=== PATIENT | female | born 1975 | race Caucasian/White ===

== ENCOUNTER 2023-10-22 19:45 | Outpatient (OUT) | payer OTHER, BC, SELFPAY ==
[2023-10-28 14:10] LABS: Age Gdln ACOG Testing Note (.); HPV Aptima Negative (Negative); IGP, Aptima HPV, rfx 16/18,45 Note (.)
== END 2023-10-22 19:46 | disposition home or self-care (01) ==
LOC: LAB 19:50
PROVIDERS: Visit Provider Obstetrics & Gynecology
DX: Z01.419 Encounter for gynecological examination (general) (routine) without abnormal findings (principal)
CPT/HCPCS: 87624; G0145

== ENCOUNTER 2024-10-26 20:37 | Outpatient (REF) | payer OTHER, BC, SELFPAY ==
--- OUTSIDE RECORDS SUMMARY | 2024-10-26 20:41 | XMS_ITS | CCD ---
Author Organization [facility] Care Team Providers Care Vineyard Worker Name Role Phone Triston James MD Primary Care Provider Luc James Unavailable TRISTON JAMES Primary Care Physician Triston James MD Primary Care Provider DR LUIS ANGEL MONAE Admitting Unavailable LETHA, DR LUIS ANGEL Byrne Attending Unavailable NINA, DR HAWTHORNE Referring Unavailable ERIKA, DR TRISTON Wilkins Primary Care Unavailable NINA, DR HAWTHORNE Admitting Unavailable NINA, DR HAWTHORNE Attending Unavailable ERIKA, DR TRISTON Wilkins Primary Care Unavailable NINA, DR HAWTHORNE Consulting Unavailable ERIKA, DR TRISTON Wilkins Admitting Unavailable ERIKA, DR TRISTON Wilkins Attending Unavailable ERIKA, DR TRISTON Wilkins Primary Care Unavailable ERIKA, DR TRISTON Wilkins Consulting Unavailable ERIKA, DR TRISTON Wilkins Primary Care Unavailable JEISON MOSCOSO Admitting Unavailable JEISON MOSCOSO Attending Unavailable JEISON MOSCOSO Consulting Unavailable Triston James Unavailable TRISTON JAMES Primary Care Unavailable RUTH APODACA Attending Unavailable RUTH APODACA Attending Unavailable TRISTON JAMES Primary Care Unavailable RUTH APODACA Attending Unavailable TRISTON JAMES Primary Care Unavailable MD Triston James Primary Care Provider MD Ganesh May Attending Provider GEORGE WOOD Attending Unavailable Triston James MD Primary Care Provider [phone] Kang Blanco Attending Unavailable Kang Blanco Admitting Unavailable Triston James Primary Care Unavailable MD Triston James Primary Care Provider [phone] MD Kang Blanco Attending Provider [phone] Kang BLANCO Attending Unavailable Kang BLANCO Attending Unavailable JAMES, TRISTON E Referring Unavailable JAMES, TRISTON E Primary Care Unavailable JAMES, TRISTON E Primary Care Unavailable CAMPBELL, NICKO Wilkins Attending Unavailable CAMPBELL, NICKO E Referring Unavailable JAMES, TRISTON E Referring Unavailable JAMES, TRISTON E Primary Care Unavailable CAMPBELL, NICKO E Admitting Unavailable CAMPBELL, NICKO E Attending Unavailable JAMES, TRISTON E Primary Care Unavailable ROSE MARIE BRYANT Attending Unavailable JAMES, TRISTON E Primary Care Unavailable CAMPBELL, NICKO E Attending Unavailable CAMPBELL, NICKO E Referring Unavailable JAMES, TRISTON E Referring Unavailable JAMES, TRISTON E Primary Care Unavailable CAMPBELL, NICKO E Admitting Unavailable CAMPBELL, NICKO E Attending Unavailable JAMES, TRISTON E Primary Care Unavailable MAP EMMANUELFrancisco Javier Carter Referring Unavailable JAMES, TRISTON E Primary Care Unavailable CAMPBELL, NICKO E Attending Unavailable CAMPBELL, NICKO E Referring Unavailable JAMES, TRISTON E Primary Care Unavailable CAMPBELL, NICKO E Attending Unavailable CAMPBELL, NICKO E Admitting Unavailable CAMPBELL, NICKO E Referring Unavailable JAMES, TRISTON E Primary Care Unavailable ANGELITA MIRANDA Attending Unavailable JAMES, TRISTON E Referring Unavailable JAMES, TRISTON E Primary Care Unavailable NIENBERG, KENNETH Byrne Attending Unavailable JAMES, TRISTON E Referring Unavailable JAMES, TRISTON E Primary Care Unavailable NIENBERG, KENNETH Byrne Attending Unavailable JAMES, TRISTON E Primary Care Unavailable GEORGE WOOD Referring Unavailable JAMES, TRISTON E Referring Unavailable JAMES, TRISTON E Primary Care Unavailable JAMES, TRISTON E Referring Unavailable JAMES, TRISTON E Primary Care Unavailable NIENBERG, KENNETH Byrne Attending Unavailable JAMES, TRISTON E Primary Care Unavailable JAMES, TRISTON E Referring Unavailable CAMPBELL, NICKO E Admitting Unavailable CAMPBELL, NICKO E Attending Unavailable JAMES, TRISTON E Primary Care Unavailable NIENBERGKENNETH S Referring Unavailable NIENBERG, KENNETH Byrne Attending Unavailable JAMES, TRISTON E Referring Unavailable JAMES, TRISTON E Primary Care Unavailable NIENBERG, KENNETH Byrne Attending Unavailable JAMES, TRISTON E Referring Unavailable JAMES, TRISTON E Primary Care Unavailable CAMPBELL, NICKO E Admitting Unavailable CAMPBELL, NICKO E Attending Unavailable JAMES, TRISTON E Primary Care Unavailable CAMPBELL, NICKO Wilkins Attending Unavailable CAMPBELL, NICKO Wilkins Referring Unavailable James Triston LARSEN Primary Care Unasmith Fan PA-C, Macarena Sloan Attending Delia Fan PA-C, Macarena Sloan Attending Triston Mina MDzabeth Primary Care Munira James MD, Triston Fiore Primary Care Unava ilthien Fan PA-C, Macarena Sloan Attending Delia James MD, Triston Fiore Primary Care Tosinva win Reyes PA-C, Kenneth Soto Referring Un available Mita ROMO, Macarena Sloan Attending Delia James MD, Triston Primary Care Provider Allergies Allergy Classification Reported Allergen(s) Allergy Type Date of Onset Reaction(s) Facility (20 sources) oxaprozin; Translations: [OXAPROZIN] Drug Allergy 11-30-19 [facility] (20 sources) Sulfamethoxazole / Trimethoprim; Translations: [sulfamethoxazole-t rimethoprim] Drug Allergy 02-28-20 Cough, [facility] (20 sources) Doxycycline; Translations: [doxycycline] Drug Allergy 09-27-20 Rash [facility] (17 sources) Cat Dander; Translations: [CAT DANDER] Drug Allergy 09-27-20 Other: See Comments [facility] (18 sources) Sulfacetamide / Sulfur Drug Allergy Unknown [facility] Other (5 sources) Cat; Translations: [Cats] Propensity to adverse reactions to substance Mild (qualifier value) [facility] (13 sources) Sulfamethoxazole; Translations: [sulfamethoxazole] Drug Allergy 09-27-20 Other (See Comments) [facility] (2 sources) oxaprozin Drug Allergy [facility] (2 sources) Sulfamethoxazole / Trimethoprim Drug Allergy 07-17-20 13 [facility] (12 sources) Substance with sulfonamide structure and antibacterial mechanism of action (substance) Drug allergy 10-17-19 24 Unknown [facility] Other (9 sources) Ultram *ANALGESICS - OPIOID* Propensity to adverse reactions Unknown [facility] Other (9 sources) Ceftin *CEPHALOSPORINS* Propensity to adverse reactions Unknown [facility] Other (7 sources) Cephalosporins (Antibiotic) Allergy to substance 01-21-20 Unknown Reaction [facility] (7 sources) Sulfacetamide Drug Allergy 01-21-20 Unknown Reaction [facility] (7 sources) Sulfonamides (Antibiotic) Allergy to substance 01-21-20 Unknown Reaction [facility] (10 sources) traMADol Drug Allergy 10-17-19 Unknown Reaction [facility] (7 sources) Trimethoprim Drug Allergy 01-21-20 Unknown Reaction [facility] (6 sources) empagliflozin Drug Allergy 02-12-20 Itching [facility] (6 sources) metFORMIN Drug Allergy 02-12-20 Diarrhea [facility] (2 sources) Sulfamethoxazole / Trimethoprim; Translations: [Bactrim] Drug Allergy [facility] (3 sources) Cefuroxime Drug Allergy 10-17-19 [facility] Work Phone: (2 sources) Sulfamethoxazole Propensity to adverse reactions 09-27-20 [facility] Medications Current Medications Medication Drug Class(es) Dates Sig (Normalized) Sig (Original) 0.25 MG, 0.5 MG Dose 3 ML semaglutide 0.68 MG/ML Pen Injector [Ozempic] (1 source) Start: 02-24-2024 Ozempic 2 mg/3 mL (0.25 mg or 0.5 mg dose) subcutaneous solution mg, SubCutaneous, qWeek, Refills(s) 0 Start Date: 02/24/24 Status: Ordered 3 ML insulin glargine-yfgn 100 UNT/ML Pen Injector [Semglee] (3 sources) Start: 05-21-2022 Semglee (Prefilled Pen) 100 units/mL subcutaneous solution Start Date: 05/21/22 Status: Ordered acarbose 25 mg oral tablet (5 sources) alpha-Glucosidas e Inhibitor Start: 11-20-2021 take 1 mg by mouth three times daily acarbose 25 mg oral tablet mg tab(s), Oral, TID, Refills(s) 0 Start Date: 11/20/21 Status: Ordered Start: 10-27-2021 End: 02-05-2022 take 1 tablet by mouth once daily at dinner acarbose (PRECOSE) 25 mg tablet Indications: Uncontrolled type 2 diabetes mellitus with hyperglycemia, without long-term current use of insulin (HCC) Take 1 tablet by mouth daily with dinner. 90 tablet 1 10/27/2021 02/05/2022 Discontinued (Discontinued by Patient) Comment on above: Take 1 tablet by sharon th daily with dinner. cetirizine hydrochloride 10 mg oral capsule (20 sources) Histamine-1 Receptor Antagonist Start: take 1 capsule by mouth once daily Cetirizine (Allergy Relief (Cetirizine)) 10 mg capsule Active 0 .ROUTE .COMPLEX July 14, 2024 10:58am TAKE 1 CAPSULE BY MOUTH EVERY DAY Start: 10-14-2023 End: 07-14-2024 take 1 capsule by mouth in the morning [facility] 10 MG capsule Take 1 capsule by mouth in the morning. 10/14/2023 Active Start: 03-23-2022 take 1 tablet by sharon th in the morning cetirizine (ZyrTEC) 10 mg tablet Take 1 tablet (10 mg total) by mouth in the morning. 03/23/2022 Active Start: 08-24-2015 take 1 capsule by mo uth once daily Cetirizine (ZYRTEC) 10 mg cap Take 10 mg by mouth once daily. 0 08/24/2015 Active Comment on above: Take 10 mg by mouth once daily. clobetasol propionate 0.5 mg/ml topical cream (6 sources) Corticosteroid Start: clobetasoL (TEMOVATE) 0.05 % cream Apply 1 Application topically in the morning. 05/07/2022 Active [facility] 10 MG (17 sources) take 1 capsule by mouth once daily [facility] 10 MG TAKE 1 CAPSULE BY MOUTH EVERY DAY for 25 Active take 1 capsule by mouth once christina ly [facility] 10 MG 1 capsule Orally Once a day for 30 day(s) Active [facility] ALLERGY(CETRZN) 10 MG SFGL (1 source) Start: 02-24-2024 [facility] ALL[facility](CETRZN) 10 MG SFGL [facility] ALLERGY(CETRZN) 10 MG SFGL Start Date: 02/24/24 Status: Ordered diclofenac sodium 50 mg delayed release oral tablet (4 sources) Nonsteroidal Anti-inflammatory Drug Start: 06-17-2023 End: 10-26-2024 diclofenac (Voltaren) 50 MG EC tablet 06/17/2023 10/26/2024 Discontinued (Other) docusate sodium 100 mg oral capsule (9 sources) Start: 12-07-2020 take 2 capsules by mouth every twenty-four hours Dulcolax Stool Softener 100 MG 2 capsule as needed Orally Once a day for 90 days Nov, Active Start: 12-07-2020 take 2 capsules by m outh once daily as needed Dulcolax Stool Softener 100 MG 2 capsule as needed Orally Once a day for 90 days Nov, Active empagliflozin 10 mg oral tablet (11 sources) Sodium-Glucose Cotransporter 2 Inhibitor Start: 04-10-2023 take 1 tablet by mouth every twenty-four hours JARDIANCE 10 MG 1 tablet Orally Once a day for 90 days Mar, Active Start: 02-18-2023 Jardiance Oral , qAM Start Date: 02/18/23 Status: Ordered Start: 11-08-2022 End: 01-04-2023 take 1 tablet by mouth once daily at breakfast empagliflozin (JARDIANCE) 10 mg tablet Take 1 tablet by mouth daily with breakfast. 90 tablet 0 01/04/2023 Active Comment on above: Take 1 tablet by sharon th daily with breakfast. esomeprazole 40 mg delayed release oral capsule (20 sources) Proton Pump Inhibitor Start: End: take 1 capsule by mouth once daily Esomeprazole Magnesium (Nexium) 40 mg capsule,delayed release(DR/EC) Active 40 MG PO Daily April 06, 2024 12:51pm Start: 05-14-2017 take 40 mg by mouth once daily Nexium 40 mg, Oral, Daily, Refills(s) 0, Control of stomach acid Start Date: 05/14/17 Status: Ordered Comment on above: Take 40 mg by mouth once daily. ethinyl estradiol 0.035 mg / norethindrone acetate 1 mg oral tablet (20 sources) Estrogen Start: 08-10-2024 End: 10-26-2025 norethindrone-ethinyl estradiol (Ortho-Novum, Nortrel) 1-35 MG-MCG tablet Indications: Well woman exam with routine gynecological exam Take 1 tablet by mouth Daily 28 tablet 11 10/26/2024 10/26/2025 Active Start: 01-17-2024 take 1 tablet by sharon th once daily Norethindrone-Ethin Estradiol Active 1 TAB PO Daily January 17, 2024 12:00am Start: 06-26-2023 NORTREL 1/35, 28, 1-35 mg-mcg per tablet 06/26/2023 Active Start: 03-23-2020 take 1 tablet by sharon th once daily Pirmella 1/35 oral tablet 1 tab(s), Oral, Daily, control/menstrual regulation Start Date: 03/23/20 Status: Ordered Start: 11-02-2019 take 1 tablet by sharon th once daily Norethindrone-Eth Estradiol 1-35 mg-mcg per tablet Take 1 tablet by mouth once daily. 0 11/02/2019 Active Nortrel 1/35 (21 ) 1-35 MG-MCG as directed Orally Active Nortrel 1/35 (21 ) 1-35 MG-MCG as directed Orally Active Comment on above: Take 1 tablet by sharon th once daily. ferrous sulfate 325 mg oral tablet (19 sources) Start: 9 take 325 mg by mouth once daily Ferrous Sulfate Active 325 MG PO Daily February 12, 2024 12:00am fluconazole 150 mg oral tablet (1 source) Azole Antifungal Start: 2 End: 2 take 1 tablet by mouth once fluconazole (DIFLUCAN) 150 mg tablet Indications: Vaginal yeast infection Take 1 tablet by mouth one time only for 1 dose. 1 tablet 1 02/15/2022 02/15/2022 Active Comment on above: Take 1 tablet by sharon one time only for 1 dose. fluorouracil 50 mg/ml topical cream (2 sources) Nucleoside Metabolic Inhibitor Start: 4 fluorouracil (Efudex) 5 % cream APPLY 1-2 GRAMS TO CHEST TWICE DAILY UP TO THREE WEEKS. 09/22/2024 Active gabapentin 800 mg oral tablet (20 sources) Anti-epileptic Agent Start: 4 End: 4 take 800 mg by mouth once daily Gabapentin Active 800 MG PO Daily August 03, 2024 8:27pm Start: 05-14-2017 take 300 mg by mouth once jailyn y gabapentin 300 mg, Oral, Daily, Refills(s) 0, Pain Start Date: 05/14/17 Status: Ordered take 2 capsules by m outh at bedtime gabapentin (Neurontin) 300 MG capsule Take 600 mg by mouth at bedtime Active take 1 tablet by sharon th every twenty-four hours Gabapentin 800 MG 1 tablet Orally Once a day for 90 days Active Comment on above: Take 600 mg by mouth once daily. hydroCHLOROthiazide 25 mg oral tablet (20 sources) Thiazide Diuretic Start : 07-21 End: 02-12 hydroCHLOROthiazide (HYDRODiuril) 25 MG tablet 09/20/2023 Active hydroxychloroquine sulfate 200 mg oral tablet (7 sources) Antimalarial, Antirheumatic Agent Start : 08-10 take 1 tablet by mouth in the morning hydrOXYchloroQUINE (PLAQUENIL) 200 mg tablet Take 1 tablet (200 mg total) by mouth in the morning. 08/10/2020 Active ibuprofen 800 mg oral tablet (20 sources) Nonsteroidal Anti-inflammatory Drug Start : 06-10 ibuprofen 800 MG tablet Indications: Other chronic pain TAKE 1 TABLET THREE TIMES A DAY NEEDED 270 tablet 3 06/10/2023 Active Start: 10-12-2021 take 1 tablet by sharon th every eight hours as needed for pain ibuprofen (ADVIL,MOTRIN) 800 mg tablet Indications: Vaginal pain Take 1 tablet (800 mg total) by mouth every 8 (eight) hours as needed for pain. 30 tablet 3 10/12/2021 Active Start: 09-22-2019 take 1 tablet by sharon th every eight hours as needed ibuprofen (MOTRIN) 800 mg tablet Take 800 mg by mouth three times daily as needed. 0 09/22/2019 Active Start: 05-14-2017 take 800 mg by mouth every six hours as needed for pain ibuprofen 800 mg, Oral, q6hr, PRN as needed for pain, Refills(s) 0 Start Date: 05/14/17 Status: Ordered Comment on above: Take 800 mg by mouth three times daily as needed. Insulin Glargine-Yfgn (Semglee(Insulin Glarg-Yfgn)Pen) 100 unit/mL (3 mL) insulin pen (12 sources) Start: 06-11-2024 Insulin Glargine-Yfgn (Semglee(Insulin Glarg-Yfgn)Pen) 100 unit/mL (3 mL) insulin pen Active 36 UNIT SUBCUT Every evening June 11, 2024 4:10pm Start: 06-11-2024 End: 06-11-2024 Insulin Glargine-Yfgn (Semgl ee(Insulin Glarg-Yfgn)Pen) 100 unit/mL (3 mL) insulin pen Discontinued 36 UNIT SUBCUT Every evening June 11, 2024 4:10pm June 11, 2024 4:11pm Start: 02-12-2024 End: 06-11-2024 Insulin Glargine-Yfgn (Semgl ee(Insulin Glarg-Yfgn)Pen) 100 unit/mL (3 mL) insulin pen Discontinued 40 UNIT SUBCUT Every evening February 12, 2024 12:00am June 11, 2024 4:10pm Start: 02-12-2024 Insulin Glargi ne-Yfgn (Semglee(Insulin Glarg-Yfgn)Pen) 100 unit/mL (3 mL) insulin pen Active 40 UNIT SUBCUT Every evening February 12, 2024 12:00am insulin glargine-yfgn 100 unit/mL (3 mL) insulin pen (7 sources) Start: 02-26-2022 insulin glargi ne-yfgn 100 unit/mL (3 mL) insulin pen Inject 30 unit(s) each evening before bed 02/26/2022 Active Start: 02-26-2022 insulin glargi ne-yfgn 100 unit/mL (3 mL) insulin pen Inject 30 unit(s) each evening before bed 0 02/26/2022 Active insulin isophane, human 100 unt/ml injectable suspension (1 source) inject 0.07 mL by subcutaneous injection once insulin NPH (HumuLIN N,NovoLIN N) 100 unit/mL injection Inject 0.07 mL (7 Units total) under the skin once. Patient took one time before having pain procedure done 09/04/24 Active lidocaine 0.05 mg/mg topical ointment (15 sources) Antiarrhythmic, Amide Local Anesthetic Start: 019 lidocaine (XYLOCAINE) 5 % ointment Indications: Vaginal pain Apply 1 application topically as needed for pain. 35.44 g 2 10/12/2021 Active Comment on above: Apply 1 application to affected area at bedtime as needed. loperamide hydrochloride 2 mg oral capsule (12 sources) Opioid Agonist Start: 019 take 1 capsule by mouth every six hours as needed loperamide 2 mg Cap 2 mg = 1 cap(s), Oral, q6hr, PRN as needed for loose stool Start Date: 03/23/20 Status: Ordered Comment on above: Take 2 mg by mouth a s needed. meloxicam 15 mg oral tablet (20 sources) Nonsteroidal Anti-inflammatory Drug Start: End: take 1 tablet by mouth in the morning meloxicam (Mobic) 15 MG tablet Take 15 mg by mouth in the morning. 05/27/2023 Active metFORMIN hydrochloride 1000 mg oral tablet (7 sources) Biguanide take 1 tablet by mouth once daily at breakfast metFORMIN (GLUCOPHAGE) 1000 mg tablet Take 1 tablet (1,000 mg total) by mouth daily with breakfast. Active milnacipran hydrochloride 100 mg oral tablet (20 sources) Serotonin and Norepinephrine Reuptake Inhibitor Start: take 100 mg by mouth twice daily Milnacipran Active 100 MG PO Twice daily January 17, 2024 12:00am Start: 05-14-2017 take 100 mg by mouth once jailyn y Savella 100 mg, Oral, Daily, Refills(s) 0, Other (see comment) Start Date: 05/14/17 Status: Ordered Comment on above: Take 100 mg by mouth once daily. 120 actuat mometasone furoate 0.2 mg/actuat metered dose inhaler (7 sources) Corticosteroid take 1 puff(s) by inhalation once daily in the evening mometasone (ASMANEX HFA) 200 mcg/actuation HFA aerosol inhaler 1 puff in the evening Inhalation Once a day Active montelukast (20 sources) Leukotriene Receptor Antagonist Start: 05-01-20 Montelukast Active 0 .ROUTE .COMPLEX May 01, 2024 10:52am TAKE 1 TABLET AT BEDTIME Start: 02-04-2024 End: 05-01-2024 Montelukast Discontinued 0 . ROUTE .COMPLEX February 04, 2024 9:43am May 01, 2024 10:52am TAKE 1 TABLET AT BEDTIME Start: 02-04-2024 Montelukast Ac tive 0 .ROUTE .COMPLEX February 04, 2024 9:43am TAKE 1 TABLET AT BEDTIME Start: 08-28-2018 End: 02-04-2024 take 10 mg by mouth once daily at bedtime Montelukast Discontinued 10 MG PO Daily at bedtime January 17, 2024 12:00am February 04, 2024 9:43am Singulair Active Comment on above: Take 10 mg by mouth once daily. 24 hr propranolol hydrochloride 160 mg extended release oral capsule (20 sources) beta-Adrenergic Alexa Start: 07-16-2024 Propranolol Active 0 .ROUTE .COMPLEX 90 July 16, 2024 10:26am TAKE 1 CAPSULE DAILY Start: 01-17-2024 End: 07-16-2024 take 160 mg by mouth once daily Propranolol Discontinued 160 MG PO Daily January 17, 2024 12:00am July 16, 2024 10:26am Start: 11-25-2019 take 160 mg by mouth once daily propranolol ER (INDERAL LA) 160 mg Cs24 Take 160 mg by mouth once daily. 0 11/25/2019 Active Start: 05-14-2017 take 160 mg by mouth once daily propranolol 160 mg, Oral, Daily, Refills(s) 0, High blood pressure Start Date: 05/14/17 Status: Ordered Comment on above: Take 160 mg by mouth once daily. pyridoxine (6 sources) Start: 02-12-2024 take 100 mg by mouth once daily pyridoxine (vitamin B6) Active 100 MG PO Daily February 12, 2024 12:00am Semaglutide (8 sources) Start: 06-11-2024 inject 1 mg by subcutaneous injection every week Semaglutide (Ozempic) 1 mg/dose (4 mg/3 mL) pen injector Active 1 MG SUBCUT every week June 11, 2024 4:11pm Start: 02-27-2024 End: 06-11-2024 inject 1 mg by subcutaneous injection every week Semaglutide (Ozempic) 1 mg/dose (4 mg/3 mL) pen injector Discontinued 1 MG SUBCUT every week February 27, 2024 12:00am June 11, 2024 4:11pm Start: 02-27-2024 inject 1 mg by subcu taneous injection every week Semaglutide (Ozempic) 1 mg/dose (4 mg/3 mL) pen injector Active 1 MG SUBCUT every week 9 February 27, 2024 12:00am 0.25 mg, 0.5 mg dose 1.5 ml semaglutide 1.34 mg/ml pen injector (5 sources) semaglutide (OZE MPIC) 0.25 mg or 0.5 mg(2 mg/1.5 mL) pen injector Inject 0.25 mg under the skin every 7 days. Active Semglee 100 UNIT/ML (9 sources) Semglee 100 UNIT /ML 40 units Subcutaneous before bed for 90 days Active Semglee 100 UNIT /ML 40 units Subcutaneous before bed Active Semglee, yfgn, 100 UNIT/ML pen (3 sources) inject 40 [IU] by subcutaneous injection at bedtime Semglee, yfgn, 100 UNIT/ML pen INJECT 40 UNITS UNDER THE SKIN BEFORE BEDTIME Active SITagliptin 25 mg oral tablet (7 sources) Dipeptidyl Peptidase 4 Inhibitor take 1 tablet by mouth in the morning SITagliptin (JANUVIA) 25 mg tablet Take 1 tablet (25 mg total) by mouth in the morning. Active SUMAtriptan 100 mg oral tablet (20 sources) Serotonin-1b and Serotonin-1d Receptor Agonist Start: 11-20-19 SUMAtriptan (Imitrex) 100 MG tablet 11/20/2022 Active Start: 11-20-2022 take 1 tablet by sharon th every two hours as needed, then take 1 tablet by mouth twice daily as needed SUMAtriptan Succinate 100 MG 1 tablet at least 2 hours between doses as needed Orally Twice a day for 90 days Nov, Active traZODone hydrochloride 150 mg oral tablet (20 sources) Serotonin Reuptake Inhibitor Start: 01-29-2024 Trazodone Active 0 .ROUTE .COMPLEX 90 January 29, 2024 9:42pm TAKE 1 TABLET AT BEDTIME Start: 05-14-2017 End: 01-29-2024 take 150 mg by mouth once daily at bedtime Trazodone Discontinued 150 MG PO Daily at bedtime January 17, 2024 12:00am January 29, 2024 9:42pm take 1 tablet by sharon th every twenty-four hours in the morning traZODone (OLEPTRO) 150 mg tablet extended release 24 hr Take 1 tablet (150 mg total) by mouth in the morning. Active Comment on above: Take 150 mg by mouth daily at bedtime. vitamin b6 100 mg oral tablet (7 sources) take 1 tablet by mouth in the morning pyridoxine, vitamin B6, (B-6) 100 mg tablet Take 1 tablet (100 mg total) by mouth in the morning. Active Zinc (7 sources) take 1 tablet by mouth in the morning zinc 50 mg tablet tablet Take 1 tablet (50 mg total) by mouth in the morning. Active take 1 tablet by mouth in the mo rning zinc 50 mg tablet tablet Take 1 tablet (50 mg total) by mouth in the morning. 0 Active zinc gluconate 50 mg oral tablet (6 sources) Start: 02-12-2024 take 50 mg by mouth once daily Zinc Gluconate Active 50 MG PO Daily February 12, 2024 12:00am Completed/Discontinued Medications Medication Drug Class(es) Dates Sig (Normalized) Sig (Original) amoxicillin 500 mg oral capsule (9 sources) Penicillin-class Antibacterial Start: 10-24-2019 take 1 capsule by mouth twice daily amoxicillin (POLYMOX, AMOXIL) 500 mg capsule Take 500 mg by mouth twice daily. 0 10/24/2019 Active Comment on above: Take 500 mg by mouth twice daily. canagliflozin 300 mg oral tablet (16 sources) Sodium-Glucose Cotransporter 2 Inhibitor Start: 02-05-2022 End: 02-06-2022 take 1 tablet by mouth once daily at breakfast canagliflozin (INVOKANA) 300 mg tablet Indications: Uncontrolled type 2 diabetes mellitus with hyperglycemia, without long-term current use of insulin (HCC) Take 1 tablet by mouth daily with breakfast. 90 tablet 3 02/06/2022 Active Start: 08-18-2021 take 1 tablet by sharon th in the morning INVOKANA 100 mg tablet Take 1 tablet (100 mg total) by mouth in the morning. 08/18/2021 Active Start: 08-18-2021 End: 02-05-2022 take 1 tablet by mouth twice daily canagliflozin (INVOKANA) 100 mg tab Indications: Uncontrolled type 2 diabetes mellitus with hyperglycemia, without long-term current use of insulin (HCC) Take 1 tablet by mouth twice daily. 0 12/01/2021 02/05/2022 Discontinued Comment on above: Take 1 tablet by sharon th twice daily. Take 1 tablet by sharon th daily with breakfast. carisoprodol 350 mg oral tablet (20 sources) Muscle Relaxant Start: End: take 350 mg by mouth once daily at bedtime Carisoprodol Discontinued 350 MG PO Daily at bedtime January 17, 2024 12:00am February 24, 2024 12:51pm carisoprodol (SO MA) 350 mg tablet Take 250 mg by mouth Daily before evening meal. Active Comment on above: Take 350 mg by mouth once daily. dicyclomine hydrochloride 10 mg oral capsule (5 sources) Anticholinergic End: dicyclomine (BENTYL) 10 mg capsule Take 10 mg by mouth as needed. 0 02/26/2022 Discontinued (Discontinued by Patient) Comment on above: Take 10 mg by mouth as needed. 3 ml insulin glargine 100 unt/ml pen injector (20 sources) Insulin Analog Start: End: inject 40 [IU] by subcutaneous injection once daily in the evening Insulin Glargine Discontinued 40 UNIT SUBCUT Every evening February 12, 2024 7:26am February 27, 2024 4:16pm Start: 01-21-2024 End: 01-21-2024 inject 40 [IU] by subcutaneous injection twice daily Insulin Glargine Discontinued 40 UNIT SUBCUT Twice daily January 21, 2024 12:00am January 21, 2024 3:40pm Start: 01-17-2024 End: 01-21-2024 inject 40 [IU] by subcutaneous injection once daily in the evening Insulin Glargine Discontinued 40 UNIT SUBCUT Every evening January 17, 2024 12:00am January 21, 2024 3:02pm Start: 02-05-2022 insulin glargi ne (LANTUS SOLOSTAR, BASAGLAR KWIKPEN) 100 unit/mL (3 mL) Inject 10 Units subcutaneously each evening 5 Pen 1 02/05/2022 Active Comment on above: Inject 10 Units subc utaneously each evening insulin glargine-yfgn (SEMGLEE,INSULIN GLARG-YFGN,PEN) 100 unit/mL (3 mL) insulin pen (10 sources) Start: 01-04-2023 insulin glargine-yfgn (SEMGLEE,INSULIN GLARG-YFGN,PEN) 100 unit/mL (3 mL) insulin pen Inject 40 unit(s) each evening before bed 15 Each 0 01/04/2023 Active Start: 10-12-2022 End: 01-04-2023 insulin glargine-yfgn (SEMGL EE,INSULIN GLARG-YFGN,PEN) 100 unit/mL (3 mL) insulin pen Inject 30 unit(s) each evening before bed 15 Each 1 10/12/2022 01/04/2023 Discontinued Start: 10-12-2022 insulin glargi ne-yfgn (SEMGLEE,INSULIN GLARG-YFGN,PEN) 100 unit/mL (3 mL) insulin pen Inject 30 unit(s) each evening before bed 15 Each 1 10/12/2022 Active Start: 02-26-2022 End: 10-12-2022 insulin glargine-yfgn (SEMGL EE,INSULIN GLARG-YFGN,PEN) 100 unit/mL (3 mL) insulin pen Inject 30 unit(s) each evening before bed 15 Pen 1 02/26/2022 10/12/2022 Discontinued Start: 02-26-2022 insulin glargi ne-yfgn (SEMGLEE,INSULIN GLARG-YFGN,PEN) 100 unit/mL (3 mL) insulin pen Inject 30 unit(s) each evening before bed 15 Pen 1 02/26/2022 Active Start: 02-06-2022 End: 02-26-2022 insulin glargine-yfgn (SEMGL EE,INSULIN GLARG-YFGN,PEN) 100 unit/mL (3 mL) insulin pen Inject 6 unit(s) each evening before bed 5 Pen 0 02/06/2022 02/26/2022 Discontinued Start: 02-06-2022 insulin glargi ne-yfgn (SEMGLEE,INSULIN GLARG-YFGN,PEN) 100 unit/mL (3 mL) insulin pen Inject 6 unit(s) each evening before bed 5 Pen 0 02/06/2022 Active Comment on above: Inject 6 unit(s) eac h evening before bed Inject 30 unit(s) ea ch evening before bed Inject 40 unit(s) ea ch evening before bed methylPREDNISolone (18 sources) Corticosteroid Start: 2017 Depo-Medrol 40 mg Sep, 40 mg pioglitazone 15 mg oral tablet (20 sources) Peroxisome Proliferator Receptor alpha Agonist, Peroxisome Proliferator Receptor gamma Agonist, Thiazolidinedione Start: 2023 End: 2023 take 0.5 tablet by mouth once daily Pioglitazone Discontinued 0 .ROUTE .COMPLEX 90 March 10, 2024 7:22am June 11, 2024 3:42pm TAKE 1/2 TABLET BY MOUTH DAILY Start: 02-12-2024 End: 03-10-2024 take 15 mg by mouth once daily Pioglitazone Discontinu ed 15 MG PO Daily February 12, 2024 10:15am March 10, 2024 7:22am Start: 01-17-2024 End: 02-12-2024 take 30 mg by mouth once daily Pioglitazone Discontinu ed 30 MG PO Daily January 17, 2024 12:00am February 12, 2024 10:21am Start: 01-04-2023 take 1 tablet by sharon th in the morning pioglitazone (Actos) 15 MG tablet Take 15 mg by mouth in the morning. 01/04/2023 Active Start: 09-18-2021 End: 02-26-2022 pioglitazone (ACTOS) 15 mg t ablet Indications: Uncontrolled type 2 diabetes mellitus with hyperglycemia, without long-term current use of insulin (HCC) TAKE 1 TABLET TWICE A DAY WITH MEALS 180 tablet 0 01/19/2022 02/26/2022 Discontinued Start: 05-15-2021 End: 06-11-2024 take 15 mg by mouth once daily Pioglitazone Discontinu ed 15 MG PO Daily June 11, 2024 12:00am June 11, 2024 4:11pm take 1 tablet by sharon th every twenty-four hours Pioglitazone HCl 30 MG 1 tablet Orally Once a day for 90 days Active Comment on above: TAKE 1 TABLET TWICE A DAY WITH MEALS Take 1 tablet by sharon th twice daily with meals. Take 1 tablet by sharon th once daily. predniSONE 20 mg oral tablet (3 sources) Start: 08-25-20 End: 08-30-20 take 1 tablet by mouth in the morning predniSONE (DELTASONE) 20 mg tablet Take 1 tablet (20 mg total) by mouth in the morning. 4 tablet 08/25/2024 08/26/2024 Discontinued (Reorder) triamcinolone acetonide 5 mg/ml topical cream (9 sources) Corticosteroid Start: 04-11-20 19 triamcinolone acetonide (KENALOG) 0.5 % cream Apply 1 application to affected area as needed. 0 01/22/2019 Active Comment on above: Apply 1 application to affected area as needed. Problems Active Problems Problem Classification Problem Date Documented Da te Episodic/Chronic Abdominal pain (11 sources) Abdominal pain; Translations: [Unspecified abdominal pain] Onset: 6 02-24-2024 Episodic Administrative/social admission (14 sources) Patient encounter status; Translations: [Dietary counseling and surveillance] 02-12-2024 Episodic Anxiety disorders (3 sources) Anxiety 03-10-2019 Chronic Asthma (11 sources) Exacerbation of asthma; Translations: [Unspecified asthma with (acute) exacerbation] 01-17-2024 Chronic Guzmán (2 sources) Corrosion of unspecified degree of unspecified foot, sequela; Translations: [Corrosion of unspecified degree of unspecified foot, sequela] Episodic Chronic obstructive pulmonary disease and bronchiectasis (2 sources) Bronchitis; Translations: [Bronchitis, not specified as acute or chronic] Episodic Diabetes mellitus with complications (20 sources) Type 2 diabetes mellitus; Translations: [Type 2 diabetes mellitus with hyperglycemia] Onset: 1 Chronic Diabetes mellitus without complication (20 sources) Diabetic on oral treatment; Translations: [Type 2 diabetes mellitus without complications] Onset: 7 08-18-2021 Chronic Diabetes mellitus without complication (4 sources) Glycosuria; Translations: [Glycosuria] Onset: 3 Episodic Disorders of lipid metabolism (15 sources) Hyperlipidemia; Translations: [Hyperlipidemia, unspecified] Onset: 4 02-12-2024 Chronic Diverticulosis and diverticulitis (18 sources) Diverticular disease of colon; Translations: [Diverticulosis of large intestine without perforation or abscess without bleeding] Chronic Esophageal disorders (20 sources) Gastroesophageal reflux disease without esophagitis; Translations: [Gastro-esophageal reflux disease without esophagitis] 01-17-2024 Chronic Essential hypertension (18 sources) Hypertensive disorder; Translations: [Essential (primary) hypertension] 03-10-2019 Chronic Headache; including migraine (9 sources) Chronic migraine without aura, non-refractory; Translations: [Migraine without aura, not intractable, without status migrainosus] Onset: 6 01-17-2024 Chronic Immunizations and screening for infectious disease (1 source) Encounter for screening for human papillomavirus (HPV); Translations: [ENC SCREENING HUMAN PAPILLOMAVIRUS] Onset: 3 Episodic Noninfectious gastroenteritis (2 sources) Non-infective enteritis and colitis; Translations: [Noninfective gastroenteritis and colitis, unspecified] Episodic Nonspecific chest pain (2 sources) Precordial pain; Translations: [Chest pain, unspecified] Episodic Other aftercare (2 sources) History and physical examination, follow-up; Translations: [Encounter for follow-up examination after completed treatment for conditions other than malignant neoplasm] Episodic Other aftercare (14 sources) Long-term current use of insulin; Translations: [termite helper (current) use of insulin] 01-17-2024 Episodic Other bone disease and musculoskeletal deformities (6 sources) Costal chondritis 05-15-2017 Episodic Other circulatory disease (2 sources) Elevated blood-pressure reading without diagnosis of hypertension; Translations: [Elevated blood-pressure reading, without diagnosis of hypertension] Episodic Other diseases of bladder and urethra (3 sources) Urethral stricture 03-10-2019 Episodic Other ear and sense organ disorders (9 sources) Otalgia, right ear; Translations: [Right ear pain] 01-22-2024 Episodic Other female genital disorders (2 sources) Dyspareunia; Translations: [Unspecified dyspareunia] Chronic Other female genital disorders (7 sources) Vulvodynia; Translations: [Vulvodynia, unspecified] Onset: 7 07-17-2017 Chronic Other female genital disorders (2 sources) Noninflammatory disorder of the vagina; Translations: [Other specified noninflammatory disorders of vagina] Episodic Other female genital disorders (2 sources) Disorder of female genital organs; Translations: [Unspecified condition associated with female genital organs and menstrual cycle] Episodic Other female genital disorders (2 sources) Other specified conditions associated with female genital organs and menstrual cycle; Translations: [Oth cond assoc w female genital organs and menstrual cycle] Episodic Other gastrointestinal disorders (18 sources) Irritable bowel syndrome with diarrhea; Translations: [Irritable bowel syndrome with diarrhea] Chronic Other gastrointestinal disorders (20 sources) Irritable bowel syndrome; Translations: [Mixed irritable bowel syndrome] 01-17-2024 Chronic Other gastrointestinal disorders (18 sources) Constipation; Translations: [Constipation, unspecified] Episodic Other inflammatory condition of skin (2 sources) Lichen simplex chronicus; Translations: [Lichen simplex chronicus] Episodic Other inflammatory condition of skin (2 sources) Lichen planus; Translations: [Lichen planus, unspecified] Episodic Other lower respiratory disease (1 source) Other forms of dyspnea Episodic Other lower respiratory disease (9 sources) Nodule of lung; Translations: [Solitary pulmonary nodule] Episodic Other lower respiratory disease (1 source) Solitary pulmonary nodule Episodic Other nervous system disorders (20 sources) Chronic pain; Translations: [Other chronic pain] 01-17-2024 Chronic Other nervous system disorders (1 source) Other chronic pain Onset: 2 Resolved: 2 Chronic Other nutritional; endocrine; and metabolic disorders (6 sources) Obese class I; Translations: [Body mass index (BMI) 31.0-31.9, adult] Onset: 6 Chronic Other nutritional; endocrine; and metabolic disorders (2 sources) Simple obesity ; Translations: [Other obesity due to excess calories] Onset: 6 Chronic Other nutritional; endocrine; and metabolic disorders (2 sources) Hypervitaminosis D; Translations: [Hypervitaminosis D] Chronic Other nutritional; endocrine; and metabolic disorders (2 sources) Obesity; Translations: [Obesity, unspecified] Chronic Other nutritional; endocrine; and metabolic disorders (6 sources) Body mass index 30+ - obesity; Translations: [Body mass index (BMI) 34.0-34.9, adult] 02-12-2024 Chronic Other nutritional; endocrine; and metabolic disorders (5 sources) Body mass index (BMI) 34.0-34.9, adult; Translations: [Body Mass Index 34.0-34.9, adult] 02-12-2024 Chronic Other nutritional; endocrine; and metabolic disorders (4 sources) Overweight in adulthood with body mass index of 25 or more but less than 30; Translations: [Body mass index (BMI) 29.0-29.9, adult] Onset: 2 Episodic Other nutritional; endocrine; and metabolic disorders (3 sources) Body mass index (BMI) 29.0-29.9, adult; Translations: [Body Mass Index 29.0-29.9, adult] 06-11-2024 Episodic Other screening for suspected conditions (not mental disorders or infectious disease) (16 sources) Increased vitamin D; Translations: [Other specified abnormal findings of blood chemistry] Onset: 0 12-01-2019 Episodic Other skin disorders (2 sources) Eruption; Translations: [Rash and other nonspecific skin eruption] Episodic Other upper respiratory disease (2 sources) Seasonal allergic rhinitis; Translations: [Other seasonal allergic rhinitis] Chronic Other upper respiratory infections (2 sources) Chronic sinusitis; Translations: [Chronic sinusitis, unspecified] Chronic Residual codes; unclassified (1 source) Localized edema Episodic Residual codes; unclassified (2 sources) Tobacco user; Translations: [Tobacco use] Episodic Residual codes; unclassified (2 sources) Other specified health status; Translations: [Health status] Episodic Residual codes; unclassified (2 sources) Postmenopausal state; Translations: [Asymptomatic menopausal state] 10-26-2024 Episodic Rheumatoid arthritis and related disease (20 sources) Seronegative rheumatoid arthritis; Translations: [Rheumatoid arthritis without rheumatoid factor, unspecified site] 01-17-2024 Chronic Spondylosis; intervertebral disc disorders; other back problems (20 sources) Displacement of lumbar intervertebral disc without myelopathy; Translations: [Other intervertebral disc displacement, lumbosacral region] Onset: 1 03-18-2019 Chronic Spondylosis; intervertebral disc disorders; other back problems (20 sources) Mechanical low back pain; Translations: [Low back pain] Onset: 1 10-12-2021 Episodic Unclassified (2 sources) Exposure to acute respiratory syndrome coronavirus 2; Translations: [Contact with and (suspected) exposure to COVID-19] Unclassified (8 sources) Disorder of vitamin D; Translations: [Vitamin D imbalance] 01-21-2024 Past or Other Problems Problem Classification Problem Date Documented Da te Episodic/Chronic Acute bronchitis (2 sources) Acute bronchitis; Translations: [Acute bronchitis, unspecified] Onset: 02-12-2014 Episodic Calculus of urinary tract (20 sources) Calculus of kidney; Translations: [Calculus of kidney] Onset: 07-17-2017 12-01-2019 Episodic Genitourinary symptoms and ill-defined conditions (20 sources) Dysuria; Translations: [Dysuria] Onset: 10-12-2021 10-12-2021 Episodic Intestinal infection (2 sources) Clostridial gastroenteritis; Translations: [Enterocolitis due to Clostridium difficile, not specified as recurrent] Onset: 07-15-2018 Episodic Mycoses (2 sources) Candidiasis of vagina; Translations: [Candidiasis of vulva and vagina] Onset: 02-20-2022 Episodic Other aftercare (1 source) Other manager long term care (current) drug therapy; Translations: [OTH SUPERVISOR EPOXY FABRICATION CURRENT DRUG THERAPY] Onset: 02-20-2022 Episodic Other aftercare (3 sources) intermediate (current) use of insulin; Translations: [Type 2 diabetes mellitus with hyperglycemia, with long-term current use of insulin (HCC)] Onset: 01-04-2023 Episodic Other connective tissue disease (15 sources) Fibromyalgia; Translations: [Fibromyalgia] Onset: 07-17-2017 05-15-2017 Episodic Other connective tissue disease (2 sources) Neuralgia; Translations: [Neuralgia and neuritis, unspecified] Onset: 12-01-2018 Episodic Other gastrointestinal disorders (2 sources) Diarrhea; Translations: [Diarrhea, unspecified] Onset: 07-22-2014 Episodic Other gastrointestinal disorders (2 sources) Flatulence, eructation and gas pain; Translations: [Abdominal distension (gaseous)] Onset: 05-16-2016 Episodic Other inflammatory condition of skin (3 sources) Pruritus, unspecified; Translations: [PRURITUS UNSPECIFIED] Onset: 02-11-2022 Episodic Other nervous system disorders (2 sources) Facial nerve disorder; Translations: [Other disorders of facial nerve] Onset: 01-03-2016 Episodic Other nutritional; endocrine; and metabolic disorders (10 sources) Body mass index 25-29 - overweight; Translations: [Overweight] Onset: 10-12-2021 03-21-2020 Episodic Other upper respiratory infections (4 sources) Acute maxillary sinusitis; Translations: [Acute recurrent maxillary sinusitis] Onset: 02-12-2014 Episodic Poisoning by other medications and drugs (12 sources) Poisoning by vitamin D; Translations: [Poisoning by vitamins, accidental (unintentional), initial encounter] Onset: 01-22-2024 01-21-2024 Episodic Residual codes; unclassified (9 sources) Dietary intake finding; Translations: [Other specified health status] Onset: 12-01-2019 12-01-2019 Episodic Residual codes; unclassified (1 source) Asymptomatic menopausal state; Translations: [Asymptomatic menopausal state] Onset: 11-25-2023 Episodic Skin and subcutaneous tissue infections (2 sources) Pyoderma; Translations: [Pyoderma] Onset: 04-10-2019 Episodic Unclassified (1 source) Low back pain, unspecified M54.50 Onset: 04-24-2022 Resolved: 04-24-2022 Unclassified (3 sources) Asymptomatic microscopic hematuria 11-20-2021 Results Test Name Value Interpretation Reference Range Facility Neurosurgery Office/Clinic N nolan 09-29-2024 Neurosurgery Office/Clinic Note Chief Complaint pt states here for back and hasn't been seen since 2022 History of Present Illness Patient is a pleasant 49-year-old female with a history of type 2 diabetes, fibromyalgia, rheumatoid arthritis (currently following with rheumatology, but untreated), asthma, and migraines, who presents to the outpatient neurosurgical clinic today on behalf of complaints of chronic low back pain with more recent onset left gluteal and left lower extremity pain syndrome. Of note, patient reports she has historically consulted with a neurosurgeon in [place] greater than 5 years ago at which time, an anterior fusion of L5-S1 was discussed. Patient states she chose not to proceed with surgery, however symptoms worsened prompting her to seek evaluation with an alternate surgeon in [place], Dr. James, 04/2022. Formal office visit notes from consultation with Dr. James are independently reviewed at time of patient's office visit today with findings of no surgical requirement and recommendations for conservative management. Patient reports a greater than 5-year history of progressively worsening axial lumbar pain. She describes pain throughout the midline lower lumbar region and throughout the bilateral sacroiliac regions. In addition, patient reports the new onset of pain throughout the left superior lateral gluteal region with radiation into the left lower extremity in somewhat of an L5 distribution. She denies precipitating injury. Patient states pain is constant, but is worse first thing in the morning, with transitional movements, and with prolonged standing/walking. She notes minimal right gluteal pain, but denies right lower extremity radicular pain. She denies numbness or paresthesias in the lower extremities. Patient denies motor weakness in the lower extremities, bowel/bladder incontinence, or saddle paresthesias. Patient denies significant cervical or thoracic pain. She denies upper extremity or thoracic radicular pain. She denies numbness or paresthesias in the upper extremities or chest wall/thorax. Patient denies motor weakness in the upper extremities, decreased dexterity, or chronic gait imbalance. Work up includes: MRI lumbosacral spine 08/21/24: Primarily 1 level degenerative disc disease at L5 S1 with Modic changes noted in endplates at L5 S1; left central and paracentral disc with HIZ at L5-S1 with left L5-S1 neuroforaminal stenosis/lateral recess stenosis Flexion/extension films lumbosacral spine 10/24/2022: Stable Scoliosis x-rays 10/24/2022: No significant disruption in sagittal balance X-rays SI joints 10/24/2022: Moderate degenerative changes of the SI joints bilaterally Flexion/extension cervical spine (conducted secondary to history of RA) 10/24/2022: Dynamism at C1-2 without adelia instability DEXA 11/2023 [facility]: normal Patient currently rates her pain in the mid-high VAS range on a standard pain scale. Patient currently estimates that 65% of her pain is attributable to left gluteal and left lower extremity pain with remaining 35% being attributable to axial lumbar pain. She states pain interrupts sleep and activity level/function. Patient denies recent attempts at physical therapy, but reports that historically, therapy has caused aggravation and pain. She is established with pain management and attempted injection modalities including most recently, left SI RFA 01/31/2024, right SI RFA 03/01/2024, and left L5-S1 transforaminal JOHNNIE 09/04/2024. Patient historically has noted dramatic benefit with SI injections. Unfortunately, she reports the benefit from SI injections to be becoming more transient in nature and reports no benefit following left L5-S1 transforaminal JOHNNIE. Physical Exam Vitals & Measurements HR: 55 (Peripheral) BP: 120/66 HT: 152 cm WT: 65.9 kg WT: 65.9 kg (Dosing) BMI: 28.52 Additional Vitals BP Position/Location: Sitting, Right arm General: [Alert and oriented, well nourished, no acute distress]. Eye: [normal conjunctiva, no scleral icterus]. HENT: [normocephalic, atraumatic, oral mucosa pink and moist, dentition intact]. Neck: [Supple]. Pulmonary: [non-labored respiration]. Cardiovascular: [no edema, strong pulses with rapid capillary refill]. Skin: [Normal temperature and texture; no rashes; no digit clubbing or cyanosis]. Psychiatric: [Appropriate judgment and insight, appropriate mood and affect]. On exam in the office, patient is seated comfortably in a chair and is non painful appearing. The thoracolumbar spine is without deformities. Mild myospasms are noted throughout the lumbar paravertebral musculature bilaterally with trigger points throughout the musculature that are tender to palpation. Remainder of the thoracolumbar spine is nontender to palpation. Thoracolumbar spine is nontender to percussion. Bilateral sacroiliac regions are nontender to palpation. Good preservation in range of motion without pain with range of motion. No lumbar neurotension signs with negative straight leg raise, reverse straight leg r (more content not included)... Normal [facility] Provider Letteron 09-29-2024 Provider Letter (Inserted Image. Tosin ble to display) Triston James MD [address] [place] [address], [facility] [address] Re: Nathalia Patino Date of Visit: 09/29/2024 Dear Triston James, Thank you for allowing me to contribute to the care of your patient, Nathalia Patino. Attached is my office note and you will find my assessment and recommendations from our encounter today. Please do not hesitate to contact me with any questions or concerns. Sincerely, Macarena Fan PA-C [facility] [place] [address] The following document(s) were included in the letter: September 29, 2024 13:55:39 EST - (09/29/2024) Neurosurgery Office Visit Note Normal [facility] Glucose Glucometer (BldC) [M ass/Vol]on 09-04-2024 Glucose [Mass/Vol] 97 mg/dL Normal 65-99 [facility] Glucose [Mass/Vol] 91 mg/dL Normal 65-99 [facility] MR LUMBAR SPINE WO CONTon MR LUMBAR SPINE WO CONT MR LUMBAR SPINE WO CONT MRI LUMBAR SPINE WITHOUT CONTRAST COMPARISON: None. HISTORY: Low back pain and radiculopathy. TECHNIQUE: Multisequence, multiplanar MRI of the lumbar spine performed without contrast. FINDINGS: Severe disc desiccation is seen at the L5-S1 level. The disc spaces are otherwise preserved. There are no fractures seen. The conus medullaris terminates normally. There are no paraspinous masses. L1-2: Within normal limits. No to-3: Within normal limits. L3-4: Mild disc bulge. There is no neural foraminal encroachment or central canal stenosis. L4-5: Mild diffuse disc bulge and mild facet arthropathy. There is no neural foraminal encroachment or central canal stenosis. L5-S1: There is a central and left lateral disc protrusion. This may impinge on the S1 nerve root on the left. There is narrowing of the left neural foramen. The right neural foramen is patent. There is no significant central canal stenosis. IMPRESSION: Central and left lateral disc protrusion at the L5-S1 level which may impinge on the S1 nerve root on the left with narrowing of the left neural foramen. Finalized by Rachel Bartholomew DO on 08/21/2024 10:15 AM Normal [facility] No Panel Informationon 06-11 Bedside Glucose 93 [facility] Glucose Glucometer (BldC) [M ass/Vol]on 02-28-2024 Glucose [Mass/Vol] 123 mg/dL High 65-99 [facility] No Panel Informationon 02-26 Bedside Glucose 216 [facility] Ambulatory Visit Summaryon 0 02-24-2024 Ambulatory Visit Summary NATHALIA PATINO :1975 Visit Date:02/24/2024 Ambulatory Visit Instructions Your Diagnosis History of kidney stones Glucosuria Tests Performed XR Abdomen 1 View -- Results Pending -- Please visit your patient portal for your results or contact your primary care physician. Your Care Team Attending Physician - CAREN LARSEN, Kang Denton Primary Care Physician - TRISTON JAMES MD This Is Your Medications List Contact prescribing physician if questions or concerns Misc Prescription ([employer] ALLERGY(CETRZN) 10 MG SFGL) acarbose (acarbose 25 mg oral tablet) carisoprodol esomeprazole (Nexium) ethinyl estradiol-norethindrone (Pirmella 1/35 oral tablet) ferrous sulfate gabapentin ibuprofen insulin glargine (Semglee (Prefilled Pen) 100 units/mL subcutaneous solution) loperamide (loperamide 2 mg Cap) meloxicam (meloxicam 15 mg Tab) milnacipran (Savella) montelukast (Singulair 10 mg Tab) pioglitazone (pioglitazone 15 mg Tab) propranolol semaglutide (Ozempic 2 mg/3 mL (0.25 mg or 0.5 mg dose) subcutaneous solution) trazodone Procedures Performed Cystoscopy (04/13/2020), ESWL - Extracorporeal shockwave lithotripsy for renal calculus (04/13/2020), Cystoscopy and retrograde pyelography (03/30/2020), ESWL - Extracorporeal shockwave lithotripsy for renal calculus (03/30/2020), Cystoscopy (05/01/2019), ESWL - Extracorporeal shockwave lithotripsy for renal calculus (05/01/2019), Stent placement (05/01/2019), Cystoscopy (03/18/2019), cysto lt retrograde lt ureteroscopy laser holmium lt stent. (05/15/2017), Ventral hernia (1997), section (1996), Tonsillectomy (1990), Lithotripsy, Ureteroscopy. Discharge Vitals Temperature (Temporal Artery) 37 ?C Heart Rate (Peripheral) 76 Respiratory Rate 16 Blood Pressure 137/83 Height 152 cm Height 60 in Weight 68 kg Weight 149.6 lb BMI 29.43 What to do next Scheduled Follow-Up Appointments Saturday. 2024 8:15 AM EDT With: CAREN LARSEN, Kang Denton Where: [facility] Patient Educationon 02-24-20 Patient Education Nephrology Dietary Guidelines to Help Prevent Kidney Stones Kidney stones are deposits of minerals and salts that form inside your kidneys. Your risk of developing kidney stones may be greater depending on your diet, your lifestyle, the medicines you take, and whether you have certain medical conditions. Most people can lower their risks of developing kidney stones by following these dietary guidelines. Your dietitian may give you more specific instructions depending on your overall health and the type of kidney stones you tend to develop. What are tips for following this plan? Reading food labels ? Choose foods with no salt added or low-salt labels. Limit your salt (sodium) intake to less than 1,500 mg a day. ? Choose foods with calcium for each meal and snack. Try to eat about 300 mg of calcium at each meal. Foods that contain 200?500 mg of calcium a serving include: ? 8 oz (237 mL) of milk, mzhbssm-ysdpotglpyjq-yx iry milk, and calcium-fortifiedfruit juice. Calcium-fortified means that calcium has been added to these drinks. ? 8 oz (237 mL) of kefir, yogurt, and soy yogurt. ? 4 oz (114 g) of tofu. ? 1 oz (28 g) of cheese. ? 1 cup (150 g) of dried figs. ? 1 cup (91 g) of cooked broccoli. ? One 3 oz (85 g) can of sardines or mackerel. Most people need 1,000?1,500 mg of calcium a day. Talk to your dietitian about how much calcium is recommended for you. Shopping ? Buy plenty of fresh fruits and vegetables. Most people do not need to avoid fruits and vegetables, even if these foods contain nutrients that may contribute to kidney stones. ? When shopping for convenience foods, choose: ? Whole pieces of fruit. ? Pre-made salads with dressing on the side. ? Low-fat fruit and yogurt smoothies. ? Avoid buying frozen meals or prepared deli foods. These can be high in sodium. ? Look for foods with live cultures, such as yogurt and kefir. ? Choose high-fiber grains, such as whole-wheat breads, oat bran, and wheat cereals. Cooking ? Do not add salt to food when cooking. Place a salt shaker on the table and allow each person to add their own salt to taste. ? Use vegetable protein, such as beans, textured vegetable protein (TVP), or tofu, instead of meat in pasta, casseroles, and soups. Meal planning ? Eat less salt, if told by your dietitian. To do this: ? Avoid eating processed or pre-made food. ? Avoid eating fast food. ? Eat less animal protein, including cheese, meat, poultry, or fish, if told by your dietitian. To do this: ? Limit the number of times you have meat, poultry, fish, or cheese each week. Eat a diet free of meat at least 2 days a week. ? Eat only one serving each day of meat, poultry, fish, or seafood. ? When you prepare animal proteins, cut pieces into small portion sizes. For most meat and fish, one serving is about the size of the palm of your hand. ? Eat at least five servings of fresh fruits and vegetables each day. To do this: ? Keep fruits and vegetables on hand for snacks. ? Eat one piece of fruit or a handful of berries with breakfast. ? Have a salad and fruit at lunch. ? Have two kinds of vegetables at dinner. ? You may be told to limit foods that are high in a substance called oxalate. These include: ? Spinach (cooked), rhubarb, beets, sweet potatoes, and Filipino chard. ? Peanuts. ? Potato chips, belarusian fries, and baked potatoes with skin on. ? Nuts and nut products. ? Chocolate. ? If you regularly take a diuretic medicine, make sure to eat at least 1 or 2 servings of fruits or vegetables that are high in potassium each day. These include: ? Avocado. ? Banana. ? Eldred, prune, carrot, or tomato juice. ? Baked potato. ? Cabbage. ? Beans and split peas. Lifestyle ? Drink enough fluid to keep your urine pale yellow. This is the most important thing you can do. Spread your fluid intake throughout the day. ? If you drink alcohol: ? Limit how much you have to: ? 0?1 drink a day for women who are not . ? 0?2 drinks a day for men. ? Know how much alcohol is in your drink. In the [place] one drink equals one 12 oz bottle of beer (355 mL), one 5 oz glass of wine (148 mL), or one 1? oz glass of hard liquor (44 mL). ? Lose weight if told by your health care provider. Work with your dietitian to find an eating plan and weight loss strategies that work best for you. General information ? Talk to your health care provider and dietitian about taking daily supplements. Depending on your health and the cause of your kidney stones, you may be told: ? Do not take high-dose supplements of vitamin C (1,000 mg a day or more). ? To take a calcium supplement. ? To take a daily probiotic supplement. ? To take other supplements such as magnesium, fish oil, or vitamin B6. ? Take uydg-ate-thnvdvw and prescription medicines only as told by your health care provider. These include supplements. What foods sh (more content not included)... Normal [facility] Urology Office/Clinic Noteon 02-24-2024 Urology Office/Clinic Note Chief Complaint Pt is here for 1 yr w/ KUB HPI Staff RWR pt. 1 year follow up w/KUB-02/13/24-[facility] [place] Previous KUB done 05/15/22-[facility] [place] Previous CT SCAN 06/03/19-[facility] [place], no current CT SCAN, no current or previous DORON Previous metabolic workup was 04/25/2020-[facility] Previous DX: HX of kidney stone, asymptomatic microscopic hematuria, ureteral stone. *HCTZ 25mg qd. S/P ESWL done 04/13/2020, ESWL 03/30/2020, ESWL 05/01/19. Dysuria: denies Incomplete bladder emptying: denies Hematuria: denies Frequency: yes pt is on a diuretic Urgency: denies Nocturia: denies Stream: steady stream Leaking: denies Post void dripping: denies Wearing pads/ Depends: denies Urge incontinence: denies Stress incontinence: yes mild Incontinence without Sensory Awareness: denies Abdominal pain: denies Flank pain: denies Sexual complaints: _ History of Present Illness Tests reviewed: reviewed UA and KUB. I have reviewed the previous health record information and history for this patient from Dr. May. I have reviewed and verified the staff HPI to be accurate for this encounter. There have been no associated fever, chills, flank pain, or blood in the urine. Denies any urinary infections since last encounter. Review of Systems PHQ Score Initial Depression Screen Score: 0 SCORE ROS - Provider Constitutional: denies weight loss, denies hot flashes. Eyes: denies eye problems. Gastrointestinal: denies nausea, denies vomiting. Cardiovascular: denies chest pain or angina. Integumentary: no dryness Musculoskeletal: denies musculoskeletal symptoms. ENMT: denies otolaryngeal symptoms. Respiratory: no shortness of breath. Heme/Lymph: denies easy bleeding tendency, denies easy bruising tendency. Psychiatric: no confusion, no anxiety. Genitourinary: See HPI. Physical Exam Vitals & Measurements T: 37 ?C(Temporal Artery) HR: 76(Peripheral) RR: 16 BP: 137/83 HT: 60 in HT: 152 cm WT: 68 kg WT: 149.6 lb BMI: 29.43 General Appearance: alert , no acute distress, well nourished, well developed female. Assessment/Plan Former RWR pt. Portions of this record may have been created with voice recognition artificial intelligence software, specifically [employer] and or [employer]. Substitutions may have occurred due to the inherent limitations of voice recognition and artificial intelligence software. 1. History of kidney stones (Z87.442: Personal history of urinary calculi) Hx of multiple ESWLs. Last procedure 2019. Reports she had a stone approx 17 mm. KUB 05/15/22 [facility] - Neg for stones. KUB 02/12/23 [facility] - Neg for stones. KUB 02/13/24 [facility] - Neg for stones. Taking HCTZ 25 mg qd. Pt to call for refills. Taking B6. Reports she has an elevated Vitamin D level. Has seen a provider at the [facility]. Explained to pt that KUB can miss punctate stones. UA today neg for microscopic hematuria. pH 6.0. Denies gross hematuria. Denies pain. Denies passage of stones since last visit. Pt to continue adequate water intake to avoid stone prevention. -Cont HCTZ 25mg qd -90oz of water per day, add lemon -Follow up in 1 year w/ KUB 2. Glucosuria (R81: Glycosuria) UA today neg. Diabetic. Reports she has her Overall the patient is happy to hear that the KUB is negative. As noted she is continuing on the hydrochlorothiazide and I did recommend lemonade as well which does contain a lot of citrate which is a stone inhibitor. KUB next year with a repeat visit. She agrees with the plan Follow-up With When Contact Information CAREN LARSEN, Kang Denton, URL [address] [address]- Additional Instructions: 1 year w/ KUB Patient Education Dietary Guidelines to Help Prevent Kidney Stones I, Rain George, personally scribed for Dr. Blanco on 02/24/2024 08:19:45. . Documentation recorded by the scribe, Rain George, accurately reflects the services(s) I performed and decisions made by me. Authenticated by Dr. Blanco on 02/24/2024 08:21:33. Problem List/Past Medical History Ongoing Adult BMI 29.0-29.9 kg/sq m Glucosuria History of kidney stones Historical Asymptomatic microscopic hematuria Costochondritis Diabetes mellitus Fibromyalgia Kidney stone Ureteral stone Procedure/Surgical History Cystoscopy (04/13/2020), ESWL - Extracorporeal shockwave lithotripsy for renal calculus (04/13/2020), Cystoscopy and retrograde pyelography (03/30/2020), ESWL - Extracorporeal shockwave lithotripsy for renal calculus (03/30/2020), Cystoscopy (05/01/2019), ESWL - Extracorporeal shockwave lithotripsy for renal calculus (05/01/2019), Stent placement (05/01/2019), Cystoscopy (03/18/2019), cysto lt retrograde lt ureteroscopy laser holmium lt stent. (05/15/2017), Ventral hernia (1997), section (1996), Tonsillectomy (1990), Lithotripsy, Ureteroscopy. Medications acarbose 25 mg oral table (more content not included)... Normal [facility] Comment on above: Result Comment: Elec tronically Signed By: Kang BLANCO MD\.br\Date and Time Signed: 02/24/24 08:22 EDT\.br\Electronically Co-Signed By: Rain George\.br\Date and Time Co-Signed: 02/24/24 08:19 EDT C peptide [Mass/Vol]on 02-13 C PEPTIDE 2.4 ng/mL Normal 1.1-4.4 [facility] Comment on above: Result Comment: NOTE Test Performed By: [facility] [address] [place] [address] Roaster Supervisor: Donnie De Los Santos III, M.D. CLIA #[id number] Performed By: #### Nancy BELL, 12578-5 #### [facility] ([id number]) [address] [facility] [address], [address] [place] [address] #### 1987-9 #### [facility] ([id number]) [address] [place] [address] [address] [facility] 02-14-2024 Albumin [Mass/Vol] 3.9 g/dL Normal 3.2-5.3 [facility] Comment on above: Performed By: #### Nancy BELL, 23293-2 #### [facility] ([id number]) [address] [facility] [address], [address] [place] [address] #### 1987-9 #### [facility] ([id number]) [address] [place] [address] ALP [Catalytic activity/Vol] 58 U/L Normal 39-130 [facility] Comment on above: Performed By: #### Nancy BELL, 71730-9 #### [facility] ([id number]) [address] [facility], [facility] [address] [place] [address] #### 1987-9 #### [facility] ([id number]) [address] [place] [address] ALT [Catalytic activity/Vol] 30 U/L Normal 0-31 [facility] Comment on above: Performed By: #### Nancy BELL, 13610-9 #### [facility] ([id number]) [address] [facility] [address] [place] [address] #### 1987-9 #### [facility] ([id number]) [address] [place] [address] Anion gap [Moles/Vol] 9 mmol/L Normal 5-15 [facility] Comment on above: Performed By: #### Nancy BELL, 03724-5 #### [facility] ([id number]) [address] [facility], [address] [place] [address] #### 1987-9 #### [facility] ([id number]) [address] [place] [address]81 AST [Catalytic activity/Vol] 32 U/L Normal 0-41 [facility] Comment on above: Performed By: #### Nancy BELL, 23538-5 #### [facility] ([id number]) [address] [facility] [address], [address] [place] [address] #### 9 #### [facility] ([id number]) [address] [place] [address] Bilirubin [Mass/Vol] 0.3 mg/dL Normal 0.3-1.2 [facility] Comment on above: Performed By: #### Nancy BELL, 17026-8 #### [facility] ([id number]) [address] [place] [address], [address] [place] [address] #### 9 #### [facility] ([id number]) [address] [place] [address] Calcium [Mass/Vol] 9.0 mg/dL Normal 8.5-10.5 [facility] Comment on above: Performed By: #### Nancy BELL, 62026-4 #### [facility] ([id number]) [address] [place] [address], [address] [place] [address] #### 1988-06 #### [facility] ([id number]) [address] [place] [address] Chloride [Moles/Vol] 101 mmol/L Normal 98-109 [facility] Comment on above: Performed By: #### Nancy BELL, 53278-1 #### [facility] ([id number]) [facility], [address] [place] [address] #### 1988-06 #### [facility] ([id number]) [address] [place] [address] CO2 [Moles/Vol] 28 mmol/L Normal 22-32 [facility] Comment on above: Performed By: #### Nancy BELL, 56910-9 #### [facility] ([id number]) [address] [facility], [address] [place] [address] #### 1987-9 #### [facility] ([id number]) [address] [place] [address] Creatinine [Mass/Vol] 0.94 mg/dL Normal 0.40-1.00 [facility] Comment on above: Result Comment: METH OD TRACEABLE TO IDMS STANDARD Performed By: #### Nancy BELL, 69194-0 #### [facility] ([id number]) [address] [facility], [address] [address] #### 9 #### [facility] ([id number]) [address] [place] [address] GFR/1.73 sq M.predicted among non-blacks MDRD (S/P/Bld) [Vol rate/Area] 74 mL/min/{1.73_m2} Normal >59 [facility] Comment on above: Result Comment: Reported eGFR is based on the CKD-EPI 2020 equation that does not use a race coefficient. Performed By: #### Nancy BELL, 29991-4 #### [facility] ([id number]) [address] [facility], [address] [place] [address] #### 1987-9 #### [facility] ([id number]) [address] [place] [address] Glucose [Mass/Vol] 136 mg/dL High 65-99 [facility] Comment on above: Performed By: #### Nancy BELL, 54824-7 #### [facility] ([id number]) [address] [facility], [address] [place] [address] #### 9 #### [facility] ([id number]) [address] [place] [address] Potassium [Moles/Vol] 4.2 mmol/L Normal 3.5-5.0 [facility] Comment on above: Performed By: #### Nancy BELL, 59531-9 #### [facility] ([id number]) [address] [facility], [address] [place] [address] #### 1988-06 #### [facility] ([id number]) [address] [place] [address] Protein [Mass/Vol] 6.7 g/dL Normal 6.0-8.0 [facility] Comment on above: Performed By: #### Nancy BELL, 23515-1 #### [facility] ([id number]) [address] [facility] [facility], [address] [place] [address] #### 9 #### [facility] ([id number]) [address] [place] [address] Sodium [Moles/Vol] 138 mmol/L Normal 134-146 [facility] Comment on above: Performed By: #### Nancy BELL, 38645-0 #### [facility] ([id number]) [address] [facility], [address] [place] [address] #### 1988-06 #### [facility] ([id number]) [address] [place] [address] Urea nitrogen [Mass/Vol] 17 mg/dL Normal 5-23 [facility] Comment on above: Performed By: #### Nancy BELL, 22774-2 #### [facility] ([id number]) [address] [facility], [address] [place] [address] #### 1988-06 #### [facility] ([id number]) [address] [place] [address], [place] [address] Laboratory - Chemistry and C hemistry - challengeon 02-14-2024 Cholesterol [Mass/Vol] 170 mg/dL [facility] Cholesterol in HDL [Mass/Vol] 44 mg/dL [facility] Cholesterol in LDL [Mass/Vol] 88 mg/dL [facility] Cholesterol.total/Ch olesterol in HDL [Mass ratio] 3.9 {ratio} [facility] Triglyceride [Mass/Vol] 189 mg/dL [facility] Albumin [Mass/Vol] 3.9 g/dL [facility] ALP [Catalytic activity/Vol] 58 U/L [facility] ALT [Catalytic activity/Vol] 30 U/L [facility] AST [Catalytic activity/Vol] 32 U/L [facility] Bilirubin [Mass/Vol] 0.3 mg/dL [facility] Calcium [Mass/Vol] 9.0 mg/dL [facility] Chloride [Moles/Vol] 101 mmol/L [facility] CO2 [Moles/Vol] 28 mmol/L [facility] Creatinine [Mass/Vol] 0.94 mg/dL [facility] Glucose [Mass/Vol] 136 mg/dL [facility] Potassium [Moles/Vol] 4.2 mmol/L [facility] Protein [Mass/Vol] 6.7 g/dL [facility] Sodium [Moles/Vol] 138 mmol/L [facility] Urea nitrogen [Mass/Vol] 17 mg/dL [facility] Creatinine (U) [Mass/Vol] 155.39 mg/dL [facility] Lipid 1995 panelon Cholesterol [Mass/Vol] 170 mg/dL Normal 150-200 [facility] Comment on above: Performed By: #### C ARABELLA, 50241-9 #### [facility] ([id number]) [address] [facility] [address] [facility], [address] [place] [address] #### 1986-9 #### [facility] ([id number]) [address] [place] [address] Cholesterol in HDL [Mass/Vol] 44 mg/dL Normal >39 [facility] Comment on above: Result Comment: HDL <40 mg/dL - High Risk HDL > or = 40mg/dL- Desirable HDL >60 mg/dL - Negative Risk Performed By: #### Nancy BELL, 25025-7 #### [facility] ([id number]) [address] [facility], [address] [place] [address] #### 1986-9 #### [facility] ([id number]) [address] [place] [address] Cholesterol in LDL [Mass/Vol] 88 mg/dL Normal <130 [facility] Comment on above: Result Comment: LDL <100 mg/dL - Desirable LDL >160 mg/dL - High Risk Performed By: #### Nancy BELL, 96022-6 #### [facility] ([id number]) [address] [facility], [address] [place] [address] #### 1988-9 #### [facility] ([id number]) [address] [place] [address] Cholesterol in VLDL [Mass/Vol] 38 mg/dL High 0-30 [facility] Comment on above: Performed By: #### Nancy BELL, 42007-1 #### [facility] ([id number]) [address] [facility], [address] [place] [address] #### 1986-9 #### [facility] ([id number]) [address] [place] [address] CHOLESTEROL:HDL 3.9 Normal 1.0-5.0 [facility] Comment on above: Performed By: #### C ARABELLA, 30532-6 #### [facility] ([id number]) [address] [facility], [address] [place] [address] #### 1988-9 #### [facility] ([id number]) [address] [place] [address] Triglyceride [Mass/Vol] 189 mg/dL High 27-150 [facility] Comment on above: Performed By: #### Nancy BELL, 33549-4 #### [facility] ([id number]) [address] [place] [address], [address] [address] #### 1986-9 #### [facility] ([id number]) [address] [place] [address] MICROALBUMIN - ALBUMIN:CREAT ININE URINE RATIOon 02-14-2024 ALB/CREAT RATIO 5.1 mg/g creat Normal 0.0-30.0 [facility] Comment on above: Performed By: #### M ALBU #### [facility] ([id number]) [address] [place] [address], [address] [place] [address] Albumin DL <= 20 mg/L (U) [Mass/Vol] 0.8 mg/dL Normal 0.0-1.9 [facility] Comment on above: Performed By: #### M ALBU #### [facility] ([id number]) [address] [facility], [address] [place] [address] URINE CREAT 155.39 mg/dL Normal [facility] Comment on above: Performed By: #### M ALBU #### [facility] ([id number]) [address] [facility], [address] [place] [address] No Panel Informationon 02-13 VLDL Cholesterol 38 mg/dL [facility] Estimated GFR (Non- 74 mL/min [facility] C-Peptide 2.4 [facility] Urine Microalbumin mg/dl 0.8 [facility] Urine Microalbumin/Creatin ine Ratio 5.1 [facility] RAD - MISCon 02-14-2024 RAD MISC [id number] IFF Normal [facility] XR KUBon 02-13-2024 XR KUB [facility] [address] [place] [id number] XRay Report Signed Patient: Nathalia Patino MR#: [id number] [birth year] : 1975 Acct:[id number] Age/Sex: 48 / F ADM Date: 02/13/24 Loc: ICXD Room: Type: [facility] Attending Dr: Kang Blanco MD Copies to: Kang Blanco MD Ordering Provider: Kang Blanco MD Date of Service: 02/13/24 XR/XR KUB: KIDNEY STONES KUB: CLINICAL INFORMATION: Renal stone follow-up COMPARISON: KUB 02/12/2023 FINDINGS: No suspicious urinary tract calculus is noted. No bowel obstruction or free air. XR/XR KUB IMPRESSION: No acute process. Impression dictated by: Orestes Gray Jr., D.O.02/13/2024 4:22 PM Dictation Location: [facility]- Transcribed By: [facility] 02/13/24 1622 Dictated By: Orestes Gray Jr, DO 02/13/24 1621 Signed By: 02/13/24 1622 Normal [facility] No Panel Informationon 02-11 Bedside Glucose 274 [facility] Glucose Glucometer (BldC) [M ass/Vol]on 01-31-2024 Glucose [Mass/Vol] 154 mg/dL High 65-99 [facility] COMPREHENSIVE METABOLIC PANE Daniel 01-22-2024 Albumin [Mass/Vol] 3.8 g/dL Normal 3.2-5.3 [facility] Comment on above: Performed By: #### C , 08876-6 #### [facility] ([id number]) [address], [address] [place] [address] ALP [Catalytic activity/Vol] 57 U/L Normal 39-130 [facility] Comment on above: Performed By: #### Nancy BELL, 16759-6 #### [facility] ([id number]) [address], [address] [place] [address] ALT [Catalytic activity/Vol] 25 U/L Normal 0-31 [facility] Comment on above: Performed By: #### Nancy BELL, 57989-8 #### [facility] ([id number]) [address], [address] [place] [address] Anion gap [Moles/Vol] 7 mmol/L Normal 5-15 [facility] Comment on above: Performed By: #### Nancy BELL, 03554-0 #### [facility] ([id number]) [address], [address] [place] [address] AST [Catalytic activity/Vol] 24 U/L Normal 0-41 [facility] Comment on above: Performed By: #### Nancy BELL, 63223-2 #### [facility] ([id number]) [address], [address] [place] [address] Bilirubin [Mass/Vol] 0.2 mg/dL Low 0.3-1.2 [facility] Comment on above: Performed By: #### Nancy BELL, 16668-9 #### [facility] ([id number]) [address], [address] [place] [address] Calcium [Mass/Vol] 9.2 mg/dL Normal 8.5-10.5 [facility] Comment on above: Performed By: #### Nancy BELL, 84155-6 #### [facility] ([id number]) [address], [address] [place] [address] Chloride [Moles/Vol] 97 mmol/L Low 98-109 [facility] Comment on above: Performed By: #### Nancy BELL, 62195-1 #### [facility] ([id number]) [address], [address] [place] [address] CO2 [Moles/Vol] 31 mmol/L Normal 22-32 [facility] Comment on above: Performed By: #### Nancy BELL, 23612-5 #### [facility] ([id number]) [address], [address] [place] [address] Creatinine [Mass/Vol] 0.90 mg/dL Normal 0.40-1.00 [facility] Comment on above: Result Comment: METH OD TRACEABLE TO IDMS STANDARD Performed By: #### Nancy BELL, 69073-7 #### [facility] ([id number]) [address], [facility] [address] [place] [address] GFR/1.73 sq M.predicted among non-blacks MDRD (S/P/Bld) [Vol rate/Area] 78 mL/min/{1.73_m2} Normal >59 [facility] Comment on above: Result Comment: Reported eGFR is based on the CKD-EPI 2020 equation that does not use a race coefficient. Performed By: #### Nancy BELL, 41263-0 #### [facility] ([id number]) [address], [address] [place] [address] Glucose [Mass/Vol] 152 mg/dL High 65-99 [facility] Comment on above: Performed By: #### Nancy BELL, 58406-4 #### [facility] ([id number]) [address] [address] [place] [address] Potassium [Moles/Vol] 3.8 mmol/L Normal 3.5-5.0 [facility] Comment on above: Performed By: #### Nancy BELL, 90584-9 #### [facility] ([id number]) [address], [address] [place] [address] Protein [Mass/Vol] 6.9 g/dL Normal 6.0-8.0 [facility] Comment on above: Performed By: #### Nancy BELL, 29063-3 #### [facility] ([id number]) [address], [address] [place] [address] Sodium [Moles/Vol] 135 mmol/L Normal 134-146 [facility] Comment on above: Performed By: #### Nancy BELL, 81578-2 #### [facility] ([id number]) [address], [address] [place] [address] Urea nitrogen [Mass/Vol] 21 mg/dL Normal 5-23 [facility] Comment on above: Performed By: #### Nancy BELL, 31490-3 #### [facility] ([id number]) [address], [address] [place] [address] Vitamin D+Metabolites [Mass/ Vol]on 01-22-2024 VITAMIN D 25 HYD TOT >120.0 High 30-100 [facility] Comment on above: Result Comment: Vitamin D status 25 [place] Vitamin D Deficiency <20 ng/mL Insufficiency 20-29 ng/mL Sufficiency 30-100 ng/mL Toxicity >100 ng/mL NOTE: A pediatric reference range has not been established by the microbiology manager of this kit. The [place] [employer] recommends a Vitamin D level of = or >20ng/mL in infants and children. 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 COMPARISON: 11/21/2022 TECHNIQUE: Bilateral digital tomosynthesis MLO and CC views of the breasts were obtained, with creation of synthetic 2D views. Computer aided detection was utilized. FINDINGS: There are scattered areas of fibroglandular density. There are no suspicious masses, calcifications, or areas of architectural distortions. Benign scattered calcifications IMPRESSION: Benign findings BI-RADS: BI-RADS 2 - Benign Recommendation: Routine screening mammogram in 1 year. Finalized by Pasha Thibodeaux MD on 11/26/2023 8:30 AM 2 b MAMM 1 YR Normal [facility] DEXA SCAN CENTRAL SKELETALon 11-25-2023 DEXA SCAN CENTRAL SKELETAL DEXA SCAN CENTRAL SKELETAL CLINICAL INFORMATION: Postmenopausal. Osteopenia. TECHNIQUE: Dual X-ray Absorptiometry (DXA) was performed. COMPARISON: No relevant prior studies available. FINDINGS: LUMBAR SPINE (L1-L4): BMD is 1.322 gm/cm2. T-score is 1.0. LEFT FEMORAL NECK: BMD is 1.187 gm/cm2. T-score is 1.1. LEFT TOTAL FEMUR: BMD is 1.183 gm/cm2. T-score is 1.4. RIGHT FEMORAL NECK: BMD is 1.232 gm/cm2. T-score is 1.4. RIGHT TOTAL FEMUR: BMD is 1.177 gm/cm2. T-score is 1.3. The estimated 10-year probability for a major osteoporotic fracture (utilizing FRAX) is 7.5% and for a hip fracture is 0.0%. IMPRESSION: Normal (based on WHO criteria). WHO CLASSIFICATION: Normal: T-score -1.0 or above Osteopenia: T-score -1.1 to < 2.5 Osteoporosis: T-score -2.5 or lower Secondary causes of bone loss should be evaluated if clinically indicated since the etiology of low BMD cannot be determined by BMD measurement alone. Finalized by Malcolm Rodriguez on 11/25/2023 3:28 PM Normal [facility] CNPAmanda 01-03-2023 CNPN Telephone (ENDOMN) JANIYA PATINOEE Kassandra ([id number]) 1975 F Date Time Provider Department 01/03/23 RUTH APODACA During your visit today, we recorded the following information about you: Alin Paniagua MA 01/03/2023 11:30 AM Signed Spoke to Nathalia Patino, confirmed patient is registered on [employer] and is prepared for their appointment. Confirmed the patient has updated medications, allergies, and questionnaires via [employer]. Informed patient if there is an issue with the connection, provider will send the patient a secure link. If provider is running late, patient should remain connected to the visit. Patient verbalized understanding. Patient will not submit blood sugar readings through her mychart. The patient will provide her readings verbally with the provider. Alin Paniagua MA Allergies As of Date: 01/03/2023 Noted Allergy Reaction CAT DANDER 09/27/2020 14 - Other: See Comments Comments: Other reaction(s): Mild DAYPRO (OXAPROZIN) 11/30/2019 4 - Hives SULFAMETHOXAZOLE-TRIMET HOPRIM 11/30/2019 3 - Cough 4 - Hives DOXYCYCLINE 09/27/2020 2 - Rash Date Reviewed: 12/01/2019 Reviewed by: Kameron (Ct) MARYANNE Bell - Fully Assessed Reason for Visit: Prep for virtual visit [Other] Prescriptions as of 01/03/2023 - empagliflozin (JARDIANCE) 10 mg tablet Take 1 tablet by mouth daily with breakfast. - insulin glargine-yfgn (SEMGLEE,INSULIN GLARG-YFGN,PEN) 100 unit/mL (3 mL) insulin pen Inject 30 unit(s) each evening before bed - pioglitazone (ACTOS) 15 mg tablet Take 1 tablet by mouth once daily. - insulin needles, DISPOSABLE, (PEN NEEDLE) 31 gauge x 5/16 use one daily with insulin injection - pen needle, diabetic (COMFORT EZ PEN NEEDLES) 32 gauge x 3/16 ndle use one daily with insulin pen - blood sugar diagnostic (ONETOUCH ULTRA TEST) test strip Use as instructed to test blood sugars three times daily - amoxicillin (POLYMOX, AMOXIL) 500 mg capsule Take 500 mg by mouth twice daily. - carisoprodol (SOMA) 350 mg tablet Take 350 mg by mouth once daily. - Cetirizine (ZYRTEC) 10 mg cap Take 10 mg by mouth once daily. - esomeprazole (NEXIUM) 40 mg capsule Take 40 mg by mouth once daily. - gabapentin (NEURONTIN) 300 mg capsule Take 600 mg by mouth once daily. - ibuprofen (MOTRIN) 800 mg tablet Take 800 mg by mouth three times daily as needed. - lidocaine (XYLOCAINE) 5 % ointment Apply 1 application to affected area at bedtime as needed. - loperamide (IMODIUM) 2 mg cap(s) Take 2 mg by mouth as needed. - Milnacipran (SAVELLA) 100 mg tab Take 100 mg by mouth once daily. - montelukast (SINGULAIR) 10 mg tablet Take 10 mg by mouth once daily. - Norethindrone-Eth Estradiol 1-35 mg-mcg per tablet Take 1 tablet by mouth once daily. - propranolol ER (INDERAL LA) 160 mg Cs24 Take 160 mg by mouth once daily. - traZODone (DESYREL) 150 mg tablet Take 150 mg by mouth daily at bedtime. - triamcinolone acetonide (KENALOG) 0.5 % cream Apply 1 application to affected area as needed. Problem List As Of Date 01/03/2023 Noted Resolved Diabetes mellitus treated with oral medication *12/01/2019 Calcium oxalate stones [N20.0] 12/01/2019 Takes dietary supplements [Z78.9] 12/01/2019 High serum vitamin D [R79.89] 12/01/2019 Uncontrolled type 2 diabetes mellitus with hype*08/18/2021 Encounter Status:Closed by ALIN PANIAGUA on 01/03/23 Normal [facility] PAP ACOG PANEL 2: 30 to 65on 10-24-2022 . . Normal [facility] Comment on above: Result Comment: Perf ormed at: WB Performed By: #### [id number] #### [facility] [address] [place] [address] Dr. Debbie Ahmadi Age Gdln ACOG Testing 30-65 Normal [facility] Comment on above: Performed By: #### [id number] #### [facility] [address] [address] [address] Debbie Ahmadi DIAGNOSIS: Comment Abnormal [facility] Comment on above: Result Comment: EPIT HELIAL CELL ABNORMALITY. ATYPICAL SQUAMOUS CELLS OF UNDETERMINED SIGNIFICANCE (ASC-US). Performed at: WB Performed By: #### [id number] #### [facility] [address] [address] [address] Debbie Ahmadi Electronically signed by: Comment Normal [facility] Comment on above: Result Comment: Mary Silvestre MD, Pathologist Performed at: WB Performed By: #### [id number] #### [facility] [address] [address] [address] Debbie Ahmadi HPV Aptima Negative Normal Negative [facility] Comment on above: Result Comment: This nucleic acid amplification test detects fourteen high-risk HPV types (16,18,31,33,35,39,45,51,52,56,58,59,66,68) without differentiation. Performed at: =G Performed By: #### [id number] #### [facility] [address] [address] [address] Debbie Ahmadi HPV Genotype Reflex Comment Normal [facility] Comment on above: Result Comment: Crit eria not met, HPV Genotype not performed. Performed at: WB Performed By: #### 4 [id number] #### [facility] [address] [address] [address] Debbie Ahmadi Methodology: Comment Normal [facility] Comment on above: Result Comment: This liquid based ThinPrep(R) pap test was screened with the use of an image guided system. Performed at: WB Performed By: #### [id number] #### [facility] [address] [place] [address] Dr. Debibe Ahmadi Note: Comment Normal [facility] Comment on above: Result Comment: The Pap smear is a screening test designed to aid in the detection of premalignant and malignant conditions of the uterine cervix. It is not a diagnostic procedure and should not be used as the sole means of detecting cervical cancer. Both false-positive and false-negative reports do occur. . Performed at: WB Performed By: #### [id number] #### [facility] [address] [address] [address] Debbie Ahmadi Pathologist Provided ICD10 Comment Normal [facility] Comment on above: Result Comment: R87. 610 Performed at: WB Performed By: #### 4 [id number] #### [facility] [address] [address] [address] Debbie Ahmadi Performed by: Comment Normal [facility] Comment on above: Result Comment: Bob Bashir, Movie Shot Cameraman (ASCP) Performed at: WB Performed By: #### [id number] #### [facility] [address] [place] [address] Dr. Debbie Ahmadi Recommendation: Comment Abnormal [facility] Comment on above: Result Comment: Sugg est follow up as clinically appropriate. Performed at: WB Performed By: #### [id number] #### [facility] [address] [place] [address] Dr. Debbie Ahmadi Specimen adequacy: Comment Normal [facility] Comment on above: Result Comment: Sati sfactory for evaluation. Endocervical and/or squamous metaplastic cells (endocervical component) are present. Performed at: WB Performed By: #### [id number] #### [facility] [address] [place] [address] Dr. Debbie Ahmadi CHLAMYDIA/GONOCOCCUS JULIO (SW AB/URINE/PAPon 02-14-2022 Chlamydia trachomatis, JULIO DEVRIES Normal [facility] Comment on above: Result Comment: Test Not Performed. The transport device submitted contained a cleaning swab. On future collections the cleaning swab should be discarded after use; then the specimen should be collected using the smaller collection swab. contacted Rose Marie at your facility on 02-14-2022 Performed at: =G Performed By: #### C T/NGNA #### [facility] [address] [place] [address] Dr. Debbie Ahmadi Neisseria gonorrhoeae, JULIO TNP Normal [facility] Comment on above: Result Comment: Test not performed Performed at: =G Performed By: #### C T/NGNA #### [facility] [address] [place] [address] Dr. Debbie Ahmadi PDF Normal [facility] Comment on above: Result Comment: Perf ormed at: CB Performed By: #### C T/NGNA #### [facility] [address] [place] [address] Dr. Debbie Ahmadi WET PREPon 02-11-2022 CLUE CELLS NONE SEEN Normal NONE SEEN [facility] Comment on above: Performed By: #### W P #### [facility] [address] [address] [address] Debbie Ahmadi FUNGAL ELEMENTS NONE SEEN Normal NONE SEEN [facility] Comment on above: Performed By: #### W P #### [facility] [address] [place] [address] Dr. Debbie Ahmadi RBC -WET PREP NONE SEEN Normal NONE SEEN [facility] Comment on above: Performed By: #### W P #### [facility] [address] [place] [address] Dr. Debbie Ahmadi TRICHOMONAS NONE SEEN Normal NONE SEEN [facility] Comment on above: Performed By: #### W P #### [facility] [address] [place] [address] Dr. Debbie Ahmadi WBC- WET PREP FEW Abnormal NONE SEEN [facility] Comment on above: Performed By: #### W P #### [facility] [address] [address] [address] Debbie Ahmadi WET PREP BACTERIA RARE Abnormal NONE SEEN [facility] Comment on above: Performed By: #### W P #### [facility] [address] [place] [address] Dr. Debbie Ahmadi GLYCOHEMOGLOBIN A1Con 2021 ADA RECOMMENDATION ADA THERAPEUTIC TARG ET 6.0 - 7.0 ACTION SUGGESTED > 7.0 Normal [facility] Comment on above: Performed By: #### A 1C #### [facility] [address] [place] [address] Dr. Debbie Ahmadi Glucose [Mass/Vol] 177 mg/dL Normal [facility] Comment on above: Performed By: #### A 1C #### [facility] [address] [place] [address] Dr. Debbie Ahmadi HbA1c (Bld) [Mass fraction] 7.8 % Critically high <=6.0 [facility] Comment on above: Performed By: #### A 1C #### [facility] [address] [place] [address] Dr. Debbie Ahmadi PROF 14(COMP METB)on 022 Albumin [Mass/Vol] 3.6 g/dL Normal 3.4-5.0 [facility] Comment on above: Performed By: #### C MP #### [facility] [address] [place] [address] Dr. Debbie Ahmadi Albumin/Globulin [Mass ratio] 1.0 {ratio} Normal [facility] Comment on above: Performed By: #### C MP #### [facility] [address] [place] [address] Dr. Debbie Ahmadi ALP [Catalytic activity/Vol] 52 U/L Normal 46-116 [facility] Comment on above: Performed By: #### C MP #### [facility] [address] [place] [address] Dr. Debbie Ahmadi ALT [Catalytic activity/Vol] 33 U/L Normal 14-59 [facility] Comment on above: Performed By: #### C MP #### [facility] [address] [place] [address] Dr. Debbie Ahmadi Anion gap [Moles/Vol] 11.0 mmol/L Normal [facility] Comment on above: Performed By: #### C MP #### [facility] [address] [place] [address] Dr. Debbie Ahmadi AST [Catalytic activity/Vol] 18 U/L Normal 15-37 [facility] Comment on above: Performed By: #### C MP #### [facility] [address] [place] [address] Dr. Debbie Ahmadi Bilirubin [Mass/Vol] 0.2 mg/dL Normal 0.2-1.3 [facility] Comment on above: Performed By: #### C MP #### [facility] [address] [place] [address] Dr. Debbie Ahmadi Calcium [Mass/Vol] 9.0 mg/dL Normal 8.5-10.1 [facility] Comment on above: Performed By: #### C MP #### [facility] [address] [place] [address] Dr. Debbie Ahmadi Chloride [Moles/Vol] 98 mmol/L Normal 98-107 [facility] Comment on above: Performed By: #### C MP #### [facility] [address] [place] [address] Dr. Debbie Ahmadi CO2 [Moles/Vol] 32.6 mmol/L Critically high 22.0-30.0 [facility] Comment on above: Performed By: #### C MP #### [facility] [address] [place] [address] Dr. Debbie Ahmadi Creatinine [Mass/Vol] 0.93 mg/dL Normal 0.52-1.04 [facility] Comment on above: Performed By: #### C MP #### [facility] [address] [place] [address] Dr. Debbie Ahmadi EGFR-AF SUDANESE >60 Normal >=60 [facility] Comment on above: Performed By: #### C MP #### [facility] [address] [place] [address] Dr. Debbie Ahmadi EGFR-NON AF SUDANESE >60 Normal >=60 [facility] Comment on above: Performed By: #### C MP #### [facility] [address] [place] [address] Dr. Debbie Ahmadi Globulin (S) [Mass/Vol] 3.7 g/dL Normal [facility] Comment on above: Performed By: #### C MP #### [facility] [address] [place] [address] Dr. Debbie Ahmadi Glucose [Mass/Vol] 172 mg/dL Critically high 74-106 [facility] Comment on above: Performed By: #### C MP #### [facility] [address] [address] [address] Debbie Ahmadi Potassium [Moles/Vol] 3.6 mmol/L Normal 3.4-5.0 [facility] Comment on above: Performed By: #### C MP #### [facility] [address] [address] [address] Debbie Ahmadi Protein [Mass/Vol] 7.3 g/dL Normal 6.1-8.2 [facility] Comment on above: Performed By: #### C MP #### [facility] [address] [address] [address] Debbie Ahmadi Sodium [Moles/Vol] 138 mmol/L Normal 137-145 [facility] Comment on above: Performed By: #### C MP #### [facility] [address] [address] [address] Debbie Ahmadi Urea nitrogen [Mass/Vol] 20.0 mg/dL Critically high 7.0-18.0 [facility] Comment on above: Performed By: #### C MP #### [facility] [address] [address] [address] Debbie Ahmadi Urea nitrogen/Creatinine [Mass ratio] 21.5 mg/mg Normal [facility] Comment on above: Performed By: #### C MP #### [facility] [address] [address] [address] Debbie Ahmadi Vital Signs Date Time Vital Sign Value Performing Clinician Facility 10-26-2024 08:43-0500 Body mass index (BMI) [Ratio] 29.08 kg/m2 Ma[place]o Work Phone: [facility] 10-26-2024 08:43-0500 Body weight 65.32 kg Maizhuo Work Phone: [facility] 10-26-2024 08:43-0500 Diastolic blood pressure 78 mm[Hg] Maizhuo Work Phone: [facility] 10-26-2024 08:43-0500 Systolic blood pressure 118 mm[Hg] George Nina DO Work Phone: [facility] 09-17-2024 14:58-0500 Body height 149.9 cm Kenneth Nienberg PA Work Phone: [facility] 09-17-2024 14:58-0500 Body mass index (BMI) [Ratio] 29.29 kg/m2 Kenneth Nienberg PA Work Phone: [facility] 09-17-2024 14:58-0500 Body weight 65.77 kg Kenneth Nienberg PA Work Phone: [facility] 09-17-2024 14:58-0500 Diastolic blood pressure 88 mm[Hg] Kenneth Nienberg PA Work Phone: [facility] 09-17-2024 14:58-0500 Heart rate 76 /min Kenneth Nienberg PA Work Phone: [facility] 09-17-2024 14:58-0500 Respiratory rate 18 /min Kenneth Nienberg PA Work Phone: [facility] 09-17-2024 14:58-0500 SaO2% (BldA) [Mass fraction] 100 % Kenneth Nienberg PA Work Phone: [facility] 09-17-2024 14:58-0500 Systolic blood pressure 132 mm[Hg] Kenneth Nienberg PA Work Phone: [facility] 08-25-2024 15:05-0500 Body height 149.9 cm Kenneth Nienberg PA Work Phone: [facility] 08-25-2024 15:05-0500 Body mass index (BMI) [Ratio] 29.49 kg/m2 Kenneth Nienberg PA Work Phone: [facility] 08-25-2024 15:05-0500 Body weight 66.22 kg Kenneth Nienberg PA Work Phone: [facility] 08-25-2024 15:05-0500 Diastolic blood pressure 76 mm[Hg] Kenneth Nienberg PA Work Phone: [facility] 08-25-2024 15:05-0500 Heart rate 80 /min Kenneth Reyes PA Work Phone: [facility] 08-25-2024 15:05-0500 Respiratory rate 18 /min Kenneth Reyes PA Work Phone: [facility] 08-25-2024 15:05-0500 SaO2% (BldA) [Mass fraction] 100 % Kneneth Reyes PA Work Phone: [facility] 08-25-2024 15:05-0500 Systolic blood pressure 126 mm[Hg] Kenneth Reyes PA Work Phone: [facility] 08-11-2024 15:25-0400 Body height 151.13 cm [facility] 08-11-2024 15:25-0400 Body mass index (BMI) [Ratio] 28.5 kg/m2 [facility] 08-11-2024 15:25-0400 Body weight 65.31 kg [facility] 08-11-2024 15:25-0400 Diastolic blood pressure 75 mm[Hg] [facility] 08-11-2024 15:25-0400 Heart rate 83 /min [facility] 08-11-2024 15:25-0400 Systolic blood pressure 122 mm[Hg] [facility] 07-23-2024 13:25-0400 Body mass index (BMI) [Ratio] 29.49 kg/m2 Kenneth Reyes PA Work Phone: [facility] 07-23-2024 13:25-0400 Body weight 66.22 kg Kenneth Reyes PA Work Phone: [facility] 07-23-2024 13:25-0400 Diastolic blood pressure 75 mm[Hg] Kenneth Reyes PA Work Phone: [facility] 07-23-2024 13:25-0400 Heart rate 73 /min Kenneth Reyes PA Work Phone: [facility] 07-23-2024 13:25-0400 Respiratory rate 16 /min Kenneth ONEILL Work Phone: [facility] 07-23-2024 13:25-0400 SaO2% (BldA) [Mass fraction] 100 % Kenneth ONEILL Work Phone: [facility] 07-23-2024 13:25-0400 Systolic blood pressure 121 mm[Hg] Kenneth ONEILL Work Phone: [facility] 06-11-2024 15:31-0400 Body height 151.13 cm [facility] 06-11-2024 15:31-0400 Body mass index (BMI) [Ratio] 29.4 kg/m2 [facility] 06-11-2024 15:31-0400 Body weight 67.18 kg [facility] 06-11-2024 15:31-0400 Diastolic blood pressure 80 mm[Hg] [facility] 06-11-2024 15:31-0400 Heart rate 76 /min [facility] 06-11-2024 15:31-0400 Respiratory rate 18 /min [facility] 06-11-2024 15:31-0400 SaO2% (BldA) [Mass fraction] 99 % [facility] 06-11-2024 15:31-0400 Systolic blood pressure 122 mm[Hg] [facility] 02-27-2024 16:14-0400 Body height 151.13 cm MD Triston James Work Phone: [facility] 02-27-2024 16:14-0400 Body mass index (BMI) [Ratio] 34 kg/m2 MD Triston James Work Phone: [facility] 02-27-2024 16:14-0400 Body weight 77.56 kg MD Triston James Work Phone: [facility] 02-27-2024 16:14-0400 Diastolic blood pressure 87 mm[Hg] MD Triston James Work Phone: [facility] 02-27-2024 16:14-0400 Heart rate 84 /min MD Triston James Work Phone: [facility] 02-27-2024 16:14-0400 Respiratory rate 18 /min MD Triston James Work Phone: [facility] 02-27-2024 16:14-0400 SaO2% (BldA) [Mass fraction] 97 % MD Triston James Work Phone: [facility] 02-27-2024 16:14-0400 Systolic blood pressure 139 mm[Hg] MD Triston James Work Phone: [facility] 02-24-2024 08:06-0400 Body temperature 98.6 [degF] Kang BLANCO [facility] 02-24-2024 08:06-0400 Diastolic blood pressure 83 mm[Hg] Kang COOK [facility] 02-24-2024 08:06-0400 Heart rate 76 /min Kang COOK [facility] 02-24-2024 08:06-0400 Respiratory rate 16 /min Kang COOK [facility] 02-24-2024 08:06-0400 Systolic blood pressure 137 mm[Hg] Kang COOK [facility] 02-12-2024 07:24-0400 Body height 151.13 cm MD Triston James Work Phone: [facility] 02-12-2024 07:24-0400 Body mass index (BMI) [Ratio] 34.3 kg/m2 MD Triston James Work Phone: [facility] 02-12-2024 07:24-0400 Body weight 78.47 kg MD Triston James Work Phone: [facility] 02-12-2024 07:24-0400 Diastolic blood pressure 77 mm[Hg] MD Triston James Work Phone: [facility] 02-12-2024 07:24-0400 Heart rate 78 /min MD Triston James Work Phone: [facility] 02-12-2024 07:24-0400 Respiratory rate 18 /min MD Triston James Work Phone: [facility] 02-12-2024 07:24-0400 SaO2% (BldA) [Mass fraction] 99 % MD Triston James Work Phone: [facility] 02-12-2024 07:24-0400 Systolic blood pressure 139 mm[Hg] MD Triston James Work Phone: [facility] 01-21-2024 14:53-0400 Body height 151.13 cm [facility] 01-21-2024 14:53-0400 Body mass index (BMI) [Ratio] 34.2 kg/m2 [facility] 01-21-2024 14:53-0400 Body weight 78.07 kg [facility] 01-21-2024 14:53-0400 Diastolic blood pressure 86 mm[Hg] [facility] 01-21-2024 14:53-0400 Heart rate 75 /min [facility] 01-21-2024 14:53-0400 Systolic blood pressure 152 mm[Hg] [facility] 11-26-2023 07:57-0500 Body height 149.9 cm Kenneth ONEILL Work Phone: [facility] 11-26-2023 07:57-0500 Body mass index (BMI) [Ratio] 34.34 kg/m2 Kenneth ONEILL Work Phone: [facility] 11-26-2023 07:57-0500 Body weight 77.11 kg Kenneth ONEILL Work Phone: [facility] 11-26-2023 07:57-0500 Diastolic blood pressure 95 mm[Hg] Kenneth ONEILL Work Phone: [employer] 11-26-2023 07:57-0500 Heart rate 83 /min Kenneth Mensahmaria fernanda PA Work Phone: [facility] 11-26-2023 07:57-0500 Respiratory rate 18 /min Kenneth Reyes PA Work Phone: [facility] 11-26-2023 07:57-0500 SaO2% (BldA) [Mass fraction] 100 % Kenneth Reyes PA Work Phone: [facility] 11-26-2023 07:57-0500 Systolic blood pressure 143 mm[Hg] Kenneth Mensahmaria fernanda PA Work Phone: [facility] 07-26-2023 09:00-0400 Body height 151.13 cm Triston James Other [employer] Other 07-26-2023 09:00-0400 Body mass index (BMI) [Ratio] 31.97 kg/m2 Triston James Other [employer] Other 07-26-2023 09:00-0400 Body weight 73.03 kg Triston James Other [employer] Other 07-26-2023 09:00-0400 Diastolic blood pressure 75 mm[Hg] Triston James Other [employer] Other 07-26-2023 09:00-0400 Systolic blood pressure 115 mm[Hg] Triston James Other [employer] Other 05-21-2023 10:45-0400 Body height 151.13 cm Triston James Other [employer] Other 05-21-2023 10:45-0400 Body mass index (BMI) [Ratio] 32.57 kg/m2 Triston James Other [employer] Other 05-21-2023 10:45-0400 Body weight 74.39 kg Triston James Other [employer] Other 05-21-2023 10:45-0400 Diastolic blood pressure 74 mm[Hg] Triston James Other [employer] Other 05-21-2023 10:45-0400 Systolic blood pressure 113 mm[Hg] Triston James Other [employer] [facility] [employer] Other 02-18-2023 08:27-0400 Diastolic blood pressure 96 mm[Hg] Ganesh RICE [facility] 02-18-2023 08:27-0400 Mean blood pressure 110 mm[Hg] Ganesh RICE [facility] 02-18-2023 08:27-0400 Systolic blood pressure 137 mm[Hg] Ganesh RICE [facility] 02-18-2023 08:09-0400 Blood Pressure Location Ganesh RICE [facility] 02-18-2023 08:09-0400 Diastolic blood pressure 120 mm[Hg] Ganesh RICE [facility] 02-18-2023 08:09-0400 Systolic blood pressure 152 mm[Hg] Ganesh RICE [facility] 10-23-2022 12:30-0500 Body height 151.13 cm Triston James Other [employer] [facility] [employer] Other 10-23-2022 12:30-0500 Body mass index (BMI) [Ratio] 32.76 kg/m2 Triston James Other [employer] Other 10-23-2022 12:30-0500 Body weight 74.84 kg Triston James Other [employer] Other 10-23-2022 12:30-0500 Diastolic blood pressure 64 mm[Hg] Triston James Other [employer] Other 10-23-2022 12:30-0500 Systolic blood pressure 128 mm[Hg] Triston James Other [employer] Other 05-21-2022 08:39-0400 Blood Pressure Location [employer] [facility] [place] 05-21-2022 08:39-0400 Diastolic blood pressure 87 mm[Hg] Ganesh RICE [facility] [employer] 05-21-2022 08:39-0400 Heart rate 75 /min Ganesh RICE [facility] [employer] 05-21-2022 08:39-0400 Respiratory rate 16 /min Ganesh RICE [facility] [employer] 05-21-2022 08:39-0400 Systolic blood pressure 136 mm[Hg] Ganesh RICE [facility] [place] 04-24-2022 17:00-0400 Body height 152.4 cm Luc James Other [employer] Other 04-24-2022 17:00-0400 Body mass index (BMI) [Ratio] 26.95 kg/m2 Luc James Other [employer] Other 04-24-2022 17:00-0400 Body weight 62.6 kg Luc James Other [employer] Other Encounters Encounter Date Encounter Type Care Provider Facility Start: 02-23-2025 ambulatory Kang BLANCO Facility :[facility] Start: 10-26-2024 End: 10-26-2024 Bamboo flowsheet George Nina DO Work Phone: [facility] Start: 10-26-2024 End: 10-26-2024 Bamboo flowsheet George Nina DO Work Phone: [facility] Start: 10-26-2024 End: 10-26-2024 Patient encounter procedure George Nina DO Work Phone: [facility] Work Phone: Start: 10-26-2024 End: 10-26-2024 Periodic preventive med est patient 40-64yrs George Nina DO Work Phone: [facility] Comment on above: Well woman exam with routine gynecological exam; Breast cancer screening by mammogram; Postmenopausal state Start: 10-01-2024 ambulatory Macarena Quiros PA-C Facility:[facility] Start: 09-29-2024 End: 09-29-2024 ambulatory Triston James MD Facility:[facility] Start: 09-17-2024 End: 09-17-2024 Office outpatient visit 15 minutes Kenneth Reyes PA Work Phone: [facility] Comment on above: Lumbar radiculopathy (Primary Dx) Start: 09-04-2024 End: 09-04-2024 ambulatory TRISTON JAMES [facility] Start: 08-26-2024 End: 08-26-2024 Vicenta Ross RN [facility] Start: 08-25-2024 End: 08-25-2024 Office outpatient visit 25 minutes Kenneth ONEILL Work Phone: [facility] Comment on above: Lumbar radiculopathy (Primary Dx) Start: 08-25-2024 End: 08-25-2024 ambulatory TRISTON Franky JAMES [facility] Start: 08-21-2024 End: 08-21-2024 ambulatory TRISTON Franky JAMES [facility] Start: 08-14-2024 End: 08-14-2024 ambulatory TRISTON JAMES [facility] Start: 08-11-2024 End: 08-11-2024 ambulatory [facility] Work Phone: Start: 08-11-2024 End: 08-11-2024 Patient encounter procedure [facility] Work Phone: Start: 08-04-2024 End: 08-06-2024 Telephone encounter Kenneth ONEILL Work Phone: [facility] Start: 07-23-2024 End: 07-23-2024 Office outpatient visit 25 minutes Kenneth ONEILL Work Phone: [facility] Comment on above: Lumbar radiculopathy (Primary Dx) Start: 07-23-2024 End: 07-23-2024 ambulatory TRISTON JAMES [facility] Start: 06-11-2024 End: 06-11-2024 ambulatory [facility] Work Phone: Start: 06-11-2024 End: 06-11-2024 Patient encounter procedure [facility] Physician [facility] Work Phone: Start: 04-02-2024 End: 04-02-2024 ambulatory TRISTON Franky JAMES [facility] Start: 03-30-2024 End: 03-30-2024 ambulatory MD Triston James Work Phone: [facility] Work Phone: Start: 03-30-2024 End: 03-30-2024 Patient encounter procedure MD Triston James Work Phone: [facility] Work Phone: Start: 02-29-2024 End: 02-29-2024 ambulatory TRISTON JAMES [facility] Start: 02-28-2024 End: 02-28-2024 ambulatory TRISTON JAMES [facility] Start: 02-27-2024 End: 02-27-2024 ambulatory MD Triston James Work Phone: [facility] Work Phone: Start: 02-27-2024 End: 02-27-2024 Patient encounter procedure MD Triston James Work Phone: [facility] Work Phone: Start: 02-24-2024 End: 02-25-2024 ambulatory Kang BLANCO Facility:[facility] Start: 02-24-2024 End: 02-24-2024 Patient encounter procedure Kang BLANCO [facility] Start: 02-14-2024 Non-patient / Non-visit MD Merle James Work Phone: [facility] Physician [facility] Work Phone: Start: 02-14-2024 End: 02-14-2024 ambulatory TRISTON JAMES [facility] Start: 02-13-2024 End: 02-13-2024 ambulatory Kang Blanco Facility:[facility] Start: 02-13-2024 End: 02-14-2024 ambulatory MD Triston James Work Phone: [facility] Work Phone: Start: 02-13-2024 End: 02-13-2024 Patient encounter procedure MD Triston James Work Phone: [facility] [address] Work Phone: Start: 02-12-2024 End: 02-12-2024 Patient encounter procedure MD Triston James Work Phone: [facility] Physician [facility] Work Phone: Start: 02-01-2024 End: 02-01-2024 ambulatory TRISTON Franky JAMES [facility] Start: 01-31-2024 End: 01-31-2024 ambulatory TRISTON JAMES [facility] Start: 01-22-2024 End: 01-22-2024 ambulatory TRISTON JAMES [facility] Start: 01-21-2024 End: 01-21-2024 ambulatory [facility] Work Phone: Start: 01-21-2024 End: 01-21-2024 Patient encounter procedure [facility] Work Phone: Start: 11-26-2023 End: 11-26-2023 Office outpatient visit 25 minutes Elizabeth Chen PA-C Work Phone: [facility] Comment on above: Disorder of sacrum ( Primary Dx) Start: 11-26-2023 End: 11-26-2023 ambulatory TRISTON JAMES [facility] Start: 11-25-2023 End: 11-25-2023 ambulatory TRISTON JAMES [facility] Start: 11-06-2023 Vicenta Ross RN [facility] Start: 10-22-2023 End: 10-22-2023 ambulatory GEORGE WOOD Not Available Start: 08-16-2023 End: 08-16-2023 ambulatory Triston James Other [employer] Other Start: 08-16-2023 Telephone encounter Triston James [facility] Start: 08-14-2023 End: 08-14-2023 ambulatory Triston James Other [employer] Other Start: 08-14-2023 Telephone encounter Triston James [facility] Start: 08-05-2023 End: 08-05-2023 ambulatory Triston James Other [employer] Other Start: 08-05-2023 Telephone encounter Triston James [facility] Start: 08-02-2023 End: 08-02-2023 ambulatory Triston James Other [employer] Other Start: 08-02-2023 Telephone encounter Triston James [facility] Start: 07-29-2023 End: 07-29-2023 ambulatory Triston James Other [employer] Other Start: 07-29-2023 Telephone encounter Triston James [facility] Start: 07-26-2023 End: 07-26-2023 ambulatory Triston Erika Other [employer] Other Start: 07-26-2023 Encounter for genera l adult medical examination without abnormal findings Triston James [facility] Start: 07-26-2023 Periodic preventive med est patient 40-64yrs Triston James [facility] Start: 06-04-2023 End: 06-04-2023 ambulatory Triston James Other [employer] Other Start: 06-04-2023 Telephone encounter Triston James [facility] Start: 05-21-2023 End: 05-21-2023 ambulatory Triston James Other [employer] Other Start: 05-21-2023 Office outpatient vi sit 25 minutes Triston James [facility] Start: 04-29-2023 End: 04-29-2023 ambulatory Triston James Other [employer] Other Start: 04-29-2023 Telephone encounter Triston James [facility] Start: 04-10-2023 End: 04-10-2023 ambulatory Triston James Other [employer] Other Start: 04-10-2023 Telephone encounter Triston James [facility] Start: 04-07-2023 Refill Ruth Erickson ms, MD Work Phone: Endocrinology Comment on above: Refill Request Start: 02-18-2023 End: 02-18-2023 Patient encounter procedure Ganesh MAY [facility] [place] Start: 02-12-2023 End: 02-12-2023 ambulatory MD Triston James Work Phone: [facility] Work Phone: Start: 02-12-2023 End: 02-12-2023 Patient encounter procedure MD Triston James Work Phone: [facility] [address] Work Phone: Start: 01-04-2023 End: 01-04-2023 ambulatory Ruth Apodaca MD Work Phone: Endocrinology Comment on above: Type 2 diabetes sara itus with hyperglycemia, with long-term current use of insulin (HCC) (Primary Dx) Start: 01-04-2023 End: 01-04-2023 Telemedicine consultation with patient Ruth Apodaca MD Work Phone: [facility] Start: 01-03-2023 Telephone encounter Ruth krueger MD Work Phone: Endocrinology Comment on above: Prep for virtual vis it Start: 12-24-2022 End: 12-24-2022 ambulatory Triston James Other [employer] Other Start: 12-24-2022 Telephone encounter Triston James [facility] Start: 12-17-2022 End: 12-17-2022 ambulatory Triston James Other [employer] Other Start: 12-17-2022 Telephone encounter Triston Erika [facility] Start: 11-26-2022 End: 11-26-2022 ambulatory Triston James Other [employer] Other Start: 11-26-2022 Telephone encounter Triston Erika [facility] Start: 11-20-2022 End: 11-20-2022 ambulatory Triston James Other [employer] Other Start: 11-20-2022 Telephone encounter Triston Erika [facility] Start: 10-23-2022 End: 10-23-2022 ambulatory Triston James Other [employer] Other Start: 10-23-2022 Office outpatient vi sit 15 minutes Triston James [facility] Start: 10-19-2022 End: 10-19-2022 ambulatory Triston James Other [employer] Other Start: 10-19-2022 Telephone encounter Triston Erika [facility] [place] Start: 10-17-2022 End: 10-17-[address] GEORGE WOOD Facility:[facility] Start: 10-12-2022 Refill Ruth Erickson ms, MD Work Phone: Endocrinology Comment on above: Refill Request Start: 09-18-2022 Adult health examination Kimberly James Other [employer] Other Start: 09-18-2022 Problem, abnormal examination Triston James Other [employer] Other Start: 05-22-[address] LUIS ANGEL Cervantes ty:[facility] Start: 05-21-2022 End: 05-21-2022 Patient encounter procedure Ganesh MAY [facility] Start: 04-24-2022 End: 04-24-2022 ambulatory Luc James Other [facility] [employer] Other Start: 04-24-2022 Office outpatient vi sit 15 minutes Luc James [facility] Start: 02-26-2022 End: 02-26-2022 ambulatory RUTH APODACA Facility:[facility] Start: 02-26-2022 End: 02-26-2022 ambulatory Ruth Apodaca MD Work Phone: Endocrinology Comment on above: Uncontrolled type 2 diabetes mellitus with hyperglycemia, with long-term current use of insulin (HCC) (Primary Dx) Start: 02-26-2022 End: 02-26-2022 Telemedicine consultation with patient Ruth Apodaca MD Work Phone: [facility] Start: 02-15-2022 Orders Only Ruth Erickson ms, MD Work Phone: Endocrinology Comment on above: Vaginal yeast infect ion (Primary Dx) Start: 02-11-2022 End: 02-11-[address] TRISTON JAMES Facility:[facility] Start: 02-06-2022 Orders Only Ruth Erickson ms, MD Work Phone: Endocrinology Comment on above: Uncontrolled type 2 diabetes mellitus with hyperglycemia, without long-term current use of insulin (HCC) Start: 02-05-2022 End: 02-05-2022 ambulatory RUTH APODACA Facility:[facility] Start: 02-05-2022 End: 02-05-2022 ambulatory Ruth Apodaca MD Work Phone: Endocrinology Comment on above: Uncontrolled type 2 diabetes mellitus with hyperglycemia, without long-term current use of insulin (HCC) (Primary Dx) Start: 02-05-2022 End: 02-05-2022 Telemedicine consultation with patient Ruth Apodaca MD Work Phone: [facility] Start: 01-26-2022 End: 01-27-[address] TRISTON JAMES Facility:[facility] Start: 01-19-2022 Refill Ruth Erickson ms, MD Work Phone: Endocrinology Comment on above: Refill Request Procedures Date Procedure Procedure Detail Performing Clinician Start: 02-13-2024 Diagnostic radiograp hy of abdomen MD Triston James Work Phone: Start: 02-12-2023 Diagnostic radiograp hy of abdomen MD Triston James Work Phone: Start: 04-13-2020 Cystoscopy Ganesh CARRASCO E Start: 04-13-2020 Extracorporeal shock wave lithotripsy of calculus of kidney Ganesh MAY Start: 03-30-2020 Cystoscopy and retro grade pyelography Ganesh MAY Comment on above: stent placement. Start: 03-30-2020 Extracorporeal shock wave lithotripsy of calculus of kidney Ganesh MAY Comment on above: left Start: 11-23-2019 Adult depression scr eening assessment Ruth Apodaca MD Work Phone: Start: 09-23-2019 Mammography Ruth abad MD Work Phone: Start: 05-01-2019 Cystoscopy Ganesh CARRASCO E Start: 05-01-2019 Extracorporeal shock wave lithotripsy of calculus of kidney Ganesh MAY Comment on above: left Start: 05-01-2019 Placement of stent Andrew MAY Comment on above: left with retrograde Start: 03-18-2019 Cystoscopy Ganesh DANILO E Comment on above: Cystoscopy and ureth ral dilatation Start: 09-02-2018 Microscopic observat ion [Identifier] in Cervix by Cyto stain Mitali Ross RN Start: 05-15-2017 cysto lt retrograde lt ureteroscopy laser holmium lt stent. Ganesh MAY Start: 10-14-1997 Hernia of anterior abdominal wall (disorder) Ganesh MAY Start: 10-14-1996 section Ganesh MAY Start: 10-14-1990 Tonsillectomy Ganesh BARRERA Lithotripsy Ganesh MAY Ureteroscopy [employer] [employer] Plan of Treatment Date Care Activity Detail Author Start: 11-02-2025 End: 11-02-2025 Patient encounter procedure 11/02/2025 8:30 AM EST Office Visit [facility] [address] [place] [address] George Wood, DO [address], [place] [id number] [facility] Start: 09-17-2025 Adult BMI Screening Adult BMI Screen ing [facility] Start: 09-17-2025 Tobacco Screening Tobacco Screening [facility] Start: 08-25-2025 Adult BMI Screening Adult BMI Screen ing [facility] Start: 08-25-2025 Tobacco Screening Tobacco Screening [facility] Start: 07-23-2025 Adult BMI Screening Adult BMI Screen ing [facility] Start: 07-23-2025 Tobacco Screening Tobacco Screening [facility] Start: 11-26-2024 Adult BMI Screening Adult BMI Screen ing [facility] Start: 11-26-2024 Tobacco Screening Tobacco Screening [facility] Start: 10-26-2024 End: 12-24-2025 MG Breast - bilateral Screening Bilateral screening mammogram Imaging Routine Breast cancer screening by mammogram Expected: 10/26/2024, Expires: 12/24/2025 [facility] Work Phone: Comment on above: Expected: 10/26/2024 , Expires: 12/24/2025 Start: 10-26-2024 End: 10-26-2024 Patient encounter procedure 10/26/2024 8:30 AM EST Office Visit [facility] [address] [place] [address] George Wood, DO [address], [place] [id number] Arrived [facility] Comment on above: Arrived Start: 10-22-2024 End: 10-22-2024 Patient encounter procedure 10/22/2024 2:30 PM EST Office Visit [facility] [address] [place] [id number] Kenneth Reyes PA [address] [place] [address] [facility] Start: 09-18-2024 End: 09-18-2024 Admission to same day surgery center 09/18/2024 7:26 AM EST - 09/18/2024 7:33 AM EST Surgery [facility] [address] [place] [id number] Nicko Campbell MD [address] [facility] [place] [id number] INJECTION SPINE TRANSFORAMINAL: left L 5,1 nroot [94170 (CPT )] [facility] Comment on above: INJECTION SPINE BHARDWAJ SFORAMINAL: left L 5,1 nroot [17437 (CPT )] Start: 09-18-2024 End: 09-18-2024 Njx anes&/strd w/img tfrml edrl lmbr/sac 1 lvl INJECTION SPINE TRANSFORAMINAL Lumbar radiculopathy 09/18/2024 7:26 AM EST [facility] Start: 09-18-2024 Subsequent hospital visit by physician 09/18/2024 7:26 AM EST Hospital Encounter [facility] [address] [place] [id number] Nicko Campbell MD [address] [place] [place] [id number] [facility] Start: 09-17-2024 End: 09-17-2024 Patient encounter procedure 09/17/2024 2:45 PM EST Office Visit [facility] [address] [place] [phone] Kenneth Reyes PA [address] [place] [address] [facility] Start: 09-08-2024 End: 09-08-2024 Patient encounter procedure 09/08/2024 2:45 PM EST Office Visit [facility] [address] [place] [phone] Kenneth Reyes PA [address] [place] [address] [facility] Start: 09-04-2024 End: 09-04-2024 Admission to same day surgery center 09/04/2024 10:29 AM EST - 09/04/2024 10:36 AM EST Surgery [facility] [address] [place] [phone] Nicko Campbell MD [address] [place], [place] [id number] INJECTION SPINE TRANSFORAMINAL: left L 5,1 nroot [36416 (CPT )] [facility] Comment on above: INJECTION SPINE BHARDWAJ SFORAMINAL: left L 5,1 nroot [[id number] (CPT )] Start: 09-04-2024 End: 09-04-2024 Njx anes&/strd w/img tfrml edrl lmbr/sac 1 lvl INJECTION SPINE TRANSFORAMINAL Lumbar radiculopathy 09/04/2024 10:29 AM EST [facility] Start: 09-04-2024 Subsequent hospital visit by physician 09/04/2024 10:29 AM EST Hospital Encounter [facility] [address] [place] [address] Nicko Campbell MD [address] [place] [address] [facility] Start: 09-04-2024 End: 09-04-2024 Patient encounter procedure 09/04/2024 7:50 AM EST Appointment [facility] [address] [place] [address] Nicko Campbell MD [address] [place] [address] [facility] Start: 08-27-2024 Adult BMI Screening Adult BMI Screen ing [facility] Start: 08-27-2024 Tobacco Screening Tobacco Screening [facility] Start: 08-25-2024 End: 08-25-2024 Patient encounter procedure 08/25/2024 3:00 PM EST Office Visit [facility] [address] [place] [address] Kenneth Reyes PA [address] [place] [address] [facility] Start: 08-21-2024 End: 08-21-2024 Patient encounter procedure 08/21/2024 6:45 AM EST Appointment [facility] [address] [place] [address] Kenneth Reyes PA [address] [place] [address] [facility] Start: 08-14-2024 End: 08-14-2024 Admission to same day surgery center 08/14/2024 8:03 AM EDT - 08/14/2024 8:10 AM EDT Surgery [facility] [address] [place] [address] Nicko Campbell MD [address] [place] [id number] INJECTION SPINE TRANSFORAMINAL: left L51 [45575 (CPT )] [facility] Comment on above: INJECTION SPINE BHARDWAJ SFORAMINAL: left L51 [[id number] (CPT )] Start: 08-14-2024 End: 08-14-2024 Njx anes&/strd w/img tfrml edrl lmbr/sac 1 lvl INJECTION SPINE TRANSFORAMINAL Lumbar radiculopathy 08/14/2024 8:03 AM EDT [facility] Start: 08-14-2024 Subsequent hospital visit by physician [facility] Start: 08-04-2024 End: 08-04-2025 MR Lumbar spine WO contrast MR lumbar spine without contrast Imaging Routine Lumbar radiculopathy Lumbar radiculopathy, chronic Expected: 08/04/2024, Expires: 08/04/2025 [facility] Work Phone: Comment on above: Expected: 08/04/2024 , Expires: 08/04/2025 Start: 06-14-2024 Influenza vaccination Influenza Vacc ine [facility] Start: 02-12-2024 Patient referral [facility] Work Phone: Start: 01-21-2024 Patient referral [facility] Work Phone: Start: 11-25-2023 End: 11-25-2023 Patient encounter procedure [facility] DEXA Start: 11-19-2023 End: 11-19-2023 Patient encounter procedure 11/19/2023 2:45 PM EST Office Visit [facility] [address] [place] [address] Elizabeth Chen, PA-C [address] [place] [address] Glory Reyes, DOCTOR OF AUDIOLOGY-PLAIN CLOTHES POLICE OFFICER [address] [place] [address] [facility] Start: 2023 Administration of varicella zoster vaccine Zoster (Shingles) Vaccine (1 of 2) [facility] Start: 06-14-2023 Influenza vaccination [facility] Start: 10-14-2022 DEPRESSION ASSESSMENT DEPRESSION ASS [facility] Start: 06-14-2022 Influenza vaccination [facility] Start: 10-14-2021 [facility] Start: 09-02-2021 Screening for malign ant neoplasm of cervix Pap Smear [facility] Start: 06-21-2021 Hemoglobin A1c/Hemoglobin.total in Blood HBA1C [facility] Start: 12-01-2020 ANNUAL PCP TEAM SPECIMEN TRANSPORTER JOSEPH DISEASE VISIT ANNUAL PCP TEAM CHRONIC DISEASE VISIT [facility] Start: 11-23-2020 Adult depression screening assessment DEPRESSION SCREENING [facility] Start: 09-23-2020 Mammography MAMMOGRAM [facility] Start: 2018 COLOGUARD (FIT-DNA) COLOGUARD (FIT-D NA) [facility] Start: 2018 Colonoscopy COLONOSCOPY [facility] Start: 2018 COLORECTAL CANCER SCREENING COLORECTAL CANCER SCREENING [facility] Start: [address] COLONOGRAPHY [facility] Start: 2018 FECAL OCCULT BLOOD FECAL OCCULT BLOO D [facility] Start: 2018 SIGMOIDOSCOPY SIGMOIDOSCOPY [facility] Start: 2003 HPV TESTING HPV TESTING [facility] Start: 1994 PAP TESTING PAP TESTING [facility] Start: 1992 DTaP,Tdap and Td Vaccines (1 - Tdap) DTaP,Tdap and Td Vaccines (1 - Tdap) [facility] Start: 1992 Urine microalbumin profile DTAP,TDAP,TD (1 - Tdap) [facility] Start: 1991 Adult BMI Follow Up Plan Adult BMI F ollow Up Plan [facility] Start: 1991 Diabetic foot examination Diabetic Foot Exam [facility] Start: 1991 Hepatitis B surface antibody level LDL CHOLESTEROL [facility] Start: 1991 HEPATITIS C SCREENING HEPATITIS C SC REEJUVE [facility] Start: 1991 HIV SCREENING HIV SCREENING [facility] Start: 1989 ONE PNEUMOVAX PRIOR TO AGE 65 ONE PNEUMOVAX PRIOR TO AGE 63 [facility] Start: 1985 Depression Screening Depression Scre ening [facility] Start: 1983 3 comp foot exam completed DIABETIC FOOT EXAM [facility] Start: 1983 Hepatitis B screening URINE AL BUMIN:CREATININE RATIO [facility] Start: 1983 Hepatitis C antibody , confirmatory test DILATED RETINAL EXAM [facility] Start: 1979 PNEUMOCOCCAL (1 - PCV) PNEUMOCOCCAL (1 - PCV) [facility] Start: 1978 COVID-19 VACCINE (#1) COVID-19 VACCI NE (#1) [facility] Start: 1978 COVID-19 VACCINE (1) COVID-19 VACCIN E (1) [facility] Start: 1973 COVID-19 VACCINE (#1) COVID-19 VACCI NE (#1) [facility] Start: 1973 Glaucoma screening Diabetic Op hthalmology Exam [facility] Start: 1973 HEPATITIS B (1 of 3 - 3-dose series) HEPATITIS B (1 of 3 - 3-dose series) [facility] Comprehensive metabo lic 1999 panel - Serum or Plasma [facility] Comprehensive metabo lic 2000 panel - Serum or Plasma [facility] Insulin C-peptide measurement [facility] Njx anes&/strd w/img tfrml edrl lmbr/sac 1 lvl INJECTION SPINE TRANSFORAMINAL Lumbar radiculopathy [facility] Patient Education [facility] Work Phone: Patient referral [facility] Work Phone: Radiofrequency abltj nrv nrvtg si jt w/img gdn RADIOFREQUENCY ABLATION SPINAL Disorder of sacrum [facility] THIN PREP TIS PAP AN D HR HPV DNA THIN PREP TIS PAP AND HR HPV DNA Pathology and Cytology Routine Well woman exam with routine gynecological exam Ordered: 10/26/2024 [facility] Comment on above: Ordered: 10/26/2024 [facility] Immunizations Immunization Date Immunization Notes Care Provider Inga eckert NEGATED: Highlighted row has not occurred!02-24-2024 influenza virus vaccine, unspecified formulation Kang BALNCO [facility] NEGATED: Highlighted row has not occurred!09-21-2019 influenza virus vaccine, unspecified formulation Ganesh MAY [facility] Payers Date Payer Category Payer Managed Care Other (unspecified) [employer] [id number] 2023 Unknown [id number] 2022 [facility] Mem er [id number] 2022 Blue [employer] Blue Shie ld Managed Care - Other ANTHEM [id number]. [id number] 2021 Private Health Insurance [employer] [place] [id number]. [id number] 2018 Unknown MMO MMO [employer] PLUS [id number] 2018-Present [phone] [address] [place] [address] PPO [id number] 1.2.840.154906.1.13.159.2. 7.3.097854.315 2016 Unknown [id number] 1.2.840.028500.1.13.159.2. 7.3.554135.315 2014 Unknown 1.2.840.315375. 1.13.159.2. 7.3.404449.315 1973 Unknown [id number] 2.16.840.1.953705.3.579.2. 593 1973 Unknown [id number] 2.16.840.1.659151.3.579.2. 593 1973 Unknown [id number] 2.16.840.1.797779.3.579.2. 593 1973 Unknown [id number] 2.16.840.1.725574.3.579.2. 593 1973 Unknown [id number] 2.16.840.1.390900.3.579.2. 1259 1973 Unknown [id number] 2.16.840.1.947180.3.579.2. 727 1973 Unknown [id number] 2.16840.1.261869.3.579.2. 727 1973 Unknown [id number] 2.16.840.1.038991.3.579.2. 128 1973 Unknown [id number] 2.16.840.1.618929.3.579.2. 1285 1973 Unknown [id number] 2.16.840.1.187871.3.579.2. 128 1973 Unknown [id number] 2.16.840.1.025401.3.579.2. 128 1973 Unknown [id number] 2.16.840.1.102153.3.579.2. 1285 1973 Unknown [id number] 2.16.840.1.555457.3.579.2. 1285 1973 Unknown [id number] 2.16.840.1.153643.3.579.2. 1285 1973 Unknown [id number] 2.16.840.1.487038.3.579.2. 1285 1973 Unknown [id number] 2.16.840.1.360132.3.579.2. 1285 1973 Unknown [id number] 2.16.840.1.544813.3.579.2. 1285 1973 Unknown [id number] 2.16.840.1.382500.3.579.2. 1285 1973 Unknown [id number] 2.16.840.1.638028.3.579.2. 1285 1973 Unknown [id number] 2.16.840.1.328971.3.579.2. 1285 1973 Unknown [id number] 2.16.840.1.872040.3.579.2. 1285 1973 Unknown [id number] 2.16.840.1.426311.3.579.2. 1285 1973 Unknown [id number] 2.16.840.1.856929.3.579.2. 1285 1973 Unknown [id number] 2.16.840.1.516559.3.579.2. 1285 1973 Unknown [id number] 2.16.840.1.916836.3.579.2. 1285 1973 Unknown [id number] 2.16.840.1.022765.3.579.2. 1285 1973 Unknown [id number] 2.16.840.1.100236.3.579.2. 1285 1973 Unknown [id number] 2.16.840.1.420560.3.579.2. 1285 1973 Unknown [id number] 2.16.840.1.498178.3.579.2. 1285 1973 Unknown [id number] 2.16.840.1.070751.3.579.2. 1973 Unknown [id number] 2.16.840.1.459589.3.579.2. 1973 Unknown [id number] 2.16.840.1.693351.3.579.2. 196 1973 Unknown [id number] 2.16.840.1.154624.3.579.2. 196 1959 [facility] [id number] 2.16.840.1.810295.19 1959 Unknown [id number] 2.16.840.1.301499.19 1959 Unknown [id number] Self-pay Self Pay [id number] Social History Date Type Detail Facility Start: 11-30-2019 End: 09-26-2023 Tobacco smoking status NHIS Never smoked tobacco [facility] Start: 11-30-2019 End: 09-26-2023 Tobacco use and exposure Smokeless tobacco non-user [facility] Start: 11-24-2019 End: 11-30-2019 History SDOH Alcohol Frequency 1 [facility] Start: 11-24-2019 End: 11-30-2019 History SDOH Social Connections Phone 5 [facility] Start: 11-24-2019 History SDOH Social Connections Get Together 3 [facility] Start: 11-24-2019 End: 11-30-2019 History SDOH Social Connections Restorationist 2 [facility] Start: 11-24-2019 History SDOH Physica l Activity DPW 0 [facility] Start: 11-24-2019 Education 16 [facility] Start: 1975 Sex Assigned At Female [facility] Start: 08-27-2023 End: 10-26-2024 Sex Assigned At [employer] [facility] Start: 10-22-2023 Tobacco smoking status Never [facility] Start: 08-27-2023 End: 09-17-2024 Alcohol intake Current non-drinker of alcohol (finding) [facility] Start: 08-27-2023 End: 10-26-2024 History of Social function [facility] Start: 05-28-2023 Gender identity Identifies as female gender (finding) [facility] Start: 05-28-2023 Sexual orientation Heterosexual (fin ding) [facility] Start: 05-19-2015 Sex Female (finding) [facility] Start: 10-22-2023 End: 10-26-2024 Alcoholic beverage intake Lifetime non-drinker (finding) [facility] Start: 09-26-2023 Alcohol Comment caffeine: 1-2 cups per day [facility] NEGATED: Highlighted row [facility] Medical Equipment Procedure Code Equipment Code Equipment Origin al Text Equipment Identifier Dates Start: 08-18-2021 Comment on above: Use as instructed to test blood sugars three times daily use one daily with i nsulin pen use one daily with i nsulin injection CYSTOSCOPY RETROGRADE STENT INSERTION Ganesh MAY MD 03/30/20 Non Biological Ureter L [id number] [facility] Start: 03-30-2020 Pen Needle, Diabetic (Bd Ultra-Fine Sharmila Pen Needle) 32 gauge x 5/32 needle Start: 02-12-2024 Pen Needle, Diabetic (Bd Ultra-Fine Sharmila Pen Needle) 32 gauge x 5/32 needle Start: 02-12-2024 Pen Needle, Diabetic (Bd Ultra-Fine Sharmila Pen Needle) 32 gauge x 5/32 needle Start: 02-12-2024 Pen Needle, Diabetic (Bd Ultra-Fine Sharmila Pen Needle) 32 gauge x 5/32 needle Start: 02-12-2024 Pen Needle, Diabetic (Bd Ultra-Fine Sharmila Pen Needle) 32 gauge x 5/32 needle Start: 02-12-2024 Pen Needle, Diabetic (Bd Ultra-Fine Sharmila Pen Needle) 32 gauge x 5/32 needle Start: 02-12-2024 Functional Status Date Assessment Result Facility 02-24-2024 Functional Status N/A [facility] 02-18-2023 Functional Status N/A [facility] 05-21-2022 Functional Status N/A [facility] Clinical Notes 12-01-2019 to 10-26-2024 NINO Burroughs - 10/26/2024 8:30 AM NINO Calderon - 09/17/2024 2:45 PM ESTTelephone Encounter - Mitali Ross RN - 08/26/2024 11:40 AM NINO Calderon - 08/25/2024 3:00 PM EST Note Date & Type Note Facility 10-26-2024 History of Presen t illness Narrative Reason for Appointment: Patient ID: Nathalia Patino is a 49 y.o. female who presents for Well Women Visit Patient presents today for Annual Exam. MEDICATIONS Current Outpatient Medications Medication Instructions carisoprodol (SOMA) 350 mg, Oral [facility] Allergy Relief 10 MG capsule 1 capsule, Oral, Daily esomeprazole (NEXIUM) 40 mg, Oral, Daily before breakfast ferrous sulfate 325 mg, Oral, Daily with breakfast fluorouracil (Efudex) 5 % cream APPLY 1-2 GRAMS TO CHEST TWICE DAILY UP TO THREE WEEKS. gabapentin (NEURONTIN) 600 mg, Oral, Nightly hydroCHLOROthiazide (HYDRODiuril) 25 MG tablet ibuprofen 800 MG tablet TAKE 1 TABLET THREE TIMES A DAY NEEDED meloxicam (MOBIC) 15 mg, Oral, Daily RT norethindrone-ethinyl estradiol (Cyclafem 1/35) 1-35 MG-MCG tablet 1 tablet, Oral, Daily pioglitazone (ACTOS) 15 mg, Oral, Daily RT Semglee, yfgn, 100 UNIT/ML pen INJECT 40 UNITS UNDER THE SKIN BEFORE BEDTIME SUMAtriptan (Imitrex) 100 MG tablet traZODone (Desyrel) 150 MG tablet Every 24 hours ALLERGIES Allergies Allergen Reactions Cefuroxime Other Reaction(s): Unknown Oxaprozin Hives Sulfa Antibiotics Other Reaction(s): Unknown Sulfamethoxazole Other Reaction(s): Other (See Comments) Sulfamethoxazole-Trimethoprim Hives Other Reaction(s): Unknown Other Reaction(s): Cough Tramadol Other Reaction(s): Unknown Doxycycline Rash PROBLEMS Active Ambulatory Problems Diagnosis Date Noted No Active Ambulatory Problems Resolved Ambulatory Problems Diagnosis Date Noted No Resolved Ambulatory Problems Past Medical History: Diagnosis Date Arthritis Diabetes (CMS/HCC) Fibromyalgia History of section Kidney stones Ventral hernia Vitamin D intoxication [place] teeth extracted HISTORY PAST MEDICAL HISTORY SOCIAL HISTORY Past Medical History: Diagnosis Date Arthritis Diabetes (CMS/HCC) Fibromyalgia History of section Kidney stones Ventral hernia Vitamin D intoxication Cr[place] teeth extracted Social History Tobacco Use Smoking status: Never Smokeless tobacco: Never Substance Use Topics Alcohol use: Never Comment: caffeine: 1-2 cups per day Drug use: Never FAMILY HISTORY Family History Problem Relation Name Age of Onset Hypertension Mother Rheum arthritis Sister Other (Psoriatic arthritis) Sister SURGICAL HISTORY Past Surgical History: Procedure Laterality Date HERNIA REPAIR KIDNEY STONE SURGERY Kidney stones (03/30, 04/2019) TONSILLECTOMY REVIEW OF SYSTEMS Review of Systems: Review of Systems Constitutional: Negative. HENT: Negative. Eyes: Negative. Respiratory: Negative. Cardiovascular: Negative. Gastrointestinal: Negative. Genitourinary: Negative. Musculoskeletal: Negative. Skin: Positive for rash. Currently treatment with chemo drug, Neurological: Negative. All other systems reviewed and are negative. Hematological: Negative. Endocrine: Negative. Allergic/Immunologic: Negative. OBJECTIVE Objective: Physical Exam Constitutional: Appearance: Normal appearance. Genitourinary: Right Adnexa: not tender and no mass present. Left Adnexa: not tender and no mass present. No cervical discharge. Breasts: Breasts are soft. Right: Normal. Left: Normal. HENT: Head: Normocephalic. Nose: Nose normal. Mouth/Throat: Mouth: Mucous membranes are moist. Cardiovascular: Rate and Rhythm: Normal rate. Pulmonary: Effort: Pulmonary effort is normal. Abdominal: General: Bowel sounds are normal. Palpations: Abdomen is soft. Musculoskeletal: General: Normal range of motion. Cervical back: Normal range of motion. Neurological: General: No focal deficit present. Mental Status: She is alert. Skin: General: Skin is warm and dry. Comments: Patient currently using a chemotherapy cream. Skin is red, scaling on face and chest Psychiatric: Mood and Affect: Mood normal. Vitals and nursing note reviewed. Exam conducted with a algebraist present. Vitals: Estimated body mass index is 29.08 kg/m as calculated from the following: Height as of 10/22/23: 4' 11 . Weight as of this encounter: 144 lb. BP: 118/78 No LMP recorded. ASSESSMENT & PLAN ICD-10-CM 1. Well woman exam with routine gynecological exam Z01.419 THIN PREP TIS PAP AND HR HPV DNA 2. Breast cancer screening by mammogram Z12.31 Bilateral screening mammogram Bilateral screening mammogram 3. Postmenopausal state Z78.0 CANCELED: DEXA bone density Annual Exam: Patient presents today for an annual exam. Patient states she is doing well and has no complaints. Pap was obtained without difficulty. Orders Placed This Encounter Procedures Bilateral screening mammogram Follow Up: Patient is to return in one year for annual unless needed otherwise. Documented by NINO Burroughs on behalf of: George Wood DO documented in this encounter [facility] 09-17-2024 History of Presen t illness Narrative [facility] Management [address] [place] [address] Patient: Nathalia Patino Sex: female : 1975 Age: 49 y.o. PCP: TRISTON JAMES MD 09/17/2024 Nathalia Patino is here for a(n) post procedure follow up 09/04/2024 Left L5S1 Nerved Root Injection with 0% . Patient was prescribed a prednisone at last office visit. This provided mild-moderate temporary relief. Date of onset of pain: chronic , pain has lasted greater than 3 months. Pain scale before treatment: 7/10 Pre-op pain score: 7/10 Post-op pain score: 7/10 2 hour post-op pain score: 7/10 4 hour post-op pain score: 7/10 Percentage of relief after and duration: see above Pain scale after treatment: 7/10 Chief Complaint Patient presents with Back Pain HPI: PT/HEP (@ 2019) made worse Back: 06/15/22 Nilesh L 02/11 MBB w/0% relief 07/13/2022 L5/S1 JOHNNIE with 35% relief x 5 days 08/17/2022 caudal JOHNNIE w/ 50% relief for 6 days 11/16/22 Nilesh SI Inj w/75% relief continued 02/15/23 Left SI RFA 75% relief 03/08/23 Right SI RFA 100% relief left SI RFA on 01/31/2024 with 80% relief right SI RFA on 02/28/2024 with 80% improvement 09/04/2024 Left L5S1 NRI 0%. Back Pain This is a chronic problem. The current episode started more than 1 year ago. The problem occurs constantly. The problem is unchanged. The pain is present in the lumbar spine, gluteal and sacro-iliac. The quality of the pain is described as aching. The pain radiates to the left knee, left foot and left thigh (posterior to knee then lateral to ankle). The pain is at a severity of 7/10. The pain is moderate. The pain is The same all the time. The symptoms are aggravated by bending, standing and sitting (stairs). Stiffness is present In the morning. Associated symptoms include leg pain (posterior aspect og LLE to mid calf, less to posterior aspect of right thigh). Pertinent negatives include no abdominal pain, bladder incontinence, bowel incontinence, chest pain, fever, numbness, tingling or weakness. (posterior to knee then lateral to ankle) Risk factors include obesity. She has tried chiropractic manipulation, heat, ice, NSAIDs and home exercises (PT/HEP (@ 2019), chiropractor, water therapy, massage therapy, Francisco, ibuprofen/celebrex, Tylenol arthritis, ice/heat, Georgina stone/infrared mat, HEP, lyrica, lidocaine patches, mobic w/mod relief) for the symptoms. The treatment provided moderate relief. The effect of pain on patient's ADLS: Mild Impairment. Past Medical History: Diagnosis Date Acid reflux Asthma Chronic pain disorder Diabetes mellitus [place] Fibromyalgia Heart murmur Hypertension Hyperthyroidism Kidney stones Low back pain Migraine Osteoarthritis Rheumatoid arthritis [facility]) Skin cancer 2014 Vulvodynia Past Surgical History: Procedure Laterality Date SECTION COLONOSCOPY 2019 HERNIA MESH REMOVAL INJECTION BLOCK EPIDURAL CAUDAL STEROID N/A 08/17/2022 Performed by Nicko Campbell MD at [facility] INJECTION BLOCK EPIDURAL STEROID LUMBAR/SACRAL L 5/ JOHNNIE N/A 07/13/2022 Performed by Nicko Campbell MD at [facility] INJECTION BLOCK NERVE MEDIAL BRANCH Bilat L 5/ Bilateral 06/15/2022 Performed by Nicko Campbell MD at [facility] INJECTION BLOCK SACROILIAC JOINT Bilateral 11/16/2022 Performed by Nicko Campbell MD at [facility] SPINE TRANSFORAMINAL: left L 5,1 nroot Left 09/04/2024 Performed by Nicko Campbell MD at [facility] KIDNEY STONE SURGERY 2019 LITHOTRIPSY 2008, 2017, 2018, 2020 (x2) RADIOFREQUENCY ABLATION SPINAL LEFT SI Left 02/15/2023 Performed by Nicko Campbell MD at [facility] RADIOFREQUENCY ABLATION SPINAL Right SI Right 03/08/2023 Performed by Nicko Campbell MD at [facility] RADIOFREQUENCY ABLATION SPINAL: left SI Left 01/31/2024 Performed by Nicko Campbell MD at [facility] RADIOFREQUENCY ABLATION SPINAL: right SI Right 02/28/2024 Performed by Nicko Campbell MD at [facility] TONSILLECTOMY URETHRAL DILATION 06/2017 VENTRAL HERNIA REPAIR 06/1997 Allergies Allergen Reactions Bactrim [Sulfamethoxazole-Trimethoprim] Hives Cat Dander Other reaction(s): Mild Other reaction(s): Other: See Comments Other reaction(s): Mild Oxaprozin Hives Sulfamethoxazole Other (See Comments) Doxycycline Rash Family History Problem Relation Age of Onset High Cholesterol Father Hypertension Mother Breast cancer Neg Hx Diabetes Neg Hx Social History Socioeconomic History Marital status: Spouse name: Not on file Number of children: Not on file Years of education: Not on file Highest education level: Not on file Occupational History Not on file Tobacco Use Smoking status: Never Smokeless tobacco: Never Vaping Use Vaping status: Never Used Substance and Sexual Activity Alcohol use: No Drug use: No Sexual activity: Defer Partners: Male control/protection: OCP Other Topics Concern Not on file Social History Narrative Not on file Social Drivers of Health Financial Resource Strain: Low Risk (11/30/2019) Received from [facility] Overall Financial Resource Strain (CARDIA) Difficulty of Paying Living Expenses: Not hard at all Food Insecurity: No Food Insecurity (09/17/2024) Hunger Screening Food Insecurity - Worry: Never True Food Insecurity - Inability: Never True Transportation Needs: No Transportation Needs (11/30/2019) Received from [facility] PRAPARE - Transportation Lack of Transportation (Medical): No Lack of Transportation (Non-Medical): No Physical Activity: Inactive (11/24/2019) Received from [facility] Exercise Vital Sign Days of Exercise per Week: 0 days Minutes of Exercise per Session: 0 min Stress: No Stress Concern Present (11/24/2019) Received from [facility] [place] [employer] - Occupational Stress Questionnaire Feeling of Stress : Only a little Social Connections: Socially Integrated (11/24/2019) Received from [facility] Social Connection and Isolation Panel [NHANES] Frequency of Communication with Friends and Family: More than three times a week Frequency of Social Gatherings with Friends and Family: Twice a week Attends Yazidi Services: 1 to 4 times per year Active Member of Clubs or Organizations: Yes Attends Club or Organization Meetings: 1 to 4 times per year Marital Status: Interpersonal Safety: Not on file Housing Instability: Not on file Review of Systems Constitutional: Negative. Negative for chills, fatigue and fever. HENT: Negative. Eyes: Negative. Respiratory: Negative. Negative for cough and shortness of breath. Cardiovascular: Negative. Negative for chest pain. Gastrointestinal: Negative. Negative for abdominal pain and bowel incontinence. Endocrine: Negative. Genitourinary: Negative. Negative for bladder incontinence. Musculoskeletal: Positive for back pain. Negative for gait problem. Skin: Negative. Negative for rash and wound. Allergic/Immunologic: Negative. Neurological: Negative. Negative for tingling, weakness and numbness. Hematological: Negative. Does not bruise/bleed easily. Psychiatric/Behavioral: Negative. Negative for self-injury and suicidal ideas. Vital Signs: BP 132/88 Pulse 76 Resp 18 Ht 149.9 cm (4' 11 ) Wt 65.8 kg (145 lb) SpO2 100% BMI 29.29 kg/m Physical Exam: GENERAL - Healthy patient that appears stated age. HEENT - Normocephalic / Atraumatic, Extraoccular movements intact, trachea midline, thyroid within normal limits. CV - pulse regular, Warm extremities with appropriate color of nailbeds. RESP - No obvious wheezing, No Shortness of Breath, No overexertion response to exam maneuvers. COORDINATION - remains intact. PSYCH - Alert and Oriented x4, Attentive and appropriate, constitutionally normal, displays normal mood and affect per situation, answered questions appropriately during examination, demonstrated appropriate attention during discussion, demonstrated appropriate cognitive reasoning and understanding of the medical condition by asking appropriate questions regarding the diagnosis and risks/benefits/alternatives of treatment modalities. No obvious deficits in memory, reasoning, or intellect. Lumbar: SKIN - No rashes or bruising in the area of the patient s pain. LYMPH NODES - demonstrate no obvious enlargement. EXTREMITIES - Lower extremities are warm, with minimal edema and palpable pulses. Tenderness to palpation noted in the lumbar spine and paraspinal musculature. Pain is elicited with flexion, extension, and lateral rotation of the lumbar spine. Range of motion is diminished with these motions due to pain. Facet palpation is noted to be somewhat tender and facet loading maneuvers are mildly positive, but not concordant with the patient s normal pain complaints. STRENGTH - noted to be 5 out of 5 all muscle groups bilateral lower extremities including muscles involving hip flexion and abduction, knee flexion and extension, as well as foot dorsiflexion and plantarflexion. No notable atrophy, fasciculations or spasm. SENSORY - No notable sensory deficits in the bilateral lower extremities to touch or pinprick in all dermatomal distributions. Straight Leg Raise is Positive on the Left Gait is normal. Assessment/Treatment Plan: Nathalia was seen today for back pain. Diagnoses and all orders for this visit: Lumbar radiculopathy - Ambulatory referral to Neurosurgery; Future Referral - Dr. Jacinto (patient has previously seen) It is felt that due to the severity of the patient s symptoms and lack of response to conservative treatment, surgical options need to be reviewed at this time. Hopefully this will provide more definitive treatment strategies for these symptoms. Follow up as needed The medications prescribed have been reviewed for medication interactions/contraindications and/or for upcoming procedures: continue current medication regimen without any changes. DISCUSSION: Treatment options discussed with patient and all questions answered to patient's satisfaction. Discussed the rules and regulations surrounding prescription of opioids and compliance at length. Failure to follow the rules and regulation will result in tapering and discontinuation of medications if applicable. Prescribed medication that requires intensive monitoring for toxicity We do not currently prescribe any controlled substance from this practice. The spine model was demonstrated and MRI was reviewed and used to explain the condition. Chronic conditions not treated during this visit that affected my overall medical decision making: Diabetes OARRS: Reviewed. Scribe Statement: Scribed for and in the presence of NINO DESOUZA by Luba Duckworth RN. Provider Statement: I, NINO DESOUZA, personally performed the services described in the documentation, as scribed by Luba Duckworth RN in my presence, and it is both accurate and complete. Luba Duckworth RN 09/17/24 1648 Luba Duckworth RN 09/17/24 1650 NINO Desouza 09/22/24 1149 documented in this encounter [facility] 08-26-2024 Miscellaneous Notes Pt was seen yesterday, Jayant prescribed prednisone 20 mg x 4 days, [facility] be [facility] to [facility]. Can you sign so she can get today and I will cancel prescription to [facility]? Informed pt that new script was sent to [facility]. pvu documented in this encounter [facility] 08-26-2024 Telephone encounter Note Pt was seen yesterday, Jayant prescribed prednisone 20 mg x 4 days, [facility] was [facility] but needed to be sent to [facility]. Can you sign so she can get today and I will cancel prescription to [facility]? [facility] 08-26-2024 Telephone encounter Note Informed pt that new script was sent to [facility]. pvu [facility] 08-25-2024 History of Presen t illness Narrative [facility] [address] [place] [address] Patient: Nathalia Patino Sex: female : 1975 Age: 49 y.o. PCP: TRISTON JAMES MD 08/26/2024 Nathalia Patino is here for a(n) follow up after completing a Lumbar spine MRI. Patient reports back currently a 7.5/10 and is worse when going from sitting to standing. Patient states pain goes down posterior bilateral legs. PCP recently prescribed Tizanidine which she stopped taking due to it causing dry mouth, felt like she was choking, and insomnia. Chief Complaint Patient presents with Back Pain HPI: PT/HEP (@ 2019) made worse Back: 06/15/22 Nilesh L 5/1 MBB w/0% relief 07/13/2022 L5/S1 JOHNNIE with 35% relief x 5 days 08/17/2022 caudal JOHNNIE w/ 50% relief for 6 days 11/16/22 Nilesh SI Inj w/75% relief continued 02/15/23 Left SI RFA 75% relief 03/08/23 Right SI RFA 100% relief left SI RFA on 01/31/2024 with 80% relief right SI RFA on 02/28/2024 with 80% improvement Back Pain This is a chronic problem. The current episode started more than 1 year ago. The problem occurs constantly. The problem is unchanged. The pain is present in the lumbar spine, gluteal and sacro-iliac. The quality of the pain is described as aching. Radiates to: Nilesh Hips, posterior bilateral legs. Pain scale: 7.5 currently, does increase when sitting to standing. The pain is severe. The pain is The same all the time. The symptoms are aggravated by bending, standing and sitting (stairs). Stiffness is present In the morning. Pertinent negatives include no abdominal pain, bladder incontinence, bowel incontinence, chest pain, fever, leg pain (posterior aspect og LLE to mid calf, less to posterior aspect of right thigh), numbness, tingling or weakness. Risk factors include obesity. She has tried chiropractic manipulation, heat, ice, NSAIDs and home exercises (PT/HEP (@ 2019), chiropractor, water therapy, massage therapy, [place], ibuprofen/celebrex, Tylenol arthritis, ice/heat, Georgina stone/infrared mat, HEP, lyrica, lidocaine patches, mobic w/mod relief) for the symptoms. The treatment provided moderate relief. The effect of pain on patient's ADLS: Moderate Impairment. Past Medical History: Diagnosis Date Acid reflux Asthma Chronic pain disorder Diabetes mellitus ([facility]) Fibromyalgia Heart murmur Hypertension Hyperthyroidism Kidney stones Low back pain Migraine Osteoarthritis Rheumatoid arthritis ([facility]) Skin cancer 2014 Vulvodynia Past Surgical History: Procedure Laterality Date SECTION COLONOSCOPY 2019 HERNIA MESH REMOVAL INJECTION BLOCK EPIDURAL CAUDAL STEROID N/A 08/17/2022 Performed by Nicko Campbell MD at [facility] INJECTION BLOCK EPIDURAL STEROID LUMBAR/SACRAL L 5/ JOHNNIE N/A 07/13/2022 Performed by Nicko Campbell MD at [facility] INJECTION BLOCK NERVE MEDIAL BRANCH Bilat L 02/11 Bilateral 06/15/2022 Performed by Nicko Campbell MD at [facility] INJECTION BLOCK SACROILIAC JOINT Bilateral 11/16/2022 Performed by Nicko Campbell MD at [facility] KIDNEY STONE SURGERY 2019 LITHOTRIPSY 2009, 2017, 2018, 2019 (x2) RADIOFREQUENCY ABLATION SPINAL LEFT SI Left 02/15/2023 Performed by Nicko Campbell MD at [facility] RADIOFREQUENCY ABLATION SPINAL Right SI Right 03/08/2023 Performed by Nicko Campbell MD at [facility] RADIOFREQUENCY ABLATION SPINAL: left SI Left 01/31/2024 Performed by Nicko Campbell MD at [facility] RADIOFREQUENCY ABLATION SPINAL: right SI Right 02/28/2024 Performed by Nicko Campbell MD at [facility] TONSILLECTOMY URETHRAL DILATION 06/2017 VENTRAL HERNIA REPAIR 06/1997 Allergies Allergen Reactions Bactrim [Sulfamethoxazole-Trimethoprim] Hives Cat Dander Other reaction(s): Mild Other reaction(s): Other: See Comments Other reaction(s): Mild Oxaprozin Hives Sulfamethoxazole Other (See Comments) Doxycycline Rash Family History Problem Relation Age of Onset High Cholesterol Father Hypertension Mother Breast cancer Neg Hx Diabetes Neg Hx Social History Socioeconomic History Marital status: Spouse name: Not on file Number of children: Not on file Years of education: Not on file Highest education level: Not on file Occupational History Not on file Tobacco Use Smoking status: Never Smokeless tobacco: Never Vaping Use Vaping status: Never Used Substance and Sexual Activity Alcohol use: No Drug use: No Sexual activity: Defer Partners: Male control/protection: OCP Other Topics Concern Not on file Social History Narrative Not on file Social Drivers of Health Financial Resource Strain: Low Risk (11/30/2019) [facility] Overall Financial Resource Strain (CARDIA) Difficulty of Paying Living Expenses: Not hard at all Food Insecurity: No Food Insecurity (08/25/2024) Hunger Screening Food Insecurity - Worry: Never True Food Insecurity - Inability: Never True Transportation Needs: No Transportation Needs (11/30/2019) Re[facility] PRAPARE - Transportation Lack of Transportation (Medical): No Lack of Transportation (Non-Medical): No Physical Activity: Inactive (11/24/2019) Received from [facility] Exercise Vital Sign Days of Exercise per Week: 0 days Minutes of Exercise per Session: 0 min Stress: No Stress Concern Present (11/24/2019) Received from [facility] [place] [employer] - Occupational Stress Questionnaire Feeling of Stress : Only a little Social Connections: Socially Integrated (11/24/2019) Received from [facility] Social Connection and Isolation Panel [NHANES] Frequency of Communication with Friends and Family: More than three times a week Frequency of Social Gatherings with Friends and Family: Twice a week Attends Yazidi Services: 1 to 4 times per year Active Member of Clubs or Organizations: Yes Attends Club or Organization Meetings: 1 to 4 times per year Marital Status: Interpersonal Safety: Not on file Housing Instability: Not on file Review of Systems Constitutional: Negative. Negative for chills and fever. HENT: Negative. Negative for congestion and sore throat. Eyes: Negative. Respiratory: Negative. Negative for cough and shortness of breath. Cardiovascular: Negative. Negative for chest pain. Gastrointestinal: Negative for abdominal pain and bowel incontinence. Endocrine: Negative. Genitourinary: Negative. Negative for bladder incontinence. Musculoskeletal: Positive for back pain. Skin: Negative. Allergic/Immunologic: Negative. Neurological: Negative. Negative for tingling, weakness and numbness. Hematological: Negative. Psychiatric/Behavioral: Negative. Vital Signs: BP 126/76 (BP Site: Right Arm, BP Postition: Sitting) Pulse 80 Resp 18 Ht 149.9 cm (4' 11 ) Wt 66.2 kg (146 lb) SpO2 100% BMI 29.49 kg/m Physical Exam: GENERAL - Healthy patient that appears stated age. HEENT - Normocephalic / Atraumatic, Extraoccular movements intact, trachea midline, thyroid within normal limits. CV - pulse regular, Warm extremities with appropriate color of nailbeds. RESP - No obvious wheezing, No Shortness of Breath, No overexertion response to exam maneuvers. COORDINATION - remains intact. PSYCH - Alert and Oriented x4, Attentive and appropriate, constitutionally normal, displays normal mood and affect per situation, answered questions appropriately during examination, demonstrated appropriate attention during discussion, demonstrated appropriate cognitive reasoning and understanding of the medical condition by asking appropriate questions regarding the diagnosis and risks/benefits/alternatives of treatment modalities. No obvious deficits in memory, reasoning, or intellect. Lumbar: SKIN - No rashes or bruising in the area of the patient s pain. LYMPH NODES - demonstrate no obvious enlargement. EXTREMITIES - Lower extremities are warm, with minimal edema and palpable pulses. Tenderness to palpation noted in the lumbar spine and paraspinal musculature. Pain is elicited with flexion, extension, and lateral rotation of the lumbar spine. Range of motion is diminished with these motions due to pain. Facet palpation is noted to be somewhat tender and facet loading maneuvers are mildly positive, but not concordant with the patient s normal pain complaints. STRENGTH - noted to be 5 out of 5 all muscle groups bilateral lower extremities including muscles involving hip flexion and abduction, knee flexion and extension, as well as foot dorsiflexion and plantarflexion. No notable atrophy, fasciculations or spasm. SENSORY - No notable sensory deficits in the bilateral lower extremities to touch or pinprick in all dermatomal distributions. Straight Leg Raise is Positive on the Left Gait is normal. Assessment/Treatment Plan: Nathalia was seen today for back pain. Diagnoses and all orders for this visit: Lumbar radiculopathy - Case request operating room: INJECTION SPINE TRANSFORAMINAL: left [id number] Other orders - meloxicam (MOBIC) 15 mg tablet; Take 1 tablet (15 mg total) by mouth in the morning. - Discontinue: predniSONE (DELTASONE) 20 mg tablet; Take 1 tablet (20 mg total) by mouth in the morning. Refill Mobic 15 mg daily and begin Prednisone 20 mg daily X 4 days With Regard to medication management, it is felt that the patient would benefit from the changes mentioned above. This should provide symptomatic pain relief as part of the comprehensive pain management strategy outlined. Risks, Benefits, Side effects, and possible interactions of these medications were reviewed and the medication agreement has been discussed, agreed upon, and signed. The patient understands compliance concerns and the requirement of pill counts and drug screens while taking medications prescribed by this clinic. Left L5, S1 Nerve Root Injection - under fluoroscopy with the use of contrast dye (unless contraindicated) It is hopeful that the described procedure will provide symptomatic pain relief. It is felt to be medically necessary noting that the patient has tried and failed more conservative modalities of therapy and this is the next most appropriate step. The procedure was described in detail to the patient as well as the potential benefits of pain reduction alongside risks of the procedure and alternatives. Risks were described as including, but not limited to bleeding, infection, nerve damage, spinal cord injury, paralysis, stroke, dural puncture headache, and medication reaction. The patient expressed understanding regarding the risks and benefits and wishes to proceed. It was explained that Nerve Root Injections and Transforaminal Epidural Injections often require a series of 2-3 before significant relief is noted, but we will determine after each injection if another one is indicated. Depending on the amount and duration of relief obtained from the injection, additional modalities of therapy including medications and physical therapy may need to be utilized alongside or following the injections. Follow up 2 weeks after procedure The medications I have prescribed have been reviewed for medication interactions/contraindications and/or for upcoming procedures: continue current medication regimen without any changes. DISCUSSION: Treatment options discussed with patient and all questions answered to patient's satisfaction. The patient has been instructed as to the type of medication prescribed along with directions for use. Potential side effects have been discussed, along with risks and benefits of taking this medication. (S)he was instructed as to what to do if (s)he experiences side effects, including when to discontinue the medication. (S)he was advised to call this office in this event. Also discussed at length safety and security of RX and medications. Prescribed medication that requires intensive monitoring for toxicity We do not currently prescribe any controlled substance from this practice. Treatment plans discussed but not opted for at this time: Neurosurgical consult. Patient would like to proceed with the current outlined treatment plan before moving forward with any other options. The spine model was demonstrated and MRI was reviewed and used to explain the condition. Chronic conditions not treated during this visit that affected my overall medical decision making: Comorbidity- Diabetes The patient has a history of diabetes mellitus currently managed with medications. This will need to be considered prior to any procedure that would require the injection of steroid in that the patient may experience a transient increase in glucose as a result. Additional consideration will need to be given to timing the procedure early in the morning in that the patient will need to be fasting prior to the administration of anesthesia. Every effort will be made to perform the procedure as a 1st case due to this condition. And the patient will be instructed to hold their diabetic medications on that morning. If necessary, a blood glucose test can also be performed that morning. The risks/ benefits/ and alternatives will be weighed and explained to the patient prior to any procedure. OARRS: Reviewed. Scribe Statement: Scribed for and in the presence of NINO DESOUZA by Reanna Holt CNA. Provider Statement: I, NINO DESOUZA, personally performed the services described in the documentation, as scribed by Reanna Holt CNA in my presence, and it is both accurate and complete. Reanna Holt CNA 08/25/24 1542 Reanna Holt CNA 08/26/24 1200 NINO Desouza 09/03/24 1219 documented in this encounter [facility] [email or web address] 08-25-2024 Instructions Reanna Holt CNA - 08/25/2024 3:00 PM EST Epidural Steroid Injection (JOHNNIE) / Nerve Root Injection / Nerve Block These procedure(s) involve the injection of a steroid and anesthetic into the epidural space or the nerve sheath that is both diagnostic and potentially therapeutic for alleviating discomfort of the legs and arms secondary to compression of the respective nerves due to bulging discs, bone spurs and other potential causes. Steroids are potent anti-inflammatory drugs that act to decrease the swollen and inflamed nerves thus relieving your clinical symptoms. How Long Will This Procedure Last? The extent and duration of pain relief may depend on the amount of inflammation and how many areas are involved. Other coexisting factors may be responsible for your pain. You and your physician will discuss expected results of procedure(s). After Your Injection You may experience soreness and tenderness at the area of treatment. This pain may not occur until later today after the numbing medicine wears off. The steroid can take 3-5 days to work and provide noticeable improvement. Activity You may feel temporary numbness, weakness or tingling: In the neck, arm, or fingertips (if your procedure was done in your neck) In the legs (if your procedure was done in your lower back) These symptoms are normal, and should subside within 3-4 hours. In that time, be careful to avoid falls. As a safety precaution, you must have a pile driver engineer after a lumbar nerve root injection, even if you do not receive sedation. Resume activity as tolerated when function has returned. Medications Resume your routine medications after your procedure. You may resume blood thinners per your regular schedule after the procedure. If you received sedation: If you received sedation for your procedure, you may feel sleepy or not yourself for several hours today. For the next 24 hours avoid activities that requires alertness or coordination. This includes: Driving or operating heavy machinery Using power tools Consuming alcohol Do not make important or complex decisions or sign legal documents in the next 24 hours. Other Instructions: If you feel severe pain at the injection site with swelling and redness, increased leg weakness, a fever of 101 or higher, headache (or worsening headache), changes in vision or urinary retention: Please call the office at , or have someone take you to the nearest emergency room. Tell the emergency room staff that you recently had a spine injection. A doctor must evaluate you for bleeding and injection complications. If you lose control over bowel, bladder, or legs: Go to the nearest emergency room. If you are diabetic, the steroids used in this procedure can increase your blood sugar. If your blood sugar is 250mg/dL or higher, contact your primary care physician, or the doctor who manages your diabetes, to discuss how to get it back to normal. documented in this encounter [facility] 08-04-2024 Miscellaneous Notes Prior auth is being denied. Called insurance and they state that they need imagine that was completed within the last 6 months. Most recent imaging is from 2021. Appeal and P2P possible. How do you want to proceed? Ok to order L MRI without. F/u after mri and can re-order. Please make pt aware Order pended for lumbar MRI without contrast. Please review and sign. Call placed to patient to inform her of plan. Patient had some questions related to conversation with Selma earlier today. Selma picked up call and spoke with patient and confirmed that Jayant indeed wants lumbar MRI ordered and then follow up in office afterwards. signed documented in this encounter [facility] 08-04-2024 Telephone encounter Note Prior auth is being denied. Called insurance and they state that they need imagine that was completed within the last 6 months. Most recent imaging is from 2021. Appeal and P2P possible. How do you want to proceed? [facility] 08-04-2024 Telephone encounter Note Ok to order L MRI without. F/u after mri and can re-order. Please make pt aware [facility] 08-04-2024 Telephone encounter Note Order pended for lumbar MRI without contrast. Please review and sign. Call placed to patient to inform her of plan. Patient had some questions related to conversation with Selma earlier today. Selma picked up call and spoke with patient and confirmed that Jayant indeed wants lumbar MRI ordered and then follow up in office afterwards. [facility] 08-04-2024 Telephone encounter Note signed [facility] 07-23-2024 History of Presen t illness Narrative [facility] [address] [place] [address] Patient: Nathalia Patino Sex: female : 1975 Age: 49 y.o. PCP: TRISTON JAMES MD 07/23/2024 Nathalia Patino is here for a(n) follow up for low back pain that radiates down posterior aspect of bilateral lower extremities (left is worse than right). Chief Complaint Patient presents with Back Pain HPI: PT/HEP (@ 2019) made worse Back: 06/15/22 Nilesh L 5/ MBB w/0% relief 07/13/2022 L5/S1 JOHNNIE with 35% relief x 5 days 08/17/2022 caudal JOHNNIE w/ 50% relief for 6 days 11/16/22 Nilesh SI Inj w/75% relief continued 02/15/23 Left SI RFA 75% relief 03/08/23 Right SI RFA 100% relief left SI RFA on 01/31/2024 with 80% relief right SI RFA on 02/28/2024 with 80% improvement Back Pain This is a chronic problem. The current episode started more than 1 year ago. The problem occurs constantly. The problem has been gradually improving since onset. The pain is present in the lumbar spine, gluteal and sacro-iliac. The quality of the pain is described as aching. Radiates to: Nilesh Hips. The pain is at a severity of 8/10 (left side. Right side 3/10). The pain is severe. The pain is Worse during the night. The symptoms are aggravated by bending, standing and sitting (stairs). Stiffness is present In the morning. Pertinent negatives include no bladder incontinence, bowel incontinence, chest pain, fever, leg pain (posterior aspect og LLE to mid calf, less to posterior aspect of right thigh), numbness, tingling or weakness. Risk factors include obesity. She has tried chiropractic manipulation, heat, ice, NSAIDs and home exercises (PT/HEP (@ 2019), chiropractor, water therapy, massage therapy, [place], ibuprofen/celebrex, Tylenol arthritis, ice/heat, Georgina stone/infrared mat, HEP, lyrica, lidocaine patches, mobic w/mod relief) for the symptoms. The treatment provided moderate relief. The effect of pain on patient's ADLS: Severe Impairment. Past Medical History: Diagnosis Date Acid reflux Asthma Chronic pain disorder Diabetes mellitus ([facility]) Fibromyalgia Heart murmur Hypertension Hyperthyroidism Kidney stones Low back pain Migraine Osteoarthritis Rheumatoid arthritis ([facility]) Skin cancer 2014 Vulvodynia Past Surgical History: Procedure Laterality Date SECTION COLONOSCOPY 2019 HERNIA MESH REMOVAL INJECTION BLOCK EPIDURAL CAUDAL STEROID N/A 08/17/2022 Performed by Nicko Campbell MD at [facility] INJECTION BLOCK EPIDURAL STEROID LUMBAR/SACRAL L 02/11 JOHNNIE N/A 07/13/2022 Performed by Nicko Campbell MD at [facility] INJECTION BLOCK NERVE MEDIAL BRANCH Bilat L 02/11 Bilateral 06/15/2022 Performed by Nicko Campbell MD at [facility] INJECTION BLOCK SACROILIAC JOINT Bilateral 11/16/2022 Performed by Nicko Campbell MD at [facility] KIDNEY STONE SURGERY 2019 LITHOTRIPSY 2008, 2017, 2018, 2019 (x2) RADIOFREQUENCY ABLATION SPINAL LEFT SI Left 02/15/2023 Performed by Nicko Campbell MD at [facility] RADIOFREQUENCY ABLATION SPINAL Right SI Right 03/08/2023 Performed by Nicko Campbell MD at [facility] RADIOFREQUENCY ABLATION SPINAL: left SI Left 01/31/2024 Performed by Nicko Campbell MD at [facility] RADIOFREQUENCY ABLATION SPINAL: right SI Right 02/28/2024 Performed by Nicko Campbell MD at [facility] TONSILLECTOMY URETHRAL DILATION 06/2017 VENTRAL HERNIA REPAIR 06/1997 Allergies Allergen Reactions Bactrim [Sulfamethoxazole-Trimethoprim] Hives Cat Dander Other reaction(s): Mild Other reaction(s): Other: See Comments Other reaction(s): Mild Oxaprozin Hives Sulfamethoxazole Other (See Comments) Doxycycline Rash Family History Problem Relation Age of Onset High Cholesterol Father Hypertension Mother Breast cancer Neg Hx Diabetes Neg Hx Social History Socioeconomic History Marital status: Spouse name: Not on file Number of children: Not on file Years of education: Not on file Highest education level: Not on file Occupational History Not on file Tobacco Use Smoking status: Never Smokeless tobacco: Never Vaping Use Vaping status: Never Used Substance and Sexual Activity Alcohol use: No Drug use: No Sexual activity: Defer Partners: Male control/protection: OCP Other Topics Concern Not on file Social History Narrative Not on file Social Determinants of Health Financial Resource Strain: Low Risk (11/30/2019) [facility] Overall Financial Resource Strain (CARDIA) Difficulty of Paying Living Expenses: Not hard at all Food Insecurity: No Food Insecurity (07/23/2024) Hunger Screening Food Insecurity - Worry: Never True Food Insecurity - Inability: Never True Transportation Needs: No Transportation Needs (11/30/2019) Received from [facility] PRAPARE - Transportation Lack of Transportation (Medical): No Lack of Transportation (Non-Medical): No Physical Activity: Inactive (11/24/2019) Received from [facility] Exercise Vital Sign Days of Exercise per Week: 0 days Minutes of Exercise per Session: 0 min Stress: No Stress Concern Present (11/24/2019) Received from [facility] [place] [employer] - Occupational Stress Questionnaire Feeling of Stress : Only a little Social Connections: Socially Integrated (11/24/2019) Received from [facility] Social Connection and Isolation Panel [NHANES] Frequency of Communication with Friends and Family: More than three times a week Frequency of Social Gatherings with Friends and Family: Twice a week Attends Yazidi Services: 1 to 4 times per year Active Member of Clubs or Organizations: Yes Attends Club or Organization Meetings: 1 to 4 times per year Marital Status: Interpersonal Safety: Not on file Housing Instability: Not on file Review of Systems Constitutional: Negative for fever. HENT: Negative. Eyes: Negative. Respiratory: Negative. Cardiovascular: Negative for chest pain. Gastrointestinal: Negative. Negative for bowel incontinence. Genitourinary: Negative. Negative for bladder incontinence. Musculoskeletal: Positive for back pain. Skin: Negative. Neurological: Negative for tingling, weakness and numbness. Psychiatric/Behavioral: Negative. Vital Signs: BP 121/75 Pulse 73 Resp 16 Wt 66.2 kg (146 lb) SpO2 100% BMI 29.49 kg/m Physical Exam: GENERAL - Healthy patient that appears stated age. HEENT - Normocephalic / Atraumatic, Extraoccular movements intact, trachea midline, thyroid within normal limits. CV - pulse regular, Warm extremities with appropriate color of nailbeds. RESP - No obvious wheezing, No Shortness of Breath, No overexertion response to exam maneuvers. COORDINATION - remains intact. PSYCH - Alert and Oriented x4, Attentive and appropriate, constitutionally normal, displays normal mood and affect per situation, answered questions appropriately during examination, demonstrated appropriate attention during discussion, demonstrated appropriate cognitive reasoning and understanding of the medical condition by asking appropriate questions regarding the diagnosis and risks/benefits/alternatives of treatment modalities. No obvious deficits in memory, reasoning, or intellect. Lumbar: SKIN - No rashes or bruising in the area of the patient s pain. LYMPH NODES - demonstrate no obvious enlargement. EXTREMITIES - Lower extremities are warm, with minimal edema and palpable pulses. Tenderness to palpation noted in the lumbar spine and paraspinal musculature. Pain is elicited with flexion, extension, and lateral rotation of the lumbar spine. Range of motion is diminished with these motions due to pain. Facet palpation is noted to be somewhat tender and facet loading maneuvers are mildly positive, but not concordant with the patient s normal pain complaints. STRENGTH - noted to be 5 out of 5 all muscle groups bilateral lower extremities including muscles involving hip flexion and abduction, knee flexion and extension, as well as foot dorsiflexion and plantarflexion. No notable atrophy, fasciculations or spasm. SENSORY - No notable sensory deficits in the bilateral lower extremities to touch or pinprick in all dermatomal distributions. Straight Leg Raise is Positive on the Left Gait is normal. Assessment/Treatment Plan: Nathalia was seen today for back pain. Diagnoses and all orders for this visit: Lumbar radiculopathy - Case request operating room: INJECTION SPINE TRANSFORAMINAL: left L51 Left L5,1 Nerve Root Injection - under fluoroscopy with the use of contrast dye (unless contraindicated) It is hopeful that the described procedure will provide symptomatic pain relief. It is felt to be medically necessary noting that the patient has tried and failed more conservative modalities of therapy and this is the next most appropriate step. The procedure was described in detail to the patient as well as the potential benefits of pain reduction alongside risks of the procedure and alternatives. Risks were described as including, but not limited to bleeding, infection, nerve damage, spinal cord injury, paralysis, stroke, dural puncture headache, and medication reaction. The patient expressed understanding regarding the risks and benefits and wishes to proceed. It was explained that Nerve Root Injections and Transforaminal Epidural Injections often require a series of 2-3 before significant relief is noted, but we will determine after each injection if another one is indicated. Depending on the amount and duration of relief obtained from the injection, additional modalities of therapy including medications and physical therapy may need to be utilized alongside or following the injections. Follow up 2 weeks after procedure The medications prescribed have been reviewed for medication interactions/contraindications and/or for upcoming procedures: continue current medication regimen without any changes. DISCUSSION: Treatment options discussed with patient and all questions answered to patient's satisfaction. Discussed the rules and regulations surrounding prescription of opioids and compliance at length. Failure to follow the rules and regulation will result in tapering and discontinuation of medications if applicable. Prescribed medication that requires intensive monitoring for toxicity We do not currently prescribe any controlled substance from this practice. Treatment plans discussed but not opted for at this time: Lumbar MRI. Patient would like to proceed with the current outlined treatment plan before moving forward with any other options. The spine model was demonstrated and MRI was reviewed and used to explain the condition. Chronic conditions not treated during this visit that affected my overall medical decision making: Comorbidity- Diabetes The patient has a history of diabetes mellitus currently managed with medications. This will need to be considered prior to any procedure that would require the injection of steroid in that the patient may experience a transient increase in glucose as a result. Additional consideration will need to be given to timing the procedure early in the morning in that the patient will need to be fasting prior to the administration of anesthesia. Every effort will be made to perform the procedure as a 1st case due to this condition. And the patient will be instructed to hold their diabetic medications on that morning. If necessary, a blood glucose test can also be performed that morning. The risks/ benefits/ and alternatives will be weighed and explained to the patient prior to any procedure. OARRS: Reviewed. Scribe Statement: Scribed for and in the presence of NINO DESOUZA by Reanna Holt CNA. Provider Statement: I, NINO DESOUZA, personally performed the services described in the documentation, as scribed by Reanna Holt CNA in my presence, and it is both accurate and complete. Reanna Holt CNA 07/23/24 1411 NINO Desouza 07/30/24 0942 documented in this encounter [facility] 07-23-2024 Instructions Reanna Holt CNA - 07/23/2024 1:15 PM EDT Epidural Steroid Injection (JOHNNIE) / Nerve Root Injection / Nerve Block These procedure(s) involve the injection of a steroid and anesthetic into the epidural space or the nerve sheath that is both diagnostic and potentially therapeutic for alleviating discomfort of the legs and arms secondary to compression of the respective nerves due to bulging discs, bone spurs and other potential causes. Steroids are potent anti-inflammatory drugs that act to decrease the swollen and inflamed nerves thus relieving your clinical symptoms. How Long Will This Procedure Last? The extent and duration of pain relief may depend on the amount of inflammation and how many areas are involved. Other coexisting factors may be responsible for your pain. You and your physician will discuss expected results of procedure(s). After Your Injection You may experience soreness and tenderness at the area of treatment. This pain may not occur until later today after the numbing medicine wears off. The steroid can take 3-5 days to work and provide noticeable improvement. Activity You may feel temporary numbness, weakness or tingling: In the neck, arm, or fingertips (if your procedure was done in your neck) In the legs (if your procedure was done in your lower back) These symptoms are normal, and should subside within 3-4 hours. In that time, be careful to avoid falls. As a safety precaution, you must have a pile driver engineer after a lumbar nerve root injection, even if you do not receive sedation. Resume activity as tolerated when function has returned. Medications Resume your routine medications after your procedure. You may resume blood thinners per your regular schedule after the procedure. If you received sedation: If you received sedation for your procedure, you may feel sleepy or not yourself for several hours today. For the next 24 hours avoid activities that requires alertness or coordination. This includes: Driving or operating heavy machinery Using power tools Consuming alcohol Do not make important or complex decisions or sign legal documents in the next 24 hours. Other Instructions: If you feel severe pain at the injection site with swelling and redness, increased leg weakness, a fever of 101 or higher, headache (or worsening headache), changes in vision or urinary retention: Please call the office at , or have someone take you to the nearest emergency room. Tell the emergency room staff that you recently had a spine injection. A doctor must evaluate you for bleeding and injection complications. If you lose control over bowel, bladder, or legs: Go to the nearest emergency room. If you are diabetic, the steroids used in this procedure can increase your blood sugar. If your blood sugar is 250mg/dL or higher, contact your primary care physician, or the doctor who manages your diabetes, to discuss how to get it back to normal. documented in this encounter [facility] 02-24-2024 Hospital Discharg e instructions Patient Education 02/24/2024 08:17:32 Dietary Guidelines to Help Prevent Kidney Stones Dietary Guidelines to Help Prevent Kidney Stones Kidney stones are deposits of minerals and salts that form inside your kidneys. Your risk of developing kidney stones may be greater depending on your diet, your lifestyle, the medicines you take, and whether you have certain medical conditions. Most people can lower their risks of developing kidney stones by following these dietary guidelines. Your dietitian may give you more specific instructions depending on your overall health and the type of kidney stones you tend to develop. What are tips for following this plan? Reading food labels Choose foods with no salt added or low-salt labels. Limit your salt (sodium) intake to less than 1,500 mg a day. Choose foods with calcium for each meal and snack. Try to eat about 300 mg of calcium at each meal. Foods that contain 200 500 mg of calcium a serving include: ?8 oz (237 mL) of milk, [id number] milk, and calcium-fortifiedfruit juice. Calcium-fortified means that calcium has been added to these drinks. ?8 oz (237 mL) of kefir, yogurt, and soy yogurt. ?4 oz (114 g) of tofu. ?1 oz (28 g) of cheese. ?1 cup (150 g) of dried figs. ?1 cup (91 g) of cooked broccoli. ?One 3 oz (85 g) can of sardines or mackerel. Most people need 1,000 1,500 mg of calcium a day. Talk to your dietitian about how much calcium is recommended for you. Shopping Buy plenty of fresh fruits and vegetables. Most people do not need to avoid fruits and vegetables, even if these foods contain nutrients that may contribute to kidney stones. When shopping for convenience foods, choose: ?Whole pieces of fruit. ?Pre-made salads with dressing on the side. ?Low-fat fruit and yogurt smoothies. Avoid buying frozen meals or prepared deli foods. These can be high in sodium. Look for foods with live cultures, such as yogurt and kefir. Choose high-fiber grains, such as whole-wheat breads, oat bran, and wheat cereals. Cooking Do not add salt to food when cooking. Place a salt shaker on the table and allow each person to add their own salt to taste. Use vegetable protein, such as beans, textured vegetable protein (TVP), or tofu, instead of meat in pasta, casseroles, and soups. Meal planning Eat less salt, if told by your dietitian. To do this: ?Avoid eating processed or pre-made food. ?Avoid eating fast food. Eat less animal protein, including cheese, meat, poultry, or fish, if told by your dietitian. To do this: ?Limit the number of times you have meat, poultry, fish, or cheese each week. Eat a diet free of meat at least 2 days a week. ?Eat only one serving each day of meat, poultry, fish, or seafood. ?When you prepare animal proteins, cut pieces into small portion sizes. For most meat and fish, one serving is about the size of the palm of your hand. Eat at least five servings of fresh fruits and vegetables each day. To do this: ?Keep fruits and vegetables on hand for snacks. ?Eat one piece of fruit or a handful of berries with breakfast. ?Have a salad and fruit at lunch. ?Have two kinds of vegetables at dinner. You may be told to limit foods that are high in a substance called oxalate. These include: ?Spinach (cooked), rhubarb, beets, sweet potatoes, and Filipino chard. ?Peanuts. ?Potato chips, belarusian fries, and baked potatoes with skin on. ?Nuts and nut products. ?Chocolate. If you regularly take a diuretic medicine, make sure to eat at least 1 or 2 servings of fruits or vegetables that are high in potassium each day. These include: ?Avocado. ?Banana. ?[place], prune, carrot, or tomato juice. ?Baked potato. ?Cabbage. ?Beans and split peas. Lifestyle Drink enough fluid to keep your urine pale yellow. This is the most important thing you can do. Spread your fluid intake throughout the day. If you drink alcohol: ?Limit how much you have to: ?0 1 drink a day for women who are not . ?0 2 drinks a day for men. ?Know how much alcohol is in your drink. In the [place] one drink equals one 12 oz bottle of beer (355 mL), one 5 oz glass of wine (148 mL), or one 1 oz glass of hard liquor (44 mL). Lose weight if told by your health care provider. Work with your dietitian to find an eating plan and weight loss strategies that work best for you. General information Talk to your health care provider and dietitian about taking daily supplements. Depending on your health and the cause of your kidney stones, you may be told: ?Do not take high-dose supplements of vitamin C (1,000 mg a day or more). ?To take a calcium supplement. ?To take a daily probiotic supplement. ?To take other supplements such as magnesium, fish oil, or vitamin B6. Take kkjf-aca-vcmmnqm and prescription medicines only as told by your health care provider. These include supplements. What foods should I limit? Limit your intake of the following foods, or eat them as told by your dietitian. Vegetables Spinach. Rhubarb. Beets. Canned vegetables. Pickles. Olives. Baked potatoes with skin. Grains Wheat bran. Baked goods. Salted crackers. Cereals high in sugar. Meats and other proteins Nuts. Nut butters. Large portions of meat, poultry, or fish. Salted, precooked, or cured meats, such as sausages, meat loaves, and hot dogs. Dairy Cheeses. Beverages Regular soft drinks. Regular vegetable juice. Seasonings and condiments Seasoning blends with salt. Salad dressings. Soy sauce. Ketchup. Barbecue sauce. Other foods Canned soups. Canned pasta sauce. Casseroles. Pizza. Lasagna. Frozen meals. Potato chips. [place] fries. The items listed above may not be a complete list of foods and beverages you should limit. Contact a dietitian for more information. What foods should I avoid? Talk to your dietitian about specific foods you should avoid based on the type of kidney stones you have and your overall health. Fruits Grapefruit. The item listed above may not be a complete list of foods and beverages you should avoid. Contact a dietitian for more information. Summary Kidney stones are deposits of minerals and salts that form inside your kidneys. You can lower your risk of kidney stones by making changes to your diet. The most important thing you can do is drink enough fluid. Drink enough fluid to keep your urine pale yellow. Talk to your dietitian about how much calcium you should have each day, and eat less salt and animal protein as told by your dietitian. This information is not intended to replace advice given to you by your health care provider. Make sure you discuss any questions you have with your health care provider. Document Revised: 01/10/2023 Document Reviewed: 01/10/2023 [employer] Patient Education 2022 [employer] book. Follow Up Care 02/18/2023 08:45:58 With:CAREN LARSEN, Kang P, URL Address: [address] [place] [address]- When: Unknown [facility] 01-21-2024 Hospital Discharg e instructions Ambulatory OrdersReferral to Diabetes Management Time Frame: 01/21/24, Location: [facility] Work Phone: 11-26-2023 History of Presen t illness Narrative [facility] [address] [place] [address] Patient: Nathalia Patino Sex: female : 1975 Age: 48 y.o. PCP: TRISTON JAMES MD 11/26/2023 Nathalia Montaño Patino is here for a(n) follow up. Chief Complaint Patient presents with Back Pain HPI: PT/HEP (@ 2019) made worse Back: 06/15/22 Nilesh L 5/1 MBB w/0% relief 07/13/2022 L5/S1 JOHNNIE with 35% relief x 5 days 08/17/2022 caudal JOHNNIE w/ 50% relief for 6 days 11/16/22 Nilesh SI Inj w/75% relief continued 02/15/23 Left SI RFA 75% relief 03/08/23 Right SI RFA 100% relief Back Pain This is a chronic problem. The current episode started more than 1 year ago. The problem occurs constantly. The problem is unchanged. The pain is present in the lumbar spine, gluteal and sacro-iliac (Lt > Rt). The quality of the pain is described as aching. Radiates to: Nilesh Hips. The pain is at a severity of 5/10 (morning 8/10, current 5/10, evening 8/10). The pain is moderate. The pain is Worse during the day. Exacerbated by: sitting, standing, bending, lifting, twisting, pulling, cough/sneeze, transitioning, cold. Stiffness is present At night and in the morning. Pertinent negatives include no bladder incontinence, bowel incontinence, chest pain, fever, leg pain, numbness, tingling or weakness. She has tried chiropractic manipulation, heat, ice, NSAIDs and home exercises (PT/HEP (@ 2019), chiropractor, water therapy, massage therapy, [place], ibuprofen/celebrex, Tylenol arthritis, ice/heat, Georgina stone/infrared mat, HEP, lyrica, lidocaine patches, mobic w/mod relief) for the symptoms. The treatment provided moderate relief. The effect of pain on patient's ADLS: Moderate Impairment. Past Medical History: Diagnosis Date Acid reflux Asthma Chronic pain disorder Diabetes mellitus ([facility]) Fibromyalgia Heart murmur Hypertension Hyperthyroidism Kidney stones Low back pain Migraine Osteoarthritis Rheumatoid arthritis ([facility]) Skin cancer 2014 Vulvodynia Past Surgical History: Procedure Laterality Date SECTION COLONOSCOPY 2019 HERNIA MESH REMOVAL INJECTION BLOCK EPIDURAL CAUDAL STEROID N/A 08/17/2022 Performed by Nicko Campbell MD at [facility] INJECTION BLOCK EPIDURAL STEROID LUMBAR/SACRAL L 02/11 JOHNNIE N/A 07/13/2022 Performed by Nicko Campbell MD at [facility] INJECTION BLOCK NERVE MEDIAL BRANCH Bilat L 02/11 Bilateral 06/15/2022 Performed by Nicko Campbell MD at [facility] INJECTION BLOCK SACROILIAC JOINT Bilateral 11/16/2022 Performed by Nicko Campbell MD at [facility] KIDNEY STONE SURGERY 2019 LITHOTRIPSY 2008, 2017, 2018, 2019 (x2) RADIOFREQUENCY ABLATION SPINAL LEFT SI Left 02/15/2023 Performed by Nicko Campbell MD at [facility] RADIOFREQUENCY ABLATION SPINAL Right SI Right 03/08/2023 Performed by Nicko Campbell MD at [facility] TONSILLECTOMY URETHRAL DILATION 06/2017 VENTRAL HERNIA REPAIR 06/1997 Allergies Allergen Reactions Bactrim [Sulfamethoxazole-Trimethoprim] Hives Cat Dander Other reaction(s): Mild Other reaction(s): Other: See Comments Other reaction(s): Mild Oxaprozin Hives Sulfamethoxazole Other (See Comments) Doxycycline Rash Family History Problem Relation Age of Onset High Cholesterol Father Hypertension Mother Breast cancer Neg Hx Diabetes Neg Hx Social History Socioeconomic History Marital status: Spouse name: Not on file Number of children: Not on file Years of education: Not on file Highest education level: Not on file Occupational History Not on file Tobacco Use Smoking status: Never Smokeless tobacco: Never Vaping Use Vaping Use: Never used Substance and Sexual Activity Alcohol use: No Drug use: No Sexual activity: Yes Partners: Male control/protection: OCP Other Topics Concern Not on file Social History Narrative Not on file Social Determinants of Health Financial Resource Strain: Not on file Food Insecurity: No Food Insecurity (11/26/2023) Hunger Screening Food Insecurity - Worry: Never True Food Insecurity - Inability: Never True Transportation Needs: Not on file Physical Activity: Not on file Stress: Not on file Social Connections: Not on file Interpersonal Safety: Not on file Housing Instability: Not on file Review of Systems Constitutional: Negative for fever. HENT: Negative. Eyes: Negative. Respiratory: Negative. Cardiovascular: Negative for chest pain. Gastrointestinal: Negative for bowel incontinence. Endocrine: Negative. Genitourinary: Negative. Negative for bladder incontinence. Musculoskeletal: Positive for back pain. Skin: Negative. Neurological: Negative for tingling, weakness and numbness. Vital Signs: BP (!) 143/95 (BP Site: Right Arm, BP Postition: Sitting) Pulse 83 Resp 18 Ht 149.9 cm (4' 11 ) Wt 77.1 kg (170 lb) SpO2 100% BMI 34.34 kg/m Physical Exam: GENERAL - Healthy patient that appears stated age. HEENT - Normocephalic / Atraumatic, Extraoccular movements intact, trachea midline, thyroid within normal limits. CV - pulse regular, Warm extremities with appropriate color of nailbeds. RESP - No obvious wheezing, No Shortness of Breath, No overexertion response to exam maneuvers. COORDINATION - remains intact. PSYCH - Alert and Oriented x4, Attentive and appropriate, constitutionally normal, displays normal mood and affect per situation, answered questions appropriately during examination, demonstrated appropriate attention during discussion, demonstrated appropriate cognitive reasoning and understanding of the medical condition by asking appropriate questions regarding the diagnosis and risks/benefits/alternatives of treatment modalities. No obvious deficits in memory, reasoning, or intellect. Lumbar: SKIN - No rashes or bruising in the area of the patient s pain. LYMPH NODES - demonstrate no obvious enlargement. EXTREMITIES - Lower extremities are warm, with minimal edema and palpable pulses. No significant tenderness to palpation noted in the lumbar spine and paraspinal musculature. Mild pain is elicited with flexion, extension, and lateral rotation of the lumbar spine. Range of motion is not diminished with these motions. Facet palpation is negative for significant pain and facet loading maneuvers elicit only mild pain that is not concordant with the patient s normal pain complaints. STRENGTH - noted to be 5 out of 5 all muscle groups bilateral lower extremities including muscles involving hip flexion and abduction, knee flexion and extension, as well as foot dorsiflexion and plantarflexion. No notable atrophy, fasciculations or spasm. SENSORY - No notable sensory deficits in the bilateral lower extremities to touch or pinprick in all dermatomal distributions. Straight Leg Raise is negative bilaterally. Tenderness to palpation is noted over the Bilateral SacroIliac Joint: Fabere sign (Grant's Test) is significantly positive, as is compression and distraction of the sacroiliac joints, which is consistent with some of the patient's normal pain. Gait is normal. Assessment/Treatment Plan: Nathalia was seen today for back pain. Diagnoses and all orders for this visit: Disorder of sacrum - Case request operating room: RADIOFREQUENCY ABLATION SPINAL: left SI - Case request operating room: RADIOFREQUENCY ABLATION SPINAL: right SI Left then Right Sacroiliac Joint Radiofrequency Ablation - under fluoroscopy It is hopeful that the described procedure will provide symptomatic pain relief. It is felt to be medically necessary noting that the patient has tried and failed more conservative modalities of therapy and this is the next most appropriate step. The procedure was described in detail to the patient as well as the potential benefits of pain reduction alongside risks of the procedure and alternatives. Risks were described as including, but not limited to bleeding, infection, nerve damage, spinal cord injury, paralysis, stroke, dural puncture headache, and medication reaction. The patient expressed understanding regarding the risks and benefits and wishes to proceed. The patient has undergone diagnostic SI joint injections targeting the above mentioned joints. There was significant improvement in the patient s pain and functionality for the duration of the local anesthetic (approximately 2 hours) with return of the original symptoms after that time. For this reason, it is felt that the patient is a good candidate to undergo thermal Radio Frequency Lesioning of the dorsal sacral and cluneal nerves at 80 degrees celsius for 150 seconds. This will effectively denervate the arthritic SI joints previously targeted with the diagnostic injection. It is noted that the procedure often requires 3-4 weeks to provide benefit, but the benefit usually lasts for approximately 1 year and can then be repeated if necessary. Patients undergoing this procedure often have mild post-procedural pain for 3-4 days which is generally relieved with application of heat and over the counter pain relievers. Follow up 4 weeks after procedure The medications prescribed have been reviewed for medication interactions/contraindications and/or for upcoming procedures: continue current medication regimen without any changes. DISCUSSION: Treatment options discussed with patient and all questions answered to patient's satisfaction. Discussed the rules and regulations surrounding prescription of opioids and compliance at length. Failure to follow the rules and regulation will result in tapering and discontinuation of medications if applicable. Prescribed medication that requires intensive monitoring for toxicity We do not currently prescribe any controlled substance from this practice. It is noted that the patient did have good response from the previously performed procedure. It is felt that the patient would benefit from an additional procedure of the same nature in that the same symptoms have returned. It is hopeful that this additional injection will provide additional benefit and duration when combined with the previous injection. The spine model was demonstrated and MRI was reviewed and used to explain the condition. Chronic conditions not treated during this visit that affected my overall medical decision making: Comorbidity- Obesity The patient does have a comorbid condition of obesity. This will be taken into account in that obesity will contribute to certain pain conditions. It can contribute to pain from degenerative disc disease as well as osteoarthritis of the joints. Many neuropathic symptoms are also amplified due to axial spine loading. Special benefits will also need to be given to procedures. Many procedures are technically more difficult in the light of severe obesity. I will also consider the possibility of undiagnosed obstructive sleep apnea (which often accompanies obesity) when prescribing any narcotic medications. I will weigh the risks and benefits and fully discuss them with the patient for these reasons. Comorbidity- Diabetes The patient has a history of diabetes mellitus currently managed with medications. This will need to be considered prior to any procedure that would require the injection of steroid in that the patient may experience a transient increase in glucose as a result. Additional consideration will need to be given to timing the procedure early in the morning in that the patient will need to be fasting prior to the administration of anesthesia. Every effort will be made to perform the procedure as a 1st case due to this condition. And the patient will be instructed to hold their diabetic medications on that morning. If necessary, a blood glucose test can also be performed that morning. The risks/ benefits/ and alternatives will be weighed and explained to the patient prior to any procedure. OARRS: Reviewed. Scribe Statement: Scribed for and in the presence of NINO DESOUZA by Reanna Holt CNA. Provider Statement: I, NINO DESOUZA, personally performed the services described in the documentation, as scribed by Reanna Holt CNA in my presence, and it is both accurate and complete. Reanna Holt CNA 11/26/23 [id number] NINO Desouza 11/26/23 [id number] documented in this encounter [facility] 11-26-2023 Instructions Reanna Holt CNA - 11/26/2023 8:00 AM EST Radiofrequency Ablation (RFA) Radiofrequency ablation (or RFA) is a procedure used to reduce pain. An electrical current produced by a radio wave is used to heat up a small area of nerve tissue, thereby decreasing pain signals from that specific area. Which Conditions Are Treated With Radiofrequency Ablation? RFA can be used to help patients with chronic (long-lasting) back and neck pain and pain related to the degeneration of joints from arthritis. How Long Does Pain Relief from Radiofrequency Ablation Last? The degree of pain relief varies, depending on the cause and location of the pain. Pain relief from RFA can last from six to 12 months and in some cases, relief can last for years. More than 70% of patients treated with RFA experience pain relief. Is Radiofrequency Ablation Safe? RFA has proven to be a safe and effective way to treat some forms of pain. It also is generally well-tolerated, with very few associated complications. There is a slight risk of infection and bleeding at the insertion site. Your doctor can advise you about your particular risk. Can I Resume My Normal Activities After Radiofrequency Ablation? You will have a few restrictions immediately following radiofrequency ablation: Do not drive or operate machinery for at least 24 hours after the procedure. You may resume your normal diet and prescribed medications (including blood thinners) when you get home. Do not engage in any strenuous activity for the first 24 hours after the procedure. You may remove any bandages in the evening before going to bed. You may experience the following effects after RFA: Leg numbness: If you have any leg numbness, walk only with assistance. This should only last a few hours and is due to the local anesthesia given during the procedure. Mild back discomfort: This may occur when the local anesthetic wears off and usually lasts two or three days. Apply heat to the area the day of the procedure and the day after the procedure. You may also use your usual pain medications and NSAID medications such as ibuprofen, naproxen, Aleve, Motrin, etc. if you are able. Expectations: Results will be gradual. It may take 3-4 weeks for full relief. If you feel severe pain at the injection site with swelling and redness, increased leg weakness, a fever of 101 or higher, headache (or worsening headache), changes in vision or urinary retention: Please call the office at , or have someone take you to the nearest emergency room. Tell the emergency room staff that you just had RFA. A doctor must evaluate you for bleeding and injection complications. If you lose control over bowel, bladder, or legs: Go to the nearest emergency room. If you are diabetic, the steroids used in this procedure can increase your blood sugar. If your blood sugar is 250mg/dL or higher, contact your primary care physician, or the doctor who manages your diabetes, to discuss how to get it back to normal. documented in this encounter [facility] 11-06-2023 Miscellaneous Notes Last Office Visit: 08/27/2023 Next Office Visit: 11/19/2023 Last Urine Drug Screen: No results found for: BENZOSCRN OARRS appropriate documented in this encounter [facility] 11-06-2023 Telephone encounter Note Last Office Visit: 08/27/2023 Next Office Visit: 11/19/2023 Last Urine Drug Screen: No results found for: BENZOSCRN OARRS appropriate [facility] 07-26-2023 Evaluation note Encounter Date Diagnosis Assessment Notes Jul, Well adult exam (ICD-10 - Z00.00) We have discussed the necessity of following up with PCP regularly as well as specialists, as needed. Discussed F/U with dentistry and optometry at least yearly. Discussed all preventative measures/ cancer screenings as applicable to this patient. Emphasized the importance of a reduced fat, low carb diet to promote heart health and controlled blood sugars. Reviewed social history and ensured patient is safe within the home today. Pt denies any abuse of alcohol, nicotine, caffeine or recreational drugs. I have ensured patient is of stable mental and physical health today. We have discussed appropriate F/U schedule as well as blood work and vaccinations that apply. All questions answered and patient is sent home pleased, without concerns. Jul, Type 2 diabetes mellitus with hyperglycemia (ICD-10 - E11.65) Notes increased yeast infection symptoms on this med. Will d/c Jardiance and monitor glucose. Actos dose increased to compensate. Jul, intermediate (current) use of insulin (ICD-10 - Z79.4) [facility] Other 08-08-2023 Evaluation note* Encounter Date Diagnosis Assessment Notes Treatment Notes Treatment Clinical Notes May, Right-sided chest pain (ICD-10 - R07.9) Reviewed stress test from October Nathalia. Notes R sided chest pain with exertion. Recalls lens inserter at telling her she did have lung nodules on CT 4+ years ago. Agrees to CT at [facility]. May, Pulmonary nodule (ICD-10 - R91.1) May, Herniation of intervertebral disc between L5 and S1 (ICD-10 - M51.27) Pt under care of [facility]. Requests refill of Gabapentin. [facility] May, Type 2 diabetes mellitus with hyperglycemia, without long-term current use of insulin (ICD-10 - E11.65) Pt og have A1C done soon. Will refill actos as requested. Checks glucose at home frequently - highest is in middle of night (3am) around 150. [facility] Other 06-28-2023 Miscellaneous Notes* Telephone Encounter - River Bradshaw MA - 04/10/2023 9:05 AM EDT Called & left patient a voicemail regarding her Jardiance refill * Telephone Encounter - Ruth Apodaca MD - 04/09/2023 11:05 AM EDT This patient was discharged back to her PCP at her appointment in December She will need to see her PCP for all refills thanks Ruth Apodaca MD * Telephone Encounter - Mckinley Pedraza Ma - 04/09/2023 9:28 AM EDT Requester: Pharmacy Patients last Endocrinology visit occurred 01/04/23. Follow-up evaluation has been established Upcoming Endocrinology Appointments - Next 365 Days No appointments to display . Requested Prescriptions Pending Prescriptions Disp Refills JARDIANCE 10 mg tablet [Pharmacy Med Name: JARDIANCE TABS 10MG] 90 tablet 3 Sig: TAKE 1 TABLET DAILY WITH BREAKFAST If patient is due for an appointment please route to provider for refill consideration and also to the endo scheduling pool. PSS NOTE: Patient needs scheduled [facility] Patient Education 02/18/2023 08:30:48 Dietary Guidelines to Help Prevent Kidney Stones Dietary Guidelines to Help Prevent Kidney Stones Kidney stones are deposits of minerals and salts that form inside your kidneys. Your risk of developing kidney stones may be greater depending on your diet, your lifestyle, the medicines you take, and whether you have certain medical conditions. Most people can lower their chances of developing kidney stones by following the instructions below. Your dietitian may give you more specific instructions depending on your overall health and the type of kidney stones you tend to develop. What are tips for following this plan? Reading food labels Choose foods with no salt added or low-salt labels. Limit your salt (sodium) intake to less than 1,500 mg a day. Choose foods with calcium for each meal and snack. Try to eat about 300 mg of calcium at each meal.Foods that contain 200 500 mg of calcium a serving include: ?8 oz (237 mL) of milk, uwizglk-iynapxbvbxdh-eeitn milk, and calcium- fortifiedfruit juice. Calcium-fortified means that calcium has been added to these drinks. ?8 oz (237 mL) of kefir, yogurt, and soy yogurt. ?4 oz (114 g) of tofu. ?1 oz (28 g) of cheese. ?1 cup (150 g) of dried figs. ?1 cup (91 g) of cooked broccoli. ?One 3 oz (85 g) can of sardines or mackerel. Most people need 1,000 1,500 mg of calcium a day. Talk to your dietitian about how much calcium is recommended for you. Shopping Buy plenty of fresh fruits and vegetables. Most people do not need to avoid fruits and vegetables, even if these foods contain nutrients that may contribute to kidney stones. When shopping for convenience foods, choose: ?Whole pieces of fruit. ?Pre-made salads with dressing on the side. ?Low-fat fruit and yogurt smoothies. Avoid buying frozen meals or prepared deli foods. These can be high in sodium. Look for foods with live cultures, such as yogurt and kefir. Choose high-fiber grains, such as whole-wheat breads, oat bran, and wheat cereals. Cooking Do not add salt to food when cooking. Place a salt shaker on the table and allow each person to addhis or her own salt to taste. Use vegetable protein, such as beans, textured vegetable protein (TVP), or tofu, instead of meat inpasta, casseroles, and soups. Meal planning Eat less salt, if told by your dietitian. To do this: ?Avoid eating processed or pre-made food. ?Avoid eating fast food. Eat less animal protein, including cheese, meat, poultry, or fish, if told by your dietitian. To dothis: ?Limit the number of times you have meat, poultry, fish, or cheese each week. Eat a diet free of meat at least 2 days a week. ?Eat only one serving each day of meat, poultry, fish, or seafood. ?When you prepare animal protein, cut pieces into small portion sizes. For most meat and fish, one serving is about the size of the palm of your hand. Eat at least five servings of fresh fruits and vegetables each day. To do this: ?Keep fruits and vegetables on hand for snacks. ?Eat one piece of fruit or a handful of berries with breakfast. ?Have a salad and fruit at lunch. ?Have two kinds of vegetables at dinner. Limit foods that are high in a substance called oxalate. These include: ?Spinach (cooked), rhubarb, beets, sweet potatoes, and Filipino chard. ?Peanuts. ?Potato chips, belarusian fries, and baked potatoes with skin on. ?Nuts and nut products. ?Chocolate. If you regularly take a diuretic medicine, make sure to eat at least 1 or 2 servings of fruits or vegetables that are high in potassium each day. These include: ?Avocado. ?Banana. ?Eldred, prune, carrot, or tomato juice. ?Baked potato. ?Cabbage. ?Beans and split peas. Lifestyle Drink enough fluid to keep your urine pale yellow. This is the most important thing you can do. Spread your fluid intake throughout the day. If you drink alcohol: ?Limit how much you use to: ?0 1 drink a day for women who are not . ?0 2 drinks a day for men. ?Be aware of how much alcohol is in your drink. In the [place] one drink equals one 12 oz bottle of beer (355 mL), one 5 oz glass of wine (148 mL), or one 1 oz glass of hard liquor (44 mL). Lose weight if told by your health care provider. Work with your dietitian to find an eating plan and weight loss strategies that work best for you. General information Talk to your health care provider and dietitian about taking daily supplements. You may be told thefollowing depending on your health and the cause of your kidney stones: ?Not to take supplements with vitamin C. ?To take a calcium supplement. ?To take a daily probiotic supplement. ?To take other supplements such as magnesium, fish oil, or vitamin B6. Take mqvv-tsx-plfgwra and prescription medicines only as told by your health care provider. These include supplements. What foods should I limit? Limit your intake of the following foods, or eat them as told by your dietitian. Vegetables Spinach. Rhubarb. Beets. Canned vegetables. Pickles. Olives. Baked potatoes with skin. Grains Wheat bran. Baked goods. Salted crackers. Cereals high in sugar. Meats and other proteins Nuts. Nut butters. Large portions of meat, poultry, or fish. Salted, precooked, or cured meats, such as sausages, meat loaves, and hot dogs. Dairy Cheese. Beverages Regular soft drinks. Regular vegetable juice. Seasonings and condiments Seasoning blends with salt. Salad dressings. Soy sauce. Ketchup. Barbecue sauce. Other foods Canned soups. Canned pasta sauce. Casseroles. Pizza. Lasagna. Frozen meals. Potato chips. [place] fries. The items listed above may not be a complete list of foods and beverages you should limit. Contact a dietitian for more information. What foods should I avoid? Talk to your dietitian about specific foods you should avoid based on the type of kidney stones youhave and your overall health. Fruits Grapefruit. The item listed above may not be a complete list of foods and beverages you should avoid. Contact adietitian for more information. Summary Kidney stones are deposits of minerals and salts that form inside your kidneys. You can lower your risk of kidney stones by making changes to your diet. The most important thing you can do is drink enough fluid. Drink enough fluid to keep your urine pale yellow. Talk to your dietitian about how much calcium you should have each day, and eat less salt and animal protein as told by your dietitian. This information is not intended to replace advice given to you by your health care provider. Make sure you discuss any questions you have with your health care provider. Document Revised: 06/11/2022 Document Reviewed: 06/11/2022 [employer] Patient Education 2022 [employer] book. Follow Up Care 05/21/2022 09:23:55 With:YADIRA LARSEN, Ganesh Powell, URL Address: [address] [place] [address]- When: Unknown [facility] 03-24-2023 NoteHNO ID: [id number] Author: Ruth Apodaca MD Service: ? Author Type: Physician Type: Progress Notes Filed: 01/04/2023 3:19 PM Note Text: DIABETES LAST SEEN 02-26-2022 CC: I am here for diabetes VIRTUAL VISIT: I have communicated my name and licensure. The patient's identity and location were verified. Either the patient or their legal new accounts representative has been informed of the risks, benefits, and alternative to treatment based on a remote evaluation, and consents to proceed remotely per [place] law. HISTORY OF PRESENT ILLNESS 47 year old female who initially presented 08-18-2021 for evaluation of uncontrolled Diabetes with hyperglycemia, seen at the request of Triston James MD Uncontrolled Diabetes with hyperglycemia AT THE TIME OF INITIAL PRESENTATION: Duration: 4 years Severity: historically at goal Context: Rheumatoid arthrtis Modifying factors: single oral agent Associated Signs AND Symptoms: hands and feet -- pain; sees podiatry FOLLOW UP VISIT 01-04-2023 VIRTUALLY: Presents for the first time in nearly a year, no current labs, BG not uploaded - she read them off to me CO-MORBIDITIES: COMPLICATIONS: denies SMBG Type of Monitor: Frequency of Monitoring: daily BG Values: FASTIN, 154, 147,162,168 NOON: 129, 130, 124,122, 126, DINNER: 133, 139, 141, 116, 120 HS none Average: 7 d = 159 14d = 150 30 = 142 per her meter DIET The patient's current diet is: ad suhail but is quite careful with her food choices Number of meals / snacks per day: 3 / HYPOGLYCEMIA AWARENESS / INCIDENCE Hypoglycemia awareness AND typical blood sugar level when symptoms occur: none Frequency of hypoglycemia is: EXERCISE: REVIEW OF SYSTEMS: GENERAL: wt is up EYES: ok CARDIAC: neg LUNG neg GI: neg : neg SKIN: MUSCULO-SKELETAL: RA FEET painful RA PSYCH: DEPRESSION: NERVOUS SYSTEM: denies The remainder of the ROS is otherwise negative DIABETES-RELATED HEALTH MAINTENANCE: OPHTHALMOLOGY: PODIATRY: up to date EDUCATION: historically MEDICAL HISTORY: RA T2DM SURGICAL HISTORY: FAMILY HISTORY: FAMILY HISTORY Problem Relation Age of Onset Hypertension Mother Hyperlipidemia Father Fibromyalgia Sister other (Psoriatic arthritis) Sister other (Sjogren syndrome) Sister other (Raynaud's disease) Sister SOCIAL HISTORY: Social History Tobacco Use Smoking status: Never Smokeless tobacco: Never Vaping Use Vaping Use: Never used Substance Use Topics Drug use: Never CURRENT MEDICATIONS: Current Outpatient Medications on File Prior to Visit Medication Sig empagliflozin (JARDIANCE) 10 mg tablet Take 1 tablet by mouth daily with breakfast. insulin glargine-yfgn (SEMGLEE,INSULIN GLARG-YFGN,PEN) 100 unit/mL (3 mL) insulin pen Inject 30 unit(s) each evening before bed pioglitazone (ACTOS) 15 mg tablet Take 1 tablet by mouth once daily. insulin needles, DISPOSABLE, (PEN NEEDLE) 31 gauge x 5/16 use one daily with insulin injection pen needle, diabetic (COMFORT EZ PEN NEEDLES) 32 gauge x 3/16 ndle use one daily with insulin pen blood sugar diagnostic (ImagistxTOUCH ULTRA TEST) test strip Use as instructed to test blood sugars three times daily amoxicillin (POLYMOX, AMOXIL) 500 mg capsule Take 500 mg by mouth twice daily. carisoprodol (SOMA) 350 mg tablet Take 350 mg by mouth once daily. Cetirizine (ZYRTEC) 10 mg cap Take 10 mg by mouth once daily. esomeprazole (NEXIUM) 40 mg capsule Take 40 mg by mouth once daily. gabapentin (NEURONTIN) 300 mg capsule Take 600 mg by mouth once daily. ibuprofen (MOTRIN) 800 mg tablet Take 800 mg by mouth three times daily as needed. lidocaine (XYLOCAINE) 5 % ointment Apply 1 application to affected area at bedtime as needed. loperamide (IMODIUM) 2 mg cap(s) Take 2 mg by mouth as needed. Milnacipran (SAVELLA) 100 mg tab Take 100 mg by mouth once daily. montelukast (SINGULAIR) 10 mg tablet Take 10 mg by mouth once daily. Norethindrone-Eth Estradiol 1-35 mg-mcg per tablet Take 1 tablet by mouth once daily. propranolol ER (INDERAL LA) 160 mg Cs24 Take 160 mg by mouth once daily. traZODone (DESYREL) 150 mg tablet Take 150 mg by mouth daily at bedtime. triamcinolone acetonide (KENALOG) 0.5 % cream Apply 1 application to affected area as needed. No current facility-administered medications on file prior to visit. LABS: - See Care Everywhere A1c historically 6.6 HISTORICAL ALT (U/L) Date Value 11/30/2019 8 Potassium (mmol/L) Date Value 11/30/2019 4.1 Creatinine (mg/dL) Date Value 11/30/2019 0.88 Glucose (mg/dL) Date Value 11/30/2019 164 PHYSICAL EXAM: VIRTUALLY Appearance: Well- appearing, alert; ASSESSMENT AND RECOMMENDATIONS ASSESSMENT/PLAN: 1. type 2 diabetes mellitus with hyperglycemia, withlong-term current use of insulin (HCC) - I (more content not included)...[facility] 01-04-2023 History of Present illness Narrative* Ruth Apodaca MD - 01/04/2023 3:00 PM EDT DIABETES LAST SEEN 02-26-2022 CC: I am here for diabetes VIRTUAL VISIT: I have communicated my name and licensure. The patient's identity and location were verified. Either the patient or their legal new accounts representative has been informed of the risks, benefits,and alternative to treatment based on a remote evaluation, and consents to proceed remotely per [place] law. HISTORY OF PRESENT ILLNESS 47 year old female who initially presented 08-18-2021 for evaluation of uncontrolled Diabetes with hyperglycemia, seen at the request of Triston James MD Uncontrolled Diabetes with hyperglycemia AT THE TIME OF INITIAL PRESENTATION: Duration: 4 years Severity: historically at goal Context: Rheumatoid arthrtis Modifying factors: single oral agent Associated Signs & Symptoms: hands and feet -- pain; sees podiatry FOLLOW UP VISIT 01-04-2023 VIRTUALLY: Presents for the first time in nearly a year, no current labs, BG not uploaded - she read them off to me CO-MORBIDITIES: COMPLICATIONS: denies SMBG Type of Monitor: Frequency of Monitoring: daily BG Values: FASTIN, 154, 147,162,168 NOON: 129, 130, 124,122, 126, DINNER: 133, 139, 141, 116, 120 HS none Average: 7 d = 159 14d = 150 30 = 142 per her meter DIET The patient's current diet is: ad suhail but is quite careful with her food choices Number of meals / snacks per day: 3 / HYPOGLYCEMIA AWARENESS / INCIDENCE Hypoglycemia awareness & typical blood sugar level when symptoms occur: none Frequency of hypoglycemia is: EXERCISE: REVIEW OF SYSTEMS: GENERAL: wt is up EYES: ok CARDIAC: neg LUNG neg GI: neg : neg SKIN: MUSCULO-SKELETAL: RA FEET painful RA PSYCH: DEPRESSION: NERVOUS SYSTEM: denies The remainder of the ROS is otherwise negative DIABETES-RELATED HEALTH MAINTENANCE: OPHTHALMOLOGY: PODIATRY: up to date EDUCATION: historically MEDICAL HISTORY: RA T2DM SURGICAL HISTORY: FAMILY HISTORY: FAMILY HISTORY Problem Relation Age of Onset Hypertension Mother Hyperlipidemia Father Fibromyalgia Sister other (Psoriatic arthritis) Sister other (Sjogren syndrome) Sister other (Raynaud's disease) Sister SOCIAL HISTORY: Social History Tobacco Use Smoking status: Never Smokeless tobacco: Never Vaping Use Vaping Use: Never used Substance Use Topics Drug use: Never CURRENT MEDICATIONS: Current Outpatient Medications on File Prior to Visit Medication Sig empagliflozin (JARDIANCE) 10 mg tablet Take 1 tablet by mouth daily with breakfast. insulin glargine-yfgn (SEMGLEE,INSULIN GLARG-YFGN,PEN) 100 unit/mL (3 mL) insulin pen Inject 30 unit(s) each evening before bed pioglitazone (ACTOS) 15 mg tablet Take 1 tablet by mouth once daily. insulin needles, DISPOSABLE, (PEN NEEDLE) 31 gauge x 5/16 use one daily with insulin injection pen needle, diabetic (COMFORT EZ PEN NEEDLES) 32 gauge x 3/16 ndle use one daily with insulin pen blood sugar diagnostic (ImagistxTOUCH ULTRA TEST) test strip Use as instructed to test blood sugars three times daily amoxicillin (POLYMOX, AMOXIL) 500 mg capsule Take 500 mg by mouth twice daily. carisoprodol (SOMA) 350 mg tablet Take 350 mg by mouth once daily. Cetirizine (ZYRTEC) 10 mg cap Take 10 mg by mouth once daily. esomeprazole (NEXIUM) 40 mg capsule Take 40 mg by mouth once daily. gabapentin (NEURONTIN) 300 mg capsule Take 600 mg by mouth once daily. ibuprofen (MOTRIN) 800 mg tablet Take 800 mg by mouth three times daily as needed. lidocaine (XYLOCAINE) 5 % ointment Apply 1 application to affected area at bedtime as needed. loperamide (IMODIUM) 2 mg cap(s) Take 2 mg by mouth as needed. Milnacipran (SAVELLA) 100 mg tab Take 100 mg by mouth once daily. montelukast (SINGULAIR) 10 mg tablet Take 10 mg by mouth once daily. Norethindrone-Eth Estradiol 1-35 mg-mcg per tablet Take 1 tablet by mouth once daily. propranolol ER (INDERAL LA) 160 mg Cs24 Take 160 mg by mouth once daily. traZODone (DESYREL) 150 mg tablet Take 150 mg by mouth daily at bedtime. triamcinolone acetonide (KENALOG) 0.5 % cream Apply 1 application to affected area as needed. No current facility-administered medications on file prior to visit. LABS: - See Care Everywhere A1c historically 6.6 HISTORICAL ALT (U/L) Date Value 11/30/2019 8 Potassium (mmol/L) Date Value 11/30/2019 4.1 Creatinine (mg/dL) Date Value 11/30/2019 0.88 Glucose (mg/dL) Date Value 11/30/2019 164 PHYSICAL EXAM: VIRTUALLY Appearance: Well- appearing, alert; ASSESSMENT & RECOMMENDATIONS ASSESSMENT/PLAN: 1. type 2 diabetes mellitus with hyperglycemia, withlong-term current use of insulin (HCC) - ICD9: 250.02, ICD10: E11.65 (primary diagnosis) - at goal - + diet + lifestyle is the plan - did not alina Precose - PIOGLITAZONE 15 MG TABLET -- at breakfast -- d/c back to her PCP for continued following Driving and Diabetes has been reviewed with the patient. The Patient was instructed to contact this office if the blood sugar readings are consistently highor if they are experiencing frequent episodes of hypoglycemia. Next visit in: none planned Patient is to continue to follow up with her PCP and with other consultants regarding her other medical problems. I thank you for the opportunity to participate in the care of Nathalia Patino. Please do not hesitate to contact me if you have further concerns or questions. This chart has been routed to the referring provider electronically Ruth Apodaca MS, RD, MD, CCD, FACN, FACP, FACE, DENISSE Diplomate, [place] Board [employer]esity [employer] Diplomate, National Board of Physician Nutrition Specialists Department of Endocrinology / F-20 / [phone] / [id number] Any part of this document that has been added/copied & pasted from other documents has been reviewed for accuracy and updated as appropriate at the time of the patient encounter documented in this encounterHenry [facility] Miscellaneous Notes* Telephone Encounter - Alin Paniagua MA - 01/03/2023 11:27 AM EDT Spoke to Nathalia Pation, confirmed patient is registered on [employer] and is prepared for their appointment. Confirmed the patient has updated medications, allergies, and questionnaires via [employer]. Informed patient if there is an issue with the connection, provider will send the patient a secure link. If provider is running late, patient should remain connected to the visit. Patient verbalized understanding. Patient will not submit blood sugar readings through her mychart. The patient will provide her readings verbally with the provider. Alin Paniagua MA documented in this encounterHenry [facility]01-10-[facility]23 Evaluation note* Encounter Date Diagnosis Assessment Notes Treatment Notes Treatment Clinical Notes Oct, Substernal chest pain (ICD-10 - R07.2) Oct, Dyspnea on minimal exertion (ICD-10 - R06.09) Oct, Lower extremity edema (ICD-10 - R60.0) [employer] Other [id number] Miscellaneous Notes* Telephone Encounter - Alia Saha Ma - 10/12/2022 1:13 PM EST Requester: Pharmacy Patients last Endocrinology visit occurred 02/26/22. Follow-up evaluation has been established none. Requested Prescriptions Pending Prescriptions Disp Refills insulin glargine-yfgn (SEMGLEE,INSULIN GLARG-YFGN,PEN) 100 unit/mL (3 mL) insulin pen 15 Each 1 Sig: Inject 30 unit(s) each evening before bed If patient is due for an appointment please route to provider for refill consideration and also to the endo scheduling pool. PSS NOTE: Patient needs scheduled appointment No documented in this encounterHenry [facility] Hospital08-[facility]22 Hospital Discharge instructions Patient Education 05/21/2022 08:57:08 Kidney Stones, [id number] Kidney Stones Kidney stones are rock-like masses that form inside of the kidneys. Kidneys are organs that make pee (urine). A kidney stone may move into other parts of the urinary tract, including: The tubes that connect the kidneys to the bladder (ureters). The bladder. The tube that carries urine out of the body (urethra). Kidney stones can cause very bad pain and can block the flow of pee. The stone usually leaves your body (passes) through your pee. You may need to have a doctor take out the stone. What are the causes? Kidney stones may be caused by: A condition in which certain glands make too much parathyroid hormone (primary hyperparathyroidism). A buildup of a type of crystals in the bladder made of a chemical called uric acid. The body makes uric acid when you eat certain foods. Narrowing (stricture) of one or both of the ureters. A kidney blockage that you were born with. Past surgery on the kidney or the ureters, such as gastric bypass surgery. What increases the risk? You are more likely to develop this condition if: You have had a kidney stone in the past. You have a family history of kidney stones. You do not drink enough water. You eat a diet that is high in protein, salt (sodium), or sugar. You are overweight or very overweight (obese). What are the signs or symptoms? Symptoms of a kidney stone may include: Pain in the side of the belly, right below the ribs (flank pain). Pain usually spreads (radiates) to the groin. Needing to pee often or right away (urgently). Pain when going pee (urinating). Blood in your pee (hematuria). Feeling like you may vomit (nauseous). Vomiting. Fever and chills. How is this treated? Treatment depends on the size, location, and makeup of the kidney stones. The stones will often pass out of the body through peeing. You may need to: Drink more fluid to help pass the stone. In some cases, you may be given fluids through an IV tube put into one of your veins at the hospital. Take medicine for pain. Make changes in your diet to help keep kidney stones from coming back. Sometimes, medical procedures are needed to remove a kidney stone. This may involve: A procedure to break up kidney stones using a beam of light (laser) or shock waves. Surgery to remove the kidney stones. Follow these instructions at home: Medicines Take eroa-xby-khwxuya and prescription medicines only as told by your doctor. Ask your doctor if the medicine prescribed to you requires you to avoid driving or using heavy machinery. Eating and drinking Drink enough fluid to keep your pee pale yellow. You may be told to drink at least 8 10 glasses of water each day. This will help you pass the stone. If told by your doctor, change your diet. This may include: ?Limiting how much salt you eat. ?Eating more fruits and vegetables. ?Limiting how much meat, poultry, fish, and eggs you eat. Follow instructions from your doctor about eating or drinking restrictions. General instructions Collect pee samples as told by your doctor. You may need to collect a pee sample: ?24 hours after a stone comes out. ?8 12 weeks after a stone comes out, and every 6 12 months after that. Strain your pee every time you pee (urinate), for as long as told. Use the strainer that your doctor recommends. Do not throw out the stone. Keep it so that it can be tested by your doctor. Keep all follow-up visits as told by your doctor. This is important. You may need follow-up tests. How is this prevented? To prevent another kidney stone: Drink enough fluid to keep your pee pale yellow. This is the best way to prevent kidney stones. Eat healthy foods. Avoid certain foods as told by your doctor. You may be told to eat less protein. Stay at a healthy weight. Where to find more information National Kidney Foundation (NKF): www.kidney.org [facility] (UCF): www.urologyhealth.org Contact a doctor if: You have pain that gets worse or does not get better with medicine. Get help right away if: You have a fever or chills. You get very bad pain. You get new pain in your belly (abdomen). You pass out (faint). You cannot pee. Summary Kidney stones are rock-like masses that form inside of the kidneys. Kidney stones can cause very bad pain and can block the flow of pee. The stones will often pass out of the body through peeing. Drink enough fluid to keep your pee pale yellow. This information is not intended to replace advice given to you by your health care provider. Make sure you discuss any questions you have with your health care provider. Document Released: 03/18/2009 Document Revised: 02/16/2020 Document Reviewed: 02/16/2020 [employer] Patient Education 2020 [employer] book. 05/21/2022 08:57:06 Calorie Counting for Weight Loss Calorie Counting for Weight Loss Calories are units of energy. Your body needs a certain amount of calories from food to keep you going throughout the day. When you eat more calories than your body needs, your body stores the extra calories as fat. When you eat fewer calories than your body needs, your body guzmán fat to get the energy it needs. Calorie counting means keeping track of how many calories you eat and drink each day. Calorie counting can be helpful if you need to lose weight. If you make sure to eat fewer calories than your bodyneeds, you should lose weight. Ask your health care provider what a healthy weight is for you. For calorie counting to work, you will need to eat the right number of calories in a day in order to lose a healthy amount of weight per week. A dietitian can help you determine how many calories youneed in a day and will give you suggestions on how to reach your calorie goal. A healthy amount of weight to lose per week is usually 1 2 lb (0.5 0.9 kg). This usually means thatyour daily calorie intake should be reduced by 500 750 calories. Eating 1,200 1,500 calories per day can help most women lose weight. Eating 1,500 1,800 calories per day can help most men lose weight. What is my plan? My goal is to have calories per day. If I have this many calories per day, I should lose around pounds per week. What do I need to know about calorie counting? In order to meet your daily calorie goal, you will need to: Find out how many calories are in each food you would like to eat. Try to do this before you eat. Decide how much of the food you plan to eat. Write down what you ate and how many calories it had. Doing this is called keeping a food log. To successfully lose weight, it is important to balance calorie counting with a healthy lifestyle that includes regular activity. Aim for 150 minutes of moderate exercise (such as walking) or 75 minutes of vigorous exercise (such as running) each week. Where do I find calorie information? The number of calories in a food can be found on a Nutrition Facts label. If a food does not have aNutrition Facts label, try to look up the calories online or ask your dietitian for help. Remember that calories are listed per serving. If you choose to have more than one serving of a food, you will have to multiply the calories per serving by the amount of servings you plan to eat. Forexample, the label on a package of bread might say that a serving size is 1 slice and that there are 90 calories in a serving. If you eat 1 slice, you will have eaten 90 calories. If you eat 2 slices, you will have eaten 180 calories. How do I keep a food log? Immediately after each meal, record the following information in your food log: What you ate. Don't forget to include toppings, sauces, and other extras on the food. How much you ate. This can be measured in cups, ounces, or number of items. How many calories each food and drink had. The total number of calories in the meal. Keep your food log near you, such as in a small notebook in your pocket, or use a mobile laurie or website. Some programs will calculate calories for you and show you how many calories you have left forthe day to meet your goal. What are some calorie counting tips? Use your calories on foods and drinks that will fill you up and not leave you hungry: ?Some examples of foods that fill you up are nuts and nut butters, vegetables, lean proteins, and high-fiber foods like whole grains. High-fiber foods are foods with more than 5 g fiber per serving. ?Drinks such as sodas, specialty coffee drinks, alcohol, and juices have a lot of calories, yet do not fill you up. Eat nutritious foods and avoid empty calories. Empty calories are calories you get from foods or beverages that do not have many vitamins or protein, such as candy, sweets, and soda. It is better to have a nutritious high-calorie food (such as an avocado) than a food with few nutrients (such as a bag of chips). Know how many calories are in the foods you eat most often. This will help you calculate calorie counts faster. Pay attention to calories in drinks. Low-calorie drinks include water and unsweetened drinks. Pay attention to nutrition labels for low fat or fat free foods. These foods sometimes have thesame amount of calories or more calories than the full fat versions. They also often have added sugar, starch, or salt, to make up for flavor that was removed with the fat. Find a way of tracking calories that works for you. Get creative. Try different apps or programs ifwriting down calories does not work for you. What are some portion control tips? Know how many calories are in a serving. This will help you know how many servings of a certain food you can have. Use a measuring cup to measure serving sizes. You could also try weighing out portions on a kitchenscale. With time, you will be able to estimate serving sizes for some foods. Take some time to put servings of different foods on your favorite plates, bowls, and cups so you know what a serving looks like. Try not to eat straight from a bag or box. Doing this can lead to overeating. Put the amount you would like to eat in a cup or on a plate to make sure you are eating the right portion. Use smaller plates, glasses, and bowls to prevent overeating. Try not to multitask (for example, watch TV or use your computer) while eating. If it is time to eat, sit down at a table and enjoy your food. This will help you to know when you are full. It will also help you to be aware of what you are eating and how much you are eating. What are tips for following this plan? Reading food labels Check the calorie count compared to the serving size. The serving size may be smaller than what youare used to eating. Check the source of the calories. Make sure the food you are eating is high in vitamins and proteinand low in saturated and trans fats. Shopping Read nutrition labels while you shop. This will help you make healthy decisions before you decide to purchase your food. Make a grocery list and stick to it. Cooking Try to cook your favorite foods in a healthier way. For example, try baking instead of frying. Use low-fat dairy products. Meal planning Use more fruits and vegetables. Half of your plate should be fruits and vegetables. Include lean proteins like poultry and fish. How do I count calories when eating out? Ask for smaller portion sizes. Consider sharing an entree and sides instead of getting your own entree. If you get your own entree, eat only half. Ask for a box at the beginning of your meal and put the rest of your entree in it so you are not tempted to eat it. If calories are listed on the menu, choose the lower calorie options. Choose dishes that include vegetables, fruits, whole grains, low-fat dairy products, and lean protein. Choose items that are boiled, broiled, grilled, or steamed. Stay away from items that are buttered,battered, fried, or served with cream sauce. Items labeled crispy are usually fried, unless stated otherwise. Choose water, low-fat milk, unsweetened iced tea, or other drinks without added sugar. If you want an alcoholic beverage, choose a lower calorie option such as a glass of wine or light beer. Ask for dressings, sauces, and syrups on the side. These are usually high in calories, so you should limit the amount you eat. If you want a salad, choose a garden salad and ask for grilled meats. Avoid extra toppings like currie, cheese, or fried items. Ask for the dressing on the side, or ask for olive oil and vinegar or lemon to use as dressing. Estimate how many servings of a food you are given. For example, a serving of cooked rice is cup orabout the size of half a baseball. Knowing serving sizes will help you be aware of how much food you are eating at restaurants. The list below tells you how big or small some common portion sizes arebased on everyday objects: ?1 oz 4 stacked dice. ?3 oz 1 deck of cards. ?1 tsp 1 . ?1 Tbsp a ping-pong ball. ?2 Tbsp 1 ping-pong ball. ? cup baseball. ?1 cup 1 baseball. Summary Calorie counting means keeping track of how many calories you eat and drink each day. If you eat fewer calories than your body needs, you should lose weight. A healthy amount of weight to lose per week is usually 1 2 lb (0.5 0.9 kg). This usually means reducing your daily calorie intake by 500 750 calories. The number of calories in a food can be found on a Nutrition Facts label. If a food does not have aNutrition Facts label, try to look up the calories online or ask your dietitian for help. Use your calories on foods and drinks that will fill you up, and not on foods and drinks that will leave you hungry. Use smaller plates, glasses, and bowls to prevent overeating. This information is not intended to replace advice given to you by your health care provider. Make sure you discuss any questions you have with your health care provider. Document Released: 09/30/2006 Document Revised: 06/19/2019 Document Reviewed: 08/30/2017 [employer] Patient Education 2020 [employer] book. Follow Up Care 11/20/2021 08:44:12 With:YADIRA LARSEN, Ganesh Powell, URL Address: [address] [place] [id number] [phone] When:Within 9 Month(s) Comments:tessie/ANTONIA [facility] 07-12-2022 Evaluation note* Encounter Date Diagnosis Assessment Notes Treatment Notes Treatment Clinical Notes Apr, Other chronic pain (ICD-10 - G89.29) I have independently reviewed the MRI of the lumbar spine and the report. This patient has a central disc herniation L5-S1. Her symptoms are not consistent with radiculopathy, they are really more consistent with back pain and sacroiliac discomfort. I had a long discussion with the patient that the more she moves and the more she does the better she feels is not consistent with someone who has a radiculopathy which would normally get worse with increased activity. I do not believe surgical intervention is a reasonable alternative for the patient at this time. I think she should pursue pain management. A referral will be sent Apr, Low back pain, unspecified (ICD-10 - M54.50) [employer] Other 05-16-2022 NoteHNO ID: [id number] Author: Ruth Apodaca MD Service: ? Author Type: Physician Type: Progress Notes Filed: 02/26/2022 4:34 PM Note Text: DIABETES LAST SEEN 02-05-2022 CC: I am here for diabetes VIRTUALLY HISTORY OF PRESENT ILLNESS 46 year old female who initially presented 08-18-2021 for evaluation of uncontrolled Diabetes with hyperglycemia, seen at the request of Triston James MD Uncontrolled Diabetes with hyperglycemia AT THE TIME OF INITIAL PRESENTATION: Duration: 4 years Severity: historically at goal Context: Rheumatoid arthrtis Modifying factors: single oral agent Associated Signs AND Symptoms: hands and feet -- pain; sees podiatry OF NOTE: did not alina metformin; many drug sensitivities. FOLLOW UP VISIT 02-05-2022 VIRTUALLY: Presents in routine follow up. BG logs not submitted ahead of time No new labs. Shaji is working during the day. FOLLOW UP VISIT 02-26-2022 VIRTUALLY: BG not submitted ahead of time. She continues to titrate the Lantus and at 34 units CO-MORBIDITIES: COMPLICATIONS: denies SMBG Type of Monitor: Frequency of Monitoring: daily BG Values: FASTIN, 120.109. 136 NOON: 113, 117, 119, DINNER: HS DIET The patient's current diet is: ad suhail but is quite careful with her food choices Number of meals / snacks per day: 3 / HYPOGLYCEMIA AWARENESS / INCIDENCE Hypoglycemia awareness AND typical blood sugar level when symptoms occur: none Frequency of hypoglycemia is: EXERCISE: walk 20 - 30 min daily during the week REVIEW OF SYSTEMS: GENERAL: wt is up EYES: ok CARDIAC: neg LUNG neg GI: neg : neg SKIN: MUSCULO-SKELETAL: RA FEET painful RA PSYCH: DEPRESSION: NERVOUS SYSTEM: denies The remainder of the ROS is otherwise negative DIABETES-RELATED HEALTH MAINTENANCE: OPHTHALMOLOGY: PODIATRY: up to date EDUCATION: historically MEDICAL HISTORY: RA T2DM SURGICAL HISTORY: FAMILY HISTORY: FAMILY HISTORY Problem Relation Age of Onset - Hypertension Mother - Hyperlipidemia Father - Fibromyalgia Sister - other (Psoriatic arthritis) Sister - other (Sjogren syndrome) Sister - other (Raynaud's disease) Sister SOCIAL HISTORY: Social History Tobacco Use - Smoking status: Never Smoker - Smokeless tobacco: Never Used Vaping Use - Vaping Use: Never used Substance Use Topics - Alcohol use: Not on file - Drug use: Never CURRENT MEDICATIONS: Current Outpatient Medications on File Prior to Visit Medication Sig - canagliflozin (INVOKANA) 100 mg tab Take 1 tablet by mouth daily with breakfast. - blood sugar diagnostic ([employer]UCH ULTRA TEST) test strip Use as instructed to test blood sugars three times daily - amoxicillin (POLYMOX, AMOXIL) 500 mg capsule Take 500 mg by mouth twice daily. - carisoprodol (SOMA) 350 mg tablet Take 350 mg by mouth once daily. - Cetirizine (ZYRTEC) 10 mg cap Take 10 mg by mouth once daily. - dicyclomine (BENTYL) 10 mg capsule Take 10 mg by mouth as needed. - esomeprazole (NEXIUM) 40 mg capsule Take 40 mg by mouth once daily. - gabapentin (NEURONTIN) 300 mg capsule Take 600 mg by mouth once daily. - ibuprofen (MOTRIN) 800 mg tablet Take 800 mg by mouth three times daily as needed. - lidocaine (XYLOCAINE) 5 % ointment Apply 1 application to affected area at bedtime as needed. - loperamide (IMODIUM) 2 mg cap(s) Take 2 mg by mouth as needed. - Milnacipran (SAVELLA) 100 mg tab Take 100 mg by mouth once daily. - montelukast (SINGULAIR) 10 mg tablet Take 10 mg by mouth once daily. - Norethindrone-Eth Estradiol 1-35 mg-mcg per tablet Take 1 tablet by mouth once daily. - propranolol ER (INDERAL LA) 160 mg Cs24 Take 160 mg by mouth once daily. - traZODone (DESYREL) 150 mg tablet Take 150 mg by mouth daily at bedtime. - triamcinolone acetonide (KENALOG) 0.5 % cream Apply 1 application to affected area as needed. No current facility-administered medications on file prior to visit. LABS: ALT (U/L) Date Value 11/30/2019 8 Potassium (mmol/L) Date Value 11/30/2019 4.1 Creatinine (mg/dL) Date Value 11/30/2019 0.88 Glucose (mg/dL) Date Value 11/30/2019 164 PHYSICAL EXAM: VIRTUALLY Appearance: Well- appearing, alert; Skin: color and turgor are wnl Eyes conjunctiva and sclera normal Neck Supple, normal in appearance ASSESSMENT AND RECOMMENDATIONS ASSESSMENT/PLAN: 1. Uncontrolled type 2 diabetes mellitus with hyperglycemia, withlong-term current use of insulin (HCC) - ICD9: 250.02, ICD10: E11.65 (primary diagnosis) - not at goal per A1c but at goal per SMBG - intol of several meds - + diet + lifestyle is the plan - did not alina Precose - PIOGLITAZONE 15 MG TABLET -- at breakfast - CANAGLIFLOZIN to 300 mg daily with breakfast - Lantus 30 units daily - try 5.16ths needle to see if that prevents bu (more content not included)... [facility]05-16-[facility] History of Present illness Narrative* Ruth Apodaca MD - 02/26/2022 4:20 PM EDT DIABETES LAST SEEN 02-05-2022 CC: I am here for diabetes VIRTUALLY HISTORY OF PRESENT ILLNESS 46 year old female who initially presented 08-18-2021 for evaluation of uncontrolled Diabetes with hyperglycemia, seen at the request of Triston James MD Uncontrolled Diabetes with hyperglycemia AT THE TIME OF INITIAL PRESENTATION: Duration: 4 years Severity: historically at goal Context: Rheumatoid arthrtis Modifying factors: single oral agent Associated Signs & Symptoms: hands and feet -- pain; sees podiatry OF NOTE: did not alina metformin; many drug sensitivities. FOLLOW UP VISIT 02-05-2022 VIRTUALLY: Presents in routine follow up. BG logs not submitted ahead oftime No new labs. Earnestisabella is working during the day. FOLLOW UP VISIT 02-26-2022 VIRTUALLY: BG not submitted ahead of time. She continues to titrate the Lantus and at 34 units CO-MORBIDITIES: COMPLICATIONS: denies SMBG Type of Monitor: Frequency of Monitoring: daily BG Values: FASTIN, 120.109. 136 NOON: 113, 117, 119, DINNER: HS DIET The patient's current diet is: ad suhail but is quite careful with her food choices Number of meals / snacks per day: 3 / HYPOGLYCEMIA AWARENESS / INCIDENCE Hypoglycemia awareness & typical blood sugar level when symptoms occur: none Frequency of hypoglycemia is: EXERCISE: walk 20 - 30 min daily during the week REVIEW OF SYSTEMS: GENERAL: wt is up EYES: ok CARDIAC: neg LUNG neg GI: neg : neg SKIN: MUSCULO-SKELETAL: RA FEET painful RA PSYCH: DEPRESSION: NERVOUS SYSTEM: denies The remainder of the ROS is otherwise negative DIABETES-RELATED HEALTH MAINTENANCE: OPHTHALMOLOGY: PODIATRY: up to date EDUCATION: historically MEDICAL HISTORY: RA T2DM SURGICAL HISTORY: FAMILY HISTORY: FAMILY HISTORY Problem Relation Age of Onset Hypertension Mother Hyperlipidemia Father Fibromyalgia Sister other (Psoriatic arthritis) Sister other (Sjogren syndrome) Sister other (Raynaud's disease) Sister SOCIAL HISTORY: Social History Tobacco Use Smoking status: Never Smoker Smokeless tobacco: Never Used Vaping Use Vaping Use: Never used Substance Use Topics Alcohol use: Not on file Drug use: Never CURRENT MEDICATIONS: Current Outpatient Medications on File Prior to Visit Medication Sig canagliflozin (INVOKANA) 100 mg tab Take 1 tablet by mouth daily with breakfast. blood sugar diagnostic ([employer]UCH ULTRA TEST) test strip Use as instructed to test blood sugars three times daily amoxicillin (POLYMOX, AMOXIL) 500 mg capsule Take 500 mg by mouth twice daily. carisoprodol (SOMA) 350 mg tablet Take 350 mg by mouth once daily. Cetirizine (ZYRTEC) 10 mg cap Take 10 mg by mouth once daily. dicyclomine (BENTYL) 10 mg capsule Take 10 mg by mouth as needed. esomeprazole (NEXIUM) 40 mg capsule Take 40 mg by mouth once daily. gabapentin (NEURONTIN) 300 mg capsule Take 600 mg by mouth once daily. ibuprofen (MOTRIN) 800 mg tablet Take 800 mg by mouth three times daily as needed. lidocaine (XYLOCAINE) 5 % ointment Apply 1 application to affected area at bedtime as needed. loperamide (IMODIUM) 2 mg cap(s) Take 2 mg by mouth as needed. Milnacipran (SAVELLA) 100 mg tab Take 100 mg by mouth once daily. montelukast (SINGULAIR) 10 mg tablet Take 10 mg by mouth once daily. Norethindrone-Eth Estradiol 1-35 mg-mcg per tablet Take 1 tablet by mouth once daily. propranolol ER (INDERAL LA) 160 mg Cs24 Take 160 mg by mouth once daily. traZODone (DESYREL) 150 mg tablet Take 150 mg by mouth daily at bedtime. triamcinolone acetonide (KENALOG) 0.5 % cream Apply 1 application to affected area as needed. No current facility-administered medications on file prior to visit. LABS: ALT (U/L) Date Value 11/30/2019 8 Potassium (mmol/L) Date Value 11/30/2019 4.1 Creatinine (mg/dL) Date Value 11/30/2019 0.88 Glucose (mg/dL) Date Value 11/30/2019 164 PHYSICAL EXAM: VIRTUALLY Appearance: Well- appearing, alert; Skin: color and turgor are wnl Eyes conjunctiva and sclera normal Neck Supple, normal in appearance ASSESSMENT & RECOMMENDATIONS ASSESSMENT/PLAN: 1. Uncontrolled type 2 diabetes mellitus with hyperglycemia, withlong-term current use of insulin (HCC) - ICD9: 250.02, ICD10: E11.65 (primary diagnosis) - not at goal per A1c but at goal per SMBG - intol of several meds - + diet + lifestyle is the plan - did not alina Precose - PIOGLITAZONE 15 MG TABLET -- at breakfast - CANAGLIFLOZIN to 300 mg daily with breakfast - Lantus 30 units daily - try 5.16ths needle to see if that prevents burning. - 8 week follow up Driving and Diabetes has been reviewed with the patient. The Patient was instructed to contact this office if the blood sugar readings are consistently highor if they are experiencing frequent episodes of hypoglycemia. Next visit in: 8 weeks or so Patient is to continue to follow up with her PCP and with other consultants regarding her other medical problems. I thank you for the opportunity to participate in the care of Nathalia Patino. Please do not hesitate to contact me if you have further concerns or questions. This chart has been routed to the referring provider electronically Ruth Apodaca MS, RD, MD, CCD, FACN, FACP, DENISSE BEE Diplomate, [place] [employer] Diplomate, National Board of [employer]ician [employer] Special[employer] Department of Endocrinology / -20 / [phone] / [id number] Any part of this document that has been added/copied & pasted from other documents has been reviewed for accuracy and updated as appropriate at the time of the patient encounter [facility] NoteHNO ID: [id number] Author: Ruth Apodaca MD Service: ? Author Type: Physician Type: Progress Notes Filed: 02/05/2022 4:55 PM Note Text: DIABETES LAST SEEN 12-01-2021 CC: I am here for diabetes VIRTUALLY HISTORY OF PRESENT ILLNESS 46 year old female who initially presented 08-18-2021 for evaluation of uncontrolled Diabetes with hyperglycemia, seen at the request of Triston James MD Uncontrolled Diabetes with hyperglycemia AT THE TIME OF INITIAL PRESENTATION: Duration: 4 years Severity: historically at goal Context: Rheumatoid arthrtis Modifying factors: single oral agent Associated Signs AND Symptoms: hands and feet -- pain; sees podiatry OF NOTE: did not alina metformin; many drug sensitivities FOLOW UP VISIT 12-01-2021 VIRTUALLY: Has been doing well but had some issues when first statring acarbose -- now alina well; continues to take Invokana and Actos -- still not fully at goal. Many meds she has tried have not helped including GLP1. Wiling to try higher dose invokana -- would like to try 200 mg daily . . . FOLLOW UP VISIT 02-05-2022 VIRTUALLY: Presents in routine follow up. BG logs not submitted ahead of time No new labs. [employer] is working during the day. CO-MORBIDITIES: COMPLICATIONS: denies SMBG Type of Monitor: Frequency of Monitoring: daily BG Values: FASTIN, 171, 280 NOON: DINNER: HS DIET The patient's current diet is: ad suhail but is quite careful with her food choices Number of meals / snacks per day: 3 / HYPOGLYCEMIA AWARENESS / INCIDENCE Hypoglycemia awareness AND typical blood sugar level when symptoms occur: none Frequency of hypoglycemia is: EXERCISE: walk 20 - 30 min daily during the week REVIEW OF SYSTEMS: GENERAL: wt is up EYES: ok CARDIAC: neg LUNG neg GI: neg : neg SKIN: MUSCULO-SKELETAL: RA FEET painful RA PSYCH: DEPRESSION: NERVOUS SYSTEM: denies The remainder of the ROS is otherwise negative DIABETES-RELATED HEALTH MAINTENANCE: OPHTHALMOLOGY: PODIATRY: up to date EDUCATION: historically MEDICAL HISTORY: RA T2DM SURGICAL HISTORY: FAMILY HISTORY: FAMILY HISTORY Problem Relation Age of Onset - Hypertension Mother - Hyperlipidemia Father - Fibromyalgia Sister - other (Psoriatic arthritis) Sister - other (Sjogren syndrome) Sister - other (Raynaud's disease) Sister SOCIAL HISTORY: Social History Tobacco Use - Smoking status: Never Smoker - Smokeless tobacco: Never Used Vaping Use - Vaping Use: Never used Substance Use Topics - Alcohol use: Not on file - Drug use: Never CURRENT MEDICATIONS: Current Outpatient Medications on File Prior to Visit Medication Sig - canagliflozin (INVOKANA) 100 mg tab Take 1 tablet by mouth daily with breakfast. - blood sugar diagnostic ([employer] ULTRA [employer]) test strip Use as instructed to test blood sugars three times daily - amoxicillin (POLYMOX, AMOXIL) 500 mg capsule Take 500 mg by mouth twice daily. - carisoprodol (SOMA) 350 mg tablet Take 350 mg by mouth once daily. - Cetirizine (ZYRTEC) 10 mg cap Take 10 mg by mouth once daily. - dicyclomine (BENTYL) 10 mg capsule Take 10 mg by mouth as needed. - esomeprazole (NEXIUM) 40 mg capsule Take 40 mg by mouth once daily. - gabapentin (NEURONTIN) 300 mg capsule Take 600 mg by mouth once daily. - ibuprofen (MOTRIN) 800 mg tablet Take 800 mg by mouth three times daily as needed. - lidocaine (XYLOCAINE) 5 % ointment Apply 1 application to affected area at bedtime as needed. - loperamide (IMODIUM) 2 mg cap(s) Take 2 mg by mouth as needed. - Milnacipran (SAVELLA) 100 mg tab Take 100 mg by mouth once daily. - montelukast (SINGULAIR) 10 mg tablet Take 10 mg by mouth once daily. - Norethindrone-Eth Estradiol 1-35 mg-mcg per tablet Take 1 tablet by mouth once daily. - propranolol ER (INDERAL LA) 160 mg Cs24 Take 160 mg by mouth once daily. - traZODone (DESYREL) 150 mg tablet Take 150 mg by mouth daily at bedtime. - triamcinolone acetonide (KENALOG) 0.5 % cream Apply 1 application to affected area as needed. No current facility-administered medications on file prior to visit. LABS: ALT (U/L) Date Value 11/30/2019 8 Potassium (mmol/L) Date Value 11/30/2019 4.1 Creatinine (mg/dL) Date Value 11/30/2019 0.88 Glucose (mg/dL) Date Value 11/30/2019 164 PHYSICAL EXAM: VIRTUALLY Appearance: Well- appearing, alert; Skin: color and turgor are wnl Eyes conjunctiva and sclera normal Neck Supple, normal in appearance ASSESSMENT AND RECOMMENDATIONS ASSESSMENT/PLAN: 1. Uncontrolled type 2 diabetes mellitus with hyperglycemia, without long-term current use of insulin (HCC) - ICD9: 250.02, ICD10: E11.65 (primary diagnosis) 2. Diabetes mellitus treated with oral medication (HCC) - ICD9: 250.00, ICD10: E11.9, Z79.84 - not at goal (more content not included)...[facility]04-[facility] History of Present illness Narrative* Ruth Apodaca MD - 02/05/2022 4:20 PM EDT DIABETES LAST SEEN 12-01-2021 CC: I am here for diabetes VIRTUALLY HISTORY OF PRESENT ILLNESS 46 year old female who initially presented 08-18-2021 for evaluation of uncontrolled Diabetes with hyperglycemia, seen at the request of Triston James MD Uncontrolled Diabetes with hyperglycemia AT THE TIME OF INITIAL PRESENTATION: Duration: 4 years Severity: historically at goal Context: Rheumatoid arthrtis Modifying factors: single oral agent Associated Signs & Symptoms: hands and feet -- pain; sees podiatry OF NOTE: did not alina metformin; many drug sensitivities FOLOW UP VISIT 12-01-2021 VIRTUALLY: Has been doing well but had some issues when first statring acarbose -- now alina well; continues to take Invokana and Actos -- still not fully at goal. Many meds she has tried have not helped including GLP1. Wiling to try higher dose invokana -- would like to frp153 mg daily . . . FOLLOW UP VISIT 02-05-2022 VIRTUALLY: Presents in routine follow up. BG logs not submitted ahead oftime No new labs. [employer] is working during the day. CO-MORBIDITIES: COMPLICATIONS: denies SMBG Type of Monitor: Frequency of Monitoring: daily BG Values: FASTIN, 171, 280 NOON: DINNER: HS DIET The patient's current diet is: ad suhail but is quite careful with her food choices Number of meals / snacks per day: 3 / HYPOGLYCEMIA AWARENESS / INCIDENCE Hypoglycemia awareness & typical blood sugar level when symptoms occur: none Frequency of hypoglycemia is: EXERCISE: walk 20 - 30 min daily during the week REVIEW OF SYSTEMS: GENERAL: wt is up EYES: ok CARDIAC: neg LUNG neg GI: neg : neg SKIN: MUSCULO-SKELETAL: RA FEET painful RA PSYCH: DEPRESSION: NERVOUS SYSTEM: denies The remainder of the ROS is otherwise negative DIABETES-RELATED HEALTH MAINTENANCE: OPHTHALMOLOGY: PODIATRY: up to date EDUCATION: historically MEDICAL HISTORY: RA T2DM SURGICAL HISTORY: FAMILY HISTORY: FAMILY HISTORY Problem Relation Age of Onset Hypertension Mother Hyperlipidemia Father Fibromyalgia Sister other (Psoriatic arthritis) Sister other (Sjogren syndrome) Sister other (Raynaud's disease) Sister SOCIAL HISTORY: Social History Tobacco Use Smoking status: Never Smoker Smokeless tobacco: Never Used Vaping Use Vaping Use: Never used Substance Use Topics Alcohol use: Not on file Drug use: Never CURRENT MEDICATIONS: Current Outpatient Medications on File Prior to Visit Medication Sig canagliflozin (INVOKANA) 100 mg tab Take 1 tablet by mouth daily with breakfast. blood sugar diagnostic ([employer]UCH ULTRA TEST) test strip Use as instructed to test blood sugars three times daily amoxicillin (POLYMOX, AMOXIL) 500 mg capsule Take 500 mg by mouth twice daily. carisoprodol (SOMA) 350 mg tablet Take 350 mg by mouth once daily. Cetirizine (ZYRTEC) 10 mg cap Take 10 mg by mouth once daily. dicyclomine (BENTYL) 10 mg capsule Take 10 mg by mouth as needed. esomeprazole (NEXIUM) 40 mg capsule Take 40 mg by mouth once daily. gabapentin (NEURONTIN) 300 mg capsule Take 600 mg by mouth once daily. ibuprofen (MOTRIN) 800 mg tablet Take 800 mg by mouth three times daily as needed. lidocaine (XYLOCAINE) 5 % ointment Apply 1 application to affected area at bedtime as needed. loperamide (IMODIUM) 2 mg cap(s) Take 2 mg by mouth as needed. Milnacipran (SAVELLA) 100 mg tab Take 100 mg by mouth once daily. montelukast (SINGULAIR) 10 mg tablet Take 10 mg by mouth once daily. Norethindrone-Eth Estradiol 1-35 mg-mcg per tablet Take 1 tablet by mouth once daily. propranolol ER (INDERAL LA) 160 mg Cs24 Take 160 mg by mouth once daily. traZODone (DESYREL) 150 mg tablet Take 150 mg by mouth daily at bedtime. triamcinolone acetonide (KENALOG) 0.5 % cream Apply 1 application to affected area as needed. No current facility-administered medications on file prior to visit. LABS: ALT (U/L) Date Value 11/30/2019 8 Potassium (mmol/L) Date Value 11/30/2019 4.1 Creatinine (mg/dL) Date Value 11/30/2019 0.88 Glucose (mg/dL) Date Value 11/30/2019 164 PHYSICAL EXAM: VIRTUALLY Appearance: Well- appearing, alert; Skin: color and turgor are wnl Eyes conjunctiva and sclera normal Neck Supple, normal in appearance ASSESSMENT & RECOMMENDATIONS ASSESSMENT/PLAN: 1. Uncontrolled type 2 diabetes mellitus with hyperglycemia, without long-term current use of insulin (HCC) - ICD9: 250.02, ICD10: E11.65 (primary diagnosis) 2. Diabetes mellitus treated with oral medication (HCC) - ICD9: 250.00, ICD10: E11.9, Z79.84 - not at goal - intol of several meds - + diet + lifestyle is the plan - did not alina Precose - PIOGLITAZONE 15 MG TABLET -- bid with meals - CANAGLIFLOZIN to 300 mg daily with breakfast - add Lantus 10 unit(s) each hs -- talked her thru an injection via ZOOM -- - see back fairly soon - 3 weeks or so Driving and Diabetes has been reviewed with the patient. The Patient was instructed to contact this office if the blood sugar readings are consistently highor if they are experiencing frequent episodes of hypoglycemia. Next visit in: 4 - 6 weeks or so Patient is to continue to follow up with her PCP and with other consultants regarding her other medical problems. I thank you for the opportunity to participate in the care of Nathalia Patino. Please do not hesitate to contact me if you have further concerns or questions. This chart has been routed to the referring provider electronically Ruth Apodaca, MS, RD, MD, CCD, FACN, FACP, FACE, DENISSE Diplomate, [place] [employer] Diplomate, National Board of Physician Nutrition Specialists Department of Endocrinology / F-20 / [phone] / [id number] Any part of this document that has been added/copied & pasted from other documents has been reviewed for accuracy and updated as appropriate at the time of the patient encounter documented in this [facility] Miscellaneous Notes* Telephone Encounter - Alia Saha Ma - 01/19/2022 10:26 AM EDT Sent pt a [employer] message * Telephone Encounter - Ruth Apodaca MD - 01/19/2022 9:54 AM EDT Please remind the patient that she is due for follow up Patient's request for medication is as follows Signed Prescriptions Disp Refills pioglitazone (ACTOS) 15 mg tablet 180 tablet 0 Sig: TAKE 1 TABLET TWICE A DAY WITH MEALS DARNELL: No Authorizing Provider: RUTH APODACA entered - please phone pharmacy and notify patient. Ruth Apodaca MD * Telephone Encounter - River Bradshaw MA - 01/19/2022 8:45 AM EDT Requester: Pharmacy Patients last Endocrinology visit occurred 12/01/21. Follow-up evaluation has been established N/A. Pending Prescriptions Disp Refills PIOGLITAZONE 15 MG TABLET 180 tablet 3 Sig: TAKE 1 TABLET TWICE A DAY WITH MEALS DARNELL: Yes If patient is due for an appointment please route to provider for refill consideration and also to the endo scheduling pool. PSS NOTE: Patient needs scheduled appointment No documented in this encounterHenry [facility] History of Past illness Narrative* Problem Noted Date Resolved Date Diabetes mellitus treated with oral medication 0 12/01/2019 01/04/2023 documented as of this encounter (statuses as of 01/04/2023) [facility] of Past illness Narrative* Problem Noted Date Resolved Date Diabetes mellitus treated with oral medication 0 12/01/2019 01/04/2023 documented as of this encounter (statuses as of 04/10/2023) [facility]Reason for visit Narrative* Chief Complaint ear pain Referral Triston James / meter Reason for Visit Otalgia, right ear Type 2 diabetes mellitus with hyperglycemia Vitamin D toxicity BMI 34.0-34.9,adult Dietary counseling and surveillance Hyperlipidemia Hypertension Type 2 diabetes mellitus with hyperglycemia [facility] Work Phone: chief complaint+Reason for visit Narrative* Chief Complaint ear pain Referral Triston James / meter N20.0 2 week per TKM Reason for Visit Otalgia, right ear Type 2 diabetes mellitus with hyperglycemia Vitamin D toxicity BMI 34.0-34.9,adult Dietary counseling and surveillance Hyperlipidemia Hypertension Type 2 diabetes mellitus with hyperglycemia BMI 34.0-34.9,adult Dietary counseling and surveillance Hyperlipidemia Hypertension Type 2 diabetes mellitus with hyperglycemia [facility] Work Phone: chief complaint+Reason for visit Narrative* Reason for Visit BMI 29.0-29.9,adult Dietary counseling and surveillance Hyperlipidemia Hypertension Type 2 diabetes mellitus with hyperglycemia [facility] Work Phone: chief complaint+Reason for visit Narrative* Chief Complaint Wellness/discuss med Reason for Visit BMI 29.0-29.9,adult Dietary counseling and surveillance Hyperlipidemia Hypertension Type 2 diabetes mellitus with hyperglycemia [facility] Work Phone: Evaluation + Plan note Future Appointments Appointment Date:02/18/2023 08:15:00 AM Scheduled Provider:Ganesh MAY MD Location:[facility] Appointment Type:URO Office Visit [facility] evaluation + Plan note Future Appointments Appointment Date:02/24/2024 08:00:00 AM Scheduled Provider:Kang BLANCO MD Location:[facility] Appointment Type:URO Office Visit [facility] Evaluation + Plan note Future Appointments Appointment Date:02/23/2025 08:15:00 AM Scheduled Provider:Kang BLANCO MD Location:[facility] Appointment Type:URO Office Visit [facility] Evaluation note* Diagnosis Uncontrolled type 2 diabetes mellitus with hyperglycemia, without long-term current use of insulin (HCC) [facility]* Diagnosis Uncontrolled type 2 diabetes mellitus with hyperglycemia, without long-term current use of insulin (HCC)- Primary documented in this encounter [facility] note* Diagnosis Uncontrolled type 2 diabetes mellitus with hyperglycemia, without long-term current use of insulin (HCC) documented in this encounter [facility] note* Diagnosis Vaginal yeast infection- Primary Candidiasis of vulva and vagina documented in this encounter [facility] note* Diagnosis Uncontrolled type 2 diabetes mellitus with hyperglycemia, with long-term current use of insulin (HCC)- Primary documented in this encounter [facility] noteNo InformationNort [employer] Other Evaluation note* Diagnosis Type 2 diabetes mellitus with hyperglycemia, with long-term current use of insulin (HCC)- Primary documented in this encounter [facility] noteNo assessment information [facility] Work Phone: [id number] note* Diagnosis Disorder of sacrum- Primary Disorders of sacrum [facility] Diagnosis Onset Date Resolution Status Type 2 diabetes mellitus with hyperglycemia acute Vitamin D imbalance acute Vitamin D toxicity acute [facility] Work Phone: evaluation note* Diagnosis Onset Date Resolution Status Otalgia, right ear acute Type 2 diabetes mellitus with hyperglycemia acute Vitamin D toxicity acute BMI 34.0-34.9,adult acute Dietary counseling and surveillance acute Hyperlipidemia acute Hypertension acute Type 2 diabetes mellitus with hyperglycemia acute [facility] Work Phone: evaluation note* Diagnosis Onset Date Resolution Status Otalgia, right ear acute Type 2 diabetes mellitus with hyperglycemia acute Vitamin D toxicity acute BMI 34.0-34.9,adult acute Dietary counseling and surveillance acute Hyperlipidemia acute Hypertension acute Type 2 diabetes mellitus with hyperglycemia acute BMI 34.0-34.9,adult acute Dietary counseling and surveillance acute Hyperlipidemia acute Hypertension acute Type 2 diabetes mellitus with hyperglycemia acute [facility] Work Phone: Evaluation note* Diagnosis Onset Date Resolution Status BMI 29.0-29.9,adult acute Dietary counseling and surveillance acute Hyperlipidemia acute Hypertension acute Type 2 diabetes mellitus with hyperglycemia acute [facility] Work Phone: Evaluation note* Diagnosis Lumbar radiculopathy- Primary Thoracic or lumbosacral neuritis or radiculitis, unspecified Lumbar radiculopathy- Primary Thoracic or lumbosacral neuritis or radiculitis, unspecified Lumbar radiculopathy Thoracic or lumbosacral neuritis or radiculitis, unspecified [facility] Diagnosis Lumbar radiculopathy- Primary Thoracic or lumbosacral neuritis or radiculitis, unspecified Lumbar radiculopathy- Primary Thoracic or lumbosacral neuritis or radiculitis, unspecified Lumbar radiculopathy, chronic [facility] Diagnosis Lumbar radiculopathy- Primary Thoracic or lumbosacral neuritis or radiculitis, unspecified Lumbar radiculopathy- Primary Thoracic or lumbosacral neuritis or radiculitis, unspecified Lumbar radiculopathy Thoracic or lumbosacral neuritis or radiculitis, unspecified [facility] Diagnosis Lumbar radiculopathy- Primary Thoracic or lumbosacral neuritis or radiculitis, unspecified [facility]* Diagnosis Well woman exam with routine gynecological exam Routine gynecological examination Breast cancer screening by mammogram Postmenopausal state Asymptomatic postmenopausal status (age-related) (natural) documented [facility] N[facility] - Reported* Type Description Date Medical History GERD (gastroesophageal reflux di sease) Medical History Migraine Medical History Kidney stones Medical History acute asthma Medical History rheumatoid arthritis Medical History DM II Medical History HTN Surgical History C section Surgical History hernia repair Surgical History see medical hx Surgical History kidney stones 04/2019 Surgical History tonsillectomy Surgical History Kidney Stones 6-17 Surgical History lithotripsy Hospitalization History see above [employer] Other Hospital course Narrative No data available for this section [facility] [place] InstructionsNot on filedocumented in this encounter [facility]Not on filedocumented in this encounter [facility]ructionsNot on filedocumented in this encounter [facility] No data available for this section [facility] [place] Reason for Referral Reason *FU 05/03 Evaluate and Treat Low Back Pain Diagnosis 1 Mechanical low back pain (M54.5) Referral Organization [facility] urosurgery Referring Provider First Name Luc Referring Provider Last Name Erika Referring Provider Specialty Neurologica l Surgery Referred Organization [facility] Referred Provider Jr. Campbell William Referred Address [address],[place], [place],[address] Referred Provider Specialty Pain Medicin e Referral Priority Routine General Notes Fore, Mallory M 022 07:45:58 AM >Received today. Dr. Campbell's office requests us to fill out form and fax referral to them and they will review the referral and call patient. Referral was fax Specialty Diagnoses / Procedures Referred By Valentino anguiano [place] [address] [place] [address] Referral ID Status Reason Start Date Expiration Date Visits Re quested Visits Authorized [id number] Closed 1 1 Specialty Diagnoses / Procedures Referred By Contac silvio Referred To Contact Diagnoses Disorder of sacrum Procedures Case request operating room: [employer]: right SI Kenneth Reyes PA [address], [address] [place] [id number] Referral ID Status Reason Start Date Expiration Date V isits Requested Visits Authorized [id number] Pending Review 11/26/2023 11/25/2024 1 1 Specialty Diagnoses / Procedures Referred By Contac t Referred To Contact Diagnoses Disorder of sacrum Procedures Case request operating room: RADIOFREQUENCY [facility]BLATION SPINAL: left SI Kenneht Reyes PA [address], [address] [place] [id number] Referral ID Status Reason Start Date Expiration Date V isits Requested Visits Authorized [id number] Pending Review 11/26/2023 11/25/2024 1 1 Summary Purpose Family History Relationship Condition Age at Onset Recorded Date/T rita Not Specified Hypertension Unknown Relationship Condition Age at Onset Recorded Date/T rita Not Specified Hypertension Unknown father High blood cholesterol Unknown Heart disease Unknown sister Psoriatic arthritis Unknown Rheumatoid arthritis Unknown Relationship Condition Age at Onset Recorded Date/T rita mother Hypertension Unknown father High blood cholesterol Unknown Heart disease Unknown sister Psoriatic arthritis Unknown Rheumatoid arthritis Unknown Advance Directives Advance Directive Response Recorded Date/ Time Advance Directives No September 11:35am Chief Complaint and Reason for Visit Chief Complaint ear pain Reason for Visit Type 2 diabetes sara itus with hyperglycemia Vitamin D imbalance Vitamin D toxicity Additional Source Comments Source Comments (unrecognize d section and content) In the event this informatio n is protected by the Federal Confidentiality of Alcohol and Drug Abuse Patient Records regulations: The Federal rules restrict any use of the information to criminally investigate or prosecute any alcohol or drug abuse patient.[facility] HospitalIn the event this information is protected by the Federal Confidentiality of Alcohol and Drug Abuse Patient Records regulations: The Federal rules restrict any use of the information to criminally investigate or prosecute any alcohol or drug abuse patient.[facility] HospitalIn the event this information is protected by the Federal Confidentiality of Alcohol and Drug Abuse Patient Records regulations: The Federal rules restrict any use of the information to criminally investigate or prosecute any alcohol or drug abuse patient.[facility] HospitalIn the event this information is protected by the Federal Confidentiality of Alcohol and Drug Abuse Patient Records regulations: The Federal rules restrict any use of the information to criminally investigate or prosecute any alcohol or drug abuse patient.[facility] HospitalIn the event this information is protected by the Federal Confidentiality of Alcohol and Drug Abuse Patient Records regulations: The Federal rules restrict any use of the information to criminally investigate or prosecute any alcohol or drug abuse patient.[facility] HospitalIn the event this information is protected by the Federal Confidentiality of Alcohol and Drug Abuse Patient Records regulations: The Federal rules restrict any use of the information to criminally investigate or prosecute any alcohol or drug abuse patient.[facility] HospitalIn the event this information is protected by the Federal Confidentiality of Alcohol and Drug Abuse Patient Records regulations: The Federal rules restrict any use of the information to criminally investigate or prosecute any alcohol or drug abuse patient.[facility] HospitalIn the event this information is protected by the Federal Confidentiality of Alcohol and Drug Abuse Patient Records regulations: The Federal rules restrict any use of the information to criminally investigate or prosecute any alcohol or drug abuse patient.[facility] HospitalIn the event this information is protected by the Federal Confidentiality of Alcohol and Drug Abuse Patient Records regulations: The Federal rules restrict any use of the information to criminally investigate or prosecute any alcohol or drug abuse patient.[facility] Reason for Visit (unrecogniz ed section and content) Reason Comments Refill Request Reason Comments Diabetes Reason Onset Date Comments Refill Request 10/12/2022 Reason Comments Prep for virtual visit Reason Comments High Blood Sugar Reason Onset Date Comments Med Refill 11/06/2023 Reason Comments Back Pain Reason Comments Back Pain Reason Comments Well Women Visit Care Teams (unrecognized sec tion and content) Vineyard Worker Relationship Specialty Start Date End Date Triston James MD [address] [place] [address] PCP - General Family Practice 06/18/19 Vineyard Worker Relationship Specialty Start Date End Date Triston James MD [address] [place] [address] PCP - General Family Practice 06/18/19 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 Worker Relationship Specialty Start Date End Date Triston James MD [address] [facility] [place] [place] [address] PCP - General Family Practice 06/18/19 Vineyard Worker Relationship Specialty Start Date End Date Triston James MD [address] [facility] [place] [address] PCP - General Family Practice 06/18/19 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 Worker Relationship Specialty Start Date End Date Triston James MD [address] [facility] [place] [address] PCP - General Family Medicine 06/18/19 Vineyard Worker Relationship Specialty Start Date End Date Triston James MD [address] [facility] [place] [phone] PCP - General Family Medicine 06/18/19 Vineyard Worker Relationship Specialty Start Date End Date Triston James MD [address] [facility] [place] [address] PCP - General Family Medicine 06/18/19 Team Status: Active Member Role Status Dates Triston James MD Primary Care Provider Active Team Status: Inactive Member Role Status Dates Triston James MD Primary Care Provider Active Ganesh May MD Attending Provider Active Vineyard Worker Relationship Specialty Start Date End Date Triston James MD [address] [place] [address], [place] [id number] PCP - General 08/19/17 Vineyard Worker Relationship Specialty Start Date End Date Triston James MD [address] [place] [address], [place] [id number] PCP - General 08/19/17 Team Status: Inactive Member Role Status Dates Triston James MD Primary Care Provide r, Attending Provider Active Start: January 21, 2024 End: January 21, 2024 Team Status: Inactive Member Role Status Dates Triston James MD Primary Care Provider Active Start: February 12, 2024 End: February 12, 2024 Dawit Bowen , DOCTOR OF AUDIOLOGY Attending Provider Active Start: February 12, 2024 End: February 12, 2024 Team Status: Inactive Member Role Status Dates Triston James MD Primary Care Provider Active Start: February 13, 2024 End: February 13, 2024 Kang Blanco MD Attending Provider Active St art: February 13, 2024 End: February 13, 2024 Team Status: Active Member Role Status Dates Triston James MD Primary Care Provider Active Start: February 14, 2024 Tondra Raul Bowen , DOCTOR OF AUDIOLOGY Attending Provider Active Start: February 14, 2024 Team Status: Inactive Member Role Status Dates Triston James MD Primary Care Provider Active Start: February 27, 2024 End: February 27, 2024 Dawit Bowen , DOCTOR OF AUDIOLOGY Attending Provider Active Start: February 27, 2024 End: February 27, 2024 Team Status: Inactive Member Role Status Dates Triston James MD Primary Care Provider Active Start: March 30, 2024 End: March 30, 2024 Tona Raul Bowen , DOCTOR OF AUDIOLOGY Active Start: March 30, 2024 End: March 30, 2024 Arun Parra RN Attending Provider Active St art: March 30, 2024 End: March 30, 2024 Team Status: Inactive Member Role Status Dates Triston James MD Primary Care Provider Active Start: June 11, 2024 End: June 11, 2024 Tondra Raul Bowen , DOCTOR OF AUDIOLOGY Attending Provider Active Start: June 11, 2024 End: June 11, 2024 Vineyard Worker Relationship Specialty Start Date End Date Triston James MD [address] [place], [place] [id number] PCP - General 08/19/17 Vineyard Worker Relationship Specialty Start Date End Date Triston James MD [address] [place] [address] PCP - General 08/19/17 Team Status: Active Member Role Status Dates Triston James MD Primary Care Provide r, Attending Provider Active Start: August 11, 2024 Team Status: Inactive Member Role Status Dates Triston James MD Primary Care Provide r, Attending Provider Active Start: August 11, 2024 End: August 11, 2024 Vineyard Worker Relationship Specialty Start Date End Date Triston James MD [address] [place] [address] PCP - General 08/19/17 Vineyard Worker Relationship Specialty [place] [address] [place] [address] PCP - General 08/19/17 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 Worker Relationship Specialty [place] [address] [place], [place] [id number] PCP - General 08/19/17 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 Worker Relationship Specialty [place] [address] [place] [phone] PCP - General Family Medicine 10/22/23 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 Worker Relationship Specialty [place] [address] [place] [phone] PCP - General Family Medicine 10/22/23 INFORMATION SOURCE (unrecogn ized section and content) DATE CREATED AUTHOR 10/25/2022 [facility] DATE CREATED AUTHOR AUTHOR'S ORGANIZ ATION 01/06/2023 [facility] DATE CREATED AUTHOR AUTHOR'S ORGANIZ ATION 10/23/2023 [facility] EPIC DATE CREATED AUTHOR AUTHOR'S ORGANIZ ATION 02/15/2024 [facility] DATE CREATED AUTHOR AUTHOR'S ORGANIZ ATION 03/01/2024 [facility] DATE CREATED AUTHOR AUTHOR'S ORGANIZ ATION 09/07/2024 [facility] DATE CREATED AUTHOR AUTHOR'S ORGANIZ ATION 10/03/2024 [facility] Goals (unrecognized section and content) Goals may be documented in a n alternate section FOR RECORDS PERTAINING TO PATIENTS WHO ARE OR HAVE BEEN ENROLLED IN A CHEMICAL DEPENDENCY/SUBSTANCEABUSE PROGRAM, SOME INFORMATION MAY BE OMITTED. This clinical summary was aggregated from multiple sources. Caution should be exercised in using it in the provision of clinical care. This summary normalizes information from multiple sources, and as a consequence, information in this document may materially change the coding, format and clinical context of patient data. In addition, data may be omitted in some cases. CLINICAL DECISIONS SHOULD BE BASED ON THE PRIMARY CLINICAL RECORDS. [facility] [employer] [facility]. provides no warranty or guarantee of the accuracy or completeness of information in this document.
[2024-10-29 00:07] LABS: Age Gdln ACOG Testing Note (.); HPV Aptima Negative (Negative); IGP, Aptima HPV, rfx 16/18,45 Note (.)
== END 2024-10-26 20:38 | disposition home or self-care (01) ==
LOC: LAB 20:37
PROVIDERS: Visit Provider Obstetrics & Gynecology
DX: Z01.419 Encounter for gynecological examination (general) (routine) without abnormal findings (principal)
CPT/HCPCS: 88175